=== PATIENT | female | born 1960 | race Caucasian/White ===

== ENCOUNTER 2017-06-13 10:47 | Emergency (ER) | payer MEDICARE ==
[2017-06-13 11:12] VITALS: BP 130/82
[2017-06-13] MEDS ORDERED: Ibuprofen TAB* 600 MG PO ONE (11:47)
[2017-06-13] MEDS ORDERED: Lidocaine/Epineph/Tetraca SOL* (LET solution) 4 ML BTL TOPICAL ONE (11:48)
[2017-06-13] MEDS ORDERED: Sulfamethox/Trimethoprim DS 800/160* TAB PO ONE (11:52)
--- NOTE | 2017-06-13 11:52 | UC ---
Skin Complaint HPI - HPI Summary HPI Summary: abscess on lower abdomen worsening over past 4-5 days - History of Current Complaint Chief Complaint: UCSkin Time Seen by Provider: 06/13/17 11:36 Stated Complaint: PERSONAL SKIN COMPLAINT Hx Obtained From: Patient Hx Last Menstrual Period: age 32 yrs ?: No Onset/Duration: Sudden Onset, Lasting Days, Worse Since - past 2 days Timing: Constant Onset Severity: Mild Current Severity: Moderate Pain Intensity: 6 Pain Scale Used: 0-10 Numeric Location: Discrete - lower abdomen, pubic mons Character: Swelling, Pain, Redness, Raised Aggravating: Nothing Alleviating: Heat, OTC Meds Associated Signs & Symptoms: Positive: Tenderness - Allergy/Home Medications Allergies/Adverse Reactions: Allergies Allergy/AdvReac Type Severity Reaction Status Date / Time Adhesive Tape Allergy Intermediate RASH AND Verified 06/13/17 11:13 BLISTERS Codeine Allergy Unknown Nausea And Verified 06/13/17 11:13 Vomiting Penicillins Allergy Unknown Hives Verified 06/13/17 11:13 Review of Systems Constitutional: Negative Skin: Negative - 15 x9 cm of erythema, Other Eyes: Negative ENT: Negative Respiratory: Negative Cardiovascular: Negative Gastrointestinal: Negative Genitourinary: Negative Motor: Negative Neurovascular: Negative Musculoskeletal: Negative Neurological: Negative Psychological: Negative Is Patient Immunocompromised?: Yes - diabetic--hx MRSA infections All Other Systems Reviewed And Are Negative: Yes PMH/Surg Hx/FS Hx/Imm Hx Previously Healthy: No - MRSA skin infections Endocrine History: Diabetes - Surgical History Surgical History: Yes Surgery Procedure, Year, and Place: Hysterectomy - 1997 [facility], [facility]. Oophorectomy - 1997 [facility], [facility]. Back Surgery 7 times, fusion/rodding. Section - 1979. Section - 1981. Tonsillectomy/Adenoidectomy - 1975. Carpal Tunnel Release - 2007 (Right); right knee 2012 - Family History Known Family History: Positive: None - Social History Occupation: Disabled Lives: With Family Alcohol Use: Occasionally Alcohol Amount: 1-2 DRINK/MONTH Substance Use Type: None Smoking Status (MU): Former Smoker Type: Cigarettes Amount Used/How Often: 1PPD 10 YRS Have You Smoked in the Last Year: No When Did the Patient Quit Smoking/Using Tobacco: 05/2011 Physical Exam Triage Information Reviewed: Yes Appearance: No Pain Distress, Ill-Appearing - chronic, Obese Vital Signs: Initial Vital Signs Temp 98.5 F 06/13/17 11:01 Pulse 90 06/13/17 11:01 Resp 20 06/13/17 11:01 BP 130/82 06/13/17 11:01 Vital Signs Reviewed: Yes Eye Exam: Normal Eyes: Positive: Conjunctiva Clear ENT Exam: Normal ENT: Positive: Normal ENT inspection, Hearing grossly normal. Negative: Nasal congestion, Nasal drainage, Trismus, Muffled/hoarse voice Dental Exam: Normal Neck exam: Normal Neck: Positive: Supple, Nontender, No Lymphadenopathy Respiratory Exam: Normal Respiratory: Positive: Chest non-tender, Normal breath sounds, No respiratory distress, No accessory muscle use Cardiovascular Exam: Normal Cardiovascular: Positive: RRR, Pulses Normal, Brisk Capillary Refill Musculoskeletal Exam: Normal Musculoskeletal: Positive: Strength Intact, ROM Intact, No Edema Neurological Exam: Normal Neurological: Positive: Alert Psychological Exam: Normal Skin Exam: Normal Skin: Positive: Other - 15x9 cm erythma on pubic mons 5 x5 cm induration, Course/Dx - Course Course Of Treatment: Hot packs every couple of hours, bactrim, pain med follow with PCP on Friday for re-check - Differential Diagnoses - Skin Complaint Differential Diagnoses: Abscess, Cellulitis, Contact Dermatitis, Diabetes - Diagnoses Provider Diagnoses: Abscess with cellulitis Mons Pubis, NIDDM Discharge - Discharge Plan Condition: Stable Disposition: HOME Prescriptions: Sulfamethox/Trimethoprim DS* [Bactrim DS 800/160 TAB*] 1 tab PO BID #19 tab traMADol TAB* [Ultram*] 50 mg PO Q6HR PRN #30 tab MDD 4 PRN Reason: Pain Patient Education Materials: Abscess (ED), Cellulitis (ED), Warm Compress or Soak (ED) Referrals: Aarti Almazan NP [Primary Care Provider] - 06/16/17
== END 2017-06-13 13:05 | disposition home or self-care (01) ==
LOC: UCCORT 10:47
DX: L02.215 Cutaneous abscess of perineum (principal); E11.9 Type 2 diabetes mellitus without complications; Z87.891 Personal history of nicotine dependence; Z88.5 Allergy status to narcotic agent; Z88.0 Allergy status to penicillin
CPT/HCPCS: 10060; 99213; A9270-GY; G0463

== ENCOUNTER 2018-09-17 06:02 | Inpatient (IN) | payer MEDICARE ==
[~2018-09-17 06:02] MED LIST: Buffered Lidocaine 0.9% SYRIN* 5 ML/SYR SYRINGE INTRADERM ONE; DiMENhydriNATE IV* 50 MG/ML VIAL IV PUSH PRN; Famotidine IV* 10 MG/ML 2 ML (20 mg) IV ONE; Lactated Ringers 1000 ML Bag* 1,000 ML IV SCH; Morphine VIAL* 4 MG/ML VIAL (1 ml vial) IV PRN; Naloxone* 0.4 MG/ML 1 ML VIAL IV PRN; Ondansetron TAB* 4 MG PO ONE; PROCHLORPERAZINE INJ 5 MG/ML 2 ML VIAL IV PRN; Scopolamine 1.5 mg* PATCH TRANSDERM ONE; fentaNYL* 50 MCG/ML 2 ML VIAL (100 MCG VIAL) IV PRN; oxyCODONE/Acetamin 5/325 MG* TAB PO PRN
[2018-09-17] MEDS ORDERED: Thrombin 5,000 UNITS(BOVINE)* for Ultrasound Guided Pseudoaneursym ONE (06:38)
[2018-09-17] MEDS ORDERED: Bacitracin IV* 50,000 UNITS INJ ONE (06:38)
[2018-09-17] MEDS ORDERED: Lidocain 1% EPI 1:100,000 * 30 ML MDV ONE (06:38)
[2018-09-17] MEDS ORDERED: Clindamycin 900 MG/D5W BAG(*) 900 MG/50 ML BAG IVPB ONE (06:50)
[2018-09-17] MEDS ORDERED: Famotidine IV* 10 MG/ML 2 ML (20 mg) ONE (06:51)
[2018-09-17] MEDS ORDERED: Ondansetron ODT TAB* 4 MG ONE (06:52)
[2018-09-17] MEDS ORDERED: Scopolamine 1.5 mg* PATCH ONE (06:52)
[2018-09-17] MEDS ORDERED: fentaNYL* 50 MCG/ML 5 ML VIAL (250 MCG VIAL) ONE (07:11)
[2018-09-17] MEDS ORDERED: Atracurium* 10 MG/ML 10 ML VIAL ONE (07:11)
[2018-09-17] MEDS ORDERED: Insulin REGULAR(*) 1 UNITS UNIT ONE ×3 (07:11→09:51)
[2018-09-17] MEDS ORDERED: Midazolam* 1 MG/ML 5 ML VIAL (5 MG) ONE (07:12)
[2018-09-17] MEDS ORDERED: KETAMINE HCL* 50 MG/ML 10 ML VIAL ONE (07:12)
[2018-09-17] MEDS ORDERED: Phenylephrine INJ* 10 MG/ML 1 ML VIAL (10 MG) ONE (08:17)
[2018-09-17] MEDS ORDERED: Propofol* 10 MG/ML 20 ML BTL ONE (08:17)
[2018-09-17] MEDS ORDERED: Ketorolac INJ* 30 MG/ML 1 ML VIAL ONE (08:17)
[2018-09-17] MEDS ORDERED: Glycopyrrolate IV* 0.2 MG/ML 1 ML VIAL ONE (08:17)
[2018-09-17] MEDS ORDERED: Neostigmine Methylsulfate* 1 MG/ML 10 ML VIAL (1 mg/ml) ONE (08:17)
[2018-09-17] MEDS ORDERED: Ondansetron INJ* 2 MG/ML VIAL IV PRN (09:23)
[2018-09-17] MEDS ORDERED: Zolpidem TAB* 10 MG PO PRN (09:23)
[2018-09-17] MEDS ORDERED: Magnesium Hydroxide LIQ* 30 ML UDC PO PRN (09:23)
[2018-09-17] MEDS ORDERED: oxyCODONE TAB* 5 MG TAB PO PRN (09:23)
[2018-09-17] MEDS ORDERED: Acetaminophen TAB* 325 MG PO PRN (09:23)
[2018-09-17] MEDS ORDERED: Cyclobenzaprine TAB* 10 MG PO PRN (09:27)
[2018-09-17] MEDS ORDERED: Ibuprofen TAB* 800 MG PO PRN (09:27)
[2018-09-17] MEDS ORDERED: traMADol TAB* 50 MG PO PRN (09:27)
[2018-09-17] MEDS ORDERED: Lactated Ringers 1000 ML Bag* 1,000 ML IV SCH (10:00)
[2018-09-17] MEDS ORDERED: hydrALAZINE IV* 20 MG/ML VIAL ONE (10:42)
[2018-09-17] MEDS ORDERED: Dextrose 50% Syringe 50 ML* 25 GM/50 ML SYRINGE IV PUSH PRN (13:29)
[2018-09-17] MEDS ORDERED: Polyethylene Glycol 3350* 17 GM PACKET PO PRN (13:56)
--- NOTE | 2018-09-17 15:43 | CONS ---
CC: Dr. Julianna Catalan [facility] MEDICINE CONSULTATION REPORT: DATE OF CONSULT: 09/17/18 PRIMARY CARE PHYSICIAN: Dr. Julianna Catalan. ATTENDING PHYSICIAN: Dr. Carmichael. CONSULTING PHYSICIAN: Dr. Elvis Reid (dictation provided by Prisca Rivero NP). REASON FOR CONSULT: Medical co-management in a patient admitted for a decompressive lumbar laminectomy to L2-L3. HISTORY OF PRESENT ILLNESS: Ms. Lynn is a 57-year-old female with uncontrolled type 2 diabetes, morbid obesity, and hypertension, who presents today to the hospital for a planned decompressive lumbar laminectomy with Dr. Neville Carmichael. Ms. Lynn has had ongoing pain to her lumbar spine. She was evaluated by Dr. Carmichael and plans were made for a decompressive lumbar laminectomy to L2-L3. Ms. Lynn states that she was feeling well prior to surgery other than her chronic back pain. She does have uncontrolled type 2 diabetes. She recently had a consultation with Dr. Hollis Kong from Endocrinology and he has adjusted her regimen to attempt to achieve better glucose control. She is currently on metformin and Jardiance. Here in the hospital, her blood glucose has been elevated to approximately 300. Her last hemoglobin A1c was approximately 9. She is also on multiple agents for blood pressure control. In the immediate postoperative period, her blood pressure has been running a little bit low 90 to 110. PAST MEDICAL HISTORY: 1. Type 2 diabetes, thus far not on insulin. 2. Hypertension. 3. Depression. 4. Morbid obesity. MEDICATIONS: 1. Tramadol 50 mg p.o. q.6 hours p.r.n. 2. Pravastatin 10 mg p.o. at bedtime. 3. Paroxetine 40 mg p.o. q.p.m. 4. Multivitamin with mineral 1 tablet p.o. q.a.m. 5. Metformin 1000 mg p.o. b.i.d. 6. Meloxicam 15 mg p.o. q.a.m. 7. Losartan/hydrochlorothiazide 100/25 one tab p.o. q.a.m. 8. Ibuprofen 800 mg p.o. t.i.d. p.r.n. 9. Jardiance 10 mg p.o. q.a.m. 10. Cyclobenzaprine 5 mg p.o. at bedtime p.r.n. 11. Cyanocobalamin 500 mcg p.o. q.a.m. 12. Cholecalciferol 1000 mg p.o. q.a.m. 13. Aspirin 81 mg p.o. daily. 14. Amlodipine 5 mg p.o. q.a.m. ALLERGIES: ADHESIVE TAPE, CODEINE, PENICILLIN, and ROSUVASTATIN. FAMILY HISTORY: Her dad at age 72. He had hypertension, diabetes, and Alzheimer's. Mother and she had history of ALS, breast cancer, hypertension, and diabetes. SOCIAL HISTORY: No report of alcohol, tobacco, or drug use. REVIEW OF SYSTEMS: A 14-point review of systems was completed with Ms. Lynn and all those not mentioned above were negative. PHYSICAL EXAM: Vitals: Temperature 97.7, pulse rate 91, respiratory rate 16, O2 saturation 98% on 2 L nasal cannula, blood pressure 115/77. General: Ms. Lynn is lying in bed. She is in no acute distress. Neuro: She is alert, she is oriented x3. She moves all extremities equally. There is no facial asymmetry or focal weakness. Extraocular movements are intact. Heart: S1, S2. No murmur, rub, or gallop, and regular. Lungs are clear to auscultation bilaterally with no accessory muscle use and good aeration. The abdomen is soft , nontender with bowel sounds positive x4. Extremities: No cyanosis or edema. Skin is intact. LABORATORY DATA: Preoperatively on 08/20/18, WBC 8.2, hemoglobin 14.6, hematocrit 43, platelet count 167. Sodium 133, potassium 3.9, chloride 95, serum bicarbonate 28, BUN 21, creatinine 0.84, glucose 410. Hemoglobin A1c last checked on 05/18/18 was 9.3. ASSESSMENT AND PLAN: Ms. Lynn is a 57-year-old female with a past medical history of morbid obesity, diabetes, and hypertension, who presents today to the hospital for an L2-L3 decompressive lumbar laminectomy with Dr. Carmichael. Our recommendations are as follows: 1. Postop day 0, status post decompressive lumbar laminectomy: Management per Dr. Carmichael's team. The patient is on pain medications p.r.n. under his direction. She will have a bowel regimen. 2. Type 2 diabetes. The patient's blood glucose is uncontrolled here in the hospital today, which is not surprising given that she has had difficulty with glucose control even at home. Plan to hold her oral medications and she will have Lantus at 15 units tonight with a lispro sliding scale for her meal coverage and we can adjust Lantus as needed going forward. 3. Hypertension. The patient's blood pressure has been running a little on the lower side at approximately 90 to 110 systolically. Plan to hold hydrochlorothiazide and losartan and this can be resumed when her blood pressure is more robust. We will continue amlodipine for now. 4. Depression. Continue Paxil. 5. Hyperlipidemia. Continue pravastatin. 6. Code status is full code. TIME SPENT: Approximately 60 minutes was spent on the consultation of this patient, more than half of the time was spent with the patient at the bedside reviewing the events leading up to this hospitalization, performing the physical examination, and reviewing my plan of care. PRISCA RIVERO NP [id number]/[facility] #: [id number] LUANA
[2018-09-17] MEDS: PARoxetine HCL TAB* 20 MG PO SCH (17:34)
[2018-09-17] MEDS: Insulin LISPRO* 1 UNITS UNIT SUBCUT SCH (17:34)
[2018-09-17] MEDS ORDERED: Insulin GLARGINE(*) 1 UNITS UNIT SUBCUT SCH (21:00)
[2018-09-17] MEDS: CMCS Pravastatin (NF) 20 MG TAB PO SCH (21:07)
[2018-09-17] MEDS: Senna TAB PO SCH (21:08)
[2018-09-18] MEDS ORDERED: Dextrose 50% Syringe 50 ML* 25 GM/50 ML SYRINGE IV PUSH PRN ×2 (07:13→12:48)
[2018-09-18] MEDS ORDERED: Losartan TAB* 25 MG PO SCH (09:00)
[2018-09-18] MEDS ORDERED: Hydrochlorothiazide TAB* 25 MG PO SCH (09:00)
[2018-09-18] MEDS ORDERED: EMPAGLIFLOZIN 10 MG PO SCH (09:00)
[2018-09-18] MEDS: Insulin LISPRO* 1 UNITS UNIT SUBCUT SCH ×6 (09:34→17:40)
[2018-09-18] MEDS: amLODIPine TAB* 5 MG PO SCH (09:34)
[2018-09-18] MEDS: Docusate CAP* 100 MG PO SCH (09:34)
[2018-09-18] MEDS: Meloxicam(NF) 15 MG TAB PO SCH (09:35)
--- NOTE | 2018-09-18 10:34 | PN ---
Progress Note - Progress Note Date of Service: 09/18/18 SOAP: Subjective: []POD # 1 C/o moderate incisional pain Pre op leg pain reduced BS are running high with hospitalist on board Objective: []Moderate drain output Blood sugars trending high Assessment: []Satis post op course Plan: []Convert to inpatient status Drain output requires further monitoring
[2018-09-18] MEDS ORDERED: Insulin LISPRO* 1 UNITS UNIT SUBCUT ONE (12:48)
--- NOTE | 2018-09-18 13:00 | PN ---
Subjective Date of Service: 09/18/18 Interval History: Patient has minimal pain at incision site. Patient denies any LE weakness, numbness, or tingling. Patient denies CP, SOB, N/V, abdominal pain, diarrhea, F/ C, dizziness, or other pain. Patient states that she sees Dr. Kong for her diabetes. Patient states that her Blood Glucose control has been much better at home. Family History: Unchanged from Admission Social History: Unchanged from Admission Past Medical History: Unchanged from Admission Objective Active Medications: Acetaminophen (Tylenol Tab*) 650 mg PO Q4H PRN PRN Reason: PAIN Amlodipine Besylate (Norvasc Tab*) 5 mg PO QAM [facility] Last Admin: 09/18/18 09:34 Dose: 5 mg Cyclobenzaprine HCl (Flexeril Tab*) 5 mg PO BEDTIME PRN PRN Reason: PAIN - BACK Dextrose (D50w Syringe 50 Ml*) 12.5 gm IV PUSH .FOR FS < 60 - SS PRN PRN Reason: FS < 60 Docusate Sodium (Colace Cap*) 100 mg PO DAILY [facility] Last Admin: 09/18/18 09:34 Dose: 100 mg Lactated Ringer's (Lactated Ringers 1000 Ml Bag*) 1,000 mls @ 75 mls/hr IV .per rate [facility] Last Admin: 09/17/18 11:10 Dose: 75 mls/hr Ibuprofen (Motrin Tab*) 800 mg PO TID PRN PRN Reason: PAIN Insulin Glargine (Lantus(*)) 20 units SUBCUT 2100 [facility] Insulin Human Lispro (Humalog*) 0 units SUBCUT AC [facility]; Protocol Last Admin: 09/18/18 12:37 Dose: 15 units Insulin Human Lispro (Humalog*) 5 units SUBCUT AC [facility] Last Admin: 09/18/18 12:37 Dose: 5 units Magnesium Hydroxide (Milk Of Magnesia Liq*) 30 ml PO DAILY PRN PRN Reason: CONSTIPATION Meloxicam (Mobic(Nf)) 15 mg PO QAM [facility] Last Admin: 09/18/18 09:35 Dose: Not Given Ondansetron HCl (Zofran Inj*) 4 mg IV Q6H PRN PRN Reason: NAUSEA/VOMITING Oxycodone HCl (Roxycodone Tab*) 10 mg PO Q4H PRN PRN Reason: marked pain Paroxetine HCl (Paxil Tab*) 40 mg PO QPM [facility] Last Admin: 09/17/18 17:34 Dose: 40 mg Pharmacy Profile Note (Scopolamine Patch Remove*) 1 note PATCH OFF ONCE ONE Stop: 09/20/18 06:01 Polyethylene Glycol/Electrolytes (Miralax*) 17 gm PO DAILY PRN PRN Reason: CONSTIPATION Pravastatin Sodium (Pravachol (Nf)) 10 mg PO BEDTIME [facility] Last Admin: 09/17/18 21:07 Dose: 10 mg Senna (Senokot Tab*) 1 tab PO BEDTIME [facility] Last Admin: 09/17/18 21:08 Dose: Not Given Tramadol HCl (Ultram*) 50 mg PO Q6HR PRN PRN Reason: Pain Zolpidem Tartrate (Ambien Tab*) 10 mg PO BEDTIME PRN PRN Reason: INSOMNIA Vital Signs - 8 hr 09/18/18 09/18/18 09/18/18 07:30 08:00 11:25 Temperature 98.8 F 99.0 F Pulse Rate 92 96 Respiratory 17 18 16 Rate Blood Pressure 123/82 126/80 (mmHg) O2 Sat by Pulse 92 97 Oximetry Oxygen Devices in Use Now: None Appearance: Patient is a 57yo female who appears stated age and is sitting in the bed in [facility]. Eyes: No Scleral Icterus, PERRLA Ears/Nose/Mouth/Throat: NL Teeth, Lips, Gums, Clear Oropharnyx, Mucous Membranes Moist Neck: NL Appearance and Movements; NL JVP, Trachea Midline Respiratory: Symmetrical Chest Expansion and Respiratory Effort, Clear to Auscultation Cardiovascular: NL Sounds; No Murmurs; No JVD, RRR, No Edema Abdominal: NL Sounds; No Tenderness; No Distention, No Hepatosplenomegaly Lymphatic: No Cervical Adenopathy Extremities: No Edema, No Clubbing, Cyanosis Skin: No Nodules or Sclerosis, - - Lumbar incision with drain. Neurological: Alert and Oriented x 3, NL Sensation, NL Muscle Strength and Tone , - - CN II-XII intact. Microbiology and Other Data: Microbiology 09/17/18 11:05 Nasal Screen MRSA (PCR) - Final Nasal Mrsa Not Detected Assess/Plan/Problems-Billing Assessment: Patient is a 57yo female with a PMH for obesity, DM II who is admitted for a scheduled lumber laminectomy and is dooing well postoperatively except for uncontrolled hyperglycemia. - Patient Problems (1) Post-operative state Current Visit: Yes Status: Acute Code(s): Z98.890 - OTHER SPECIFIED POSTPROCEDURAL STATES SNOMED Code(s): 35475846 Comment: - Management per Neurosurgery - IRENE drain in place. - No complications. (2) DMII (diabetes mellitus, type 2) Current Visit: Yes Status: Acute Comment: - Very poor control in the hospital - Increase glargine and scheduled mealtime insulin - Will resume oral medications at D/C - Will need F/U with endocrinology. (3) HTN (hypertension) Current Visit: Yes Status: Acute Code(s): I10 - ESSENTIAL (PRIMARY) HYPERTENSION SNOMED Code(s): 99625375 Comment: - Normotensive on only Amlodipine - Continue to hold HCTZ, Losartan - Resume when able. (4) Obesity Current Visit: Yes Status: Acute Code(s): E66.9 - OBESITY, UNSPECIFIED SNOMED Code(s): 975732847 Comment: - Avoid insulin therapy at discharge (5) Full code status Current Visit: Yes Status: Acute Code(s): Z78.9 - OTHER SPECIFIED HEALTH STATUS SNOMED Code(s): 413065441 Status and Disposition: Inpatient, disposition per Ortho.
[2018-09-18] MEDS: PARoxetine HCL TAB* 20 MG PO SCH (17:39)
[2018-09-18] MEDS: CMCS Pravastatin (NF) 20 MG TAB PO SCH (20:53)
[2018-09-18] MEDS: Senna TAB PO SCH (20:53)
[2018-09-18] MEDS ORDERED: Insulin GLARGINE(*) 1 UNITS UNIT SUBCUT SCH (21:00)
[2018-09-19 07:28] VITALS: BP 132/97
[2018-09-19] MEDS: Docusate CAP* 100 MG PO SCH (07:41)
[2018-09-19] MEDS: Meloxicam(NF) 15 MG TAB PO SCH (07:41)
[2018-09-19] MEDS: amLODIPine TAB* 5 MG PO SCH (07:41)
[2018-09-19] MEDS: Insulin LISPRO* 1 UNITS UNIT SUBCUT SCH ×2 (09:08)
[2018-09-20] MEDS ORDERED: Scopolamine PATCH Remove* 1 NOTE MISC PATCH OFF ONE (06:00)
--- NOTE | 2018-09-23 03:51 | OP ---
DATE OF OPERATION: 09/17/18 - ROOM #340 DATE OF : 60 PRIMARY SURGEON: Dr. Neville Carmichael. ANESTHESIA: General. PRE-OPERATIVE DIAGNOSIS: Lumbar spinal stenosis, L2-3. POST-OPERATIVE DIAGNOSIS: Lumbar spinal stenosis, L2-3. OPERATIVE PROCEDURE: Decompressive lumbar laminectomy at L2-3 with foraminotomy at L2-3 bilaterally. DESCRIPTION OF PROCEDURE: After satisfactory general anesthesia was obtained, the patient was placed on the operating table in the prone position with the chest supported on the Shravan frame and the back slightly flexed. The lumbar region was then clipped, prepped, and draped in a sterile manner for lumbar laminectomy and a skin incision outlined from L2 to L4. This patient had undergone multiple previous lumbar surgeries and was morbidly obese. The incision was infiltrated with 1% Xylocaine with epinephrine, after which it was turned down sharply to the level of the lumbar fascia. The fascia and scar tissue were dissected free from the posterior elements from L2 to L3 and the paraspinal musculature stripped away from these posterior elements using the periosteal elevator and monopolar cautery. On the left side, additional lateral exposure was obtained until the uppermost screw and a previous construct was identified. Preoperative radiographs had shown a unilateral construct with screws, the most superior of which was at L3 on the left. After identifying the L3 pedicle screw, the distorted anatomy made more sense and a decompression was then performed at the L2-3 level. The spinous process of L2 was removed and the remaining portion of the base of the spinous process of L2 and medial aspect of the facet complex was thinned out with the Midas Ronnell drill. A decompression was then carried out and carried superiorly until the attachment of the ligamentum flavum was taken down. Ligamentum flavum was removed with the Kerrison. The pathology was a combination of marked bony facet hypertrophy as well as ligamentous thickening. The dissection was carried inferiorly until generous foraminotomy had been carried out over both L3 nerve roots. At the conclusion of the decompression, the dural sac was noted to be pulsatile and no further compromise was noted. After assuring adequate hemostasis, wound was thoroughly irrigated, after which a piece of Gelfoam was placed over the laminectomy defect. The drain was placed in the epidural space and tunneled out toward the left side. The fascia was then reapproximated with 0 Vicryl suture. The subcutaneous tissue was closed with 3- 0 Vicryl suture and the skin closed with skin clips. The estimated blood loss was 100 cc and the final sponge, padding, and needle counts were correct. The patient was taken to the recovery room, extubated, and in stable condition. [id number]/[facility] #: [id number] MTDD
== END 2018-09-19 11:40 | disposition home or self-care (01) | DRG 940 ==
LOC: OR 06:02 → SSU 08:27 → OBSVTOIN 09-18 08:27
PROVIDERS: ADMIT Neurological Surgery; ATTEND Neurological Surgery
PROC: 01NB0ZZ Release Lumbar Nerve, Open Approach (ICD-10-PCS; principal; 2018-09-17 07:30)
DX: G89.18 Other acute postprocedural pain (principal); Z68.43 Body mass index [BMI] 50.0-59.9, adult; M48.062 Spinal stenosis, lumbar region with neurogenic claudication; E11.65 Type 2 diabetes mellitus with hyperglycemia; E66.01 Morbid (severe) obesity due to excess calories; I10 Essential (primary) hypertension; F32.9 Major depressive disorder, single episode, unspecified; E78.5 Hyperlipidemia, unspecified; Z79.84 Long term (current) use of oral hypoglycemic drugs; Z79.1 Long term (current) use of non-steroidal anti-inflammatories (NSAID); Z79.82 Long term (current) use of aspirin; Z79.899 Other long term (current) drug therapy; Z88.5 Allergy status to narcotic agent; Z88.0 Allergy status to penicillin; Z88.8 Allergy status to other drugs, medicaments and biological substances; Z91.048 Other nonmedicinal substance allergy status; Z82.49 Family history of ischemic heart disease and other diseases of the circulatory system; Z83.3 Family history of diabetes mellitus; Z80.3 Family history of malignant neoplasm of breast; Z80.7 Family history of other malignant neoplasms of lymphoid, hematopoietic and related tissues; Z87.891 Personal history of nicotine dependence
CPT/HCPCS: 87641; 90686; A9270-GY; G0378; J0360; J1885; J2250; J2704; J2710; J3010

== ENCOUNTER 2018-10-04 18:25 | Inpatient (IN) | payer MEDICARE ==
--- OUTSIDE RECORDS SUMMARY | 2018-10-04 18:40 | XMS REPORT | Continuity of Care Document ---
:1960 External Reference #:[id number] Author Name Tyjimmy Fidelia Care Team Providers Name Role Phone Julianna Catalan MD Primary Care Physician Unavailable Payers Type Date Identification Numbers Payment Provider Subscriber Policy Number: [id number] Medicare Ayana Lynn PayID: [id number] [address] [place] [address] Effective: 2011 Policy Number: [id number] Medicare Ayana Lynn Expires: 2018 PayID: [id number] [address] [place] [address] Effective: 2008 Policy Number: [id number] [facility] Ppo Julian Lynn Expires: 2011 Group Number: [id number] [address] [address] PayID: [id number] SAM Haskins [id number] Expires: 2016 PayID: [id number] Medicare D - Drug Plan Ayana Lynn Effective: 2015 Policy Number: 70% [facility] Ayana Lynn Expires: 2017 PayID: [id number] [address] Advance Directives Type Date Description Status Comment Other Directive 01/02/2016 Health Care Proxy Current and Verified Problems Date Description Provider Status Onset: 08/22/2010 Morbid obesity Lauryn Khalil M.D., FACP Active Onset: 10/20/2011 Type II diabetes mellitus Julianna Catalan M.D. Active uncontrolled Onset: 08/22/2010 Benign essential hypertension Lauryn Khalil M.D., FACRuben Active Onset: 08/22/2010 Depressive disorder Lauryn Khalil M.D., [facility] Active Family History Date Family Member(s) Problem(s) Comments Father due to at age 72, HTN, DM, () Alzheimers Mother due to ALS, Breast Cancer(50's) HTN, () Diabetes Siblings 3 Siblings 2 Brothers and 1 Sister 1 Brother with DM Social History Type Date Description Comments Sex Unknown Marital Status Lives With Spouse Occupation Disabled Tobacco Use Start: Unknown End: Former Cigarette Smoker Smoked for 10 Unknown years, quit 2000 ETOH Use Occasionally consumes alcohol Tobacco Use Start: Unknown End: Patient is a former Quit 10 years ago Unknown smoker Recreational Drug Use Denies Drug Use Smoking Status Reviewed: 09/28/18 Patient is a former Quit 10 years ago smoker Exercise Type/Frequency Exercises regularly Walking 2 - 3 days weekly Allergies, Adverse Reactions, Alerts Date Description Reaction Status Severity Comments 05/08/2010 Penicillin hives Active Severe 05/08/2010 Codeine Nausea and Vomiting Active Moderate 04/23/2016 Crestor Active muscle aches Medications Medication Date Status Form Strength Qnty SIG Indications Ordering Provider Jardiance 07/31 Active Tablets 10mg 30tab 10mg by E11.65 Shafer s mouth MD Dilan daily Pravastatin 07/30 Active Tablets 10mg 30tab take 10mg E78.5 Shafer Sodium s once daily MD Dilan at bedtime Precision Xtra 07/30 Active Kit w/Device 1unit use 4 E11.65 Shafer /2018 s times MD Dilan daily and as needed Precision Xtra 07/30 Active Strips 100un use 4 E11.65 Shafer Blood Glucose its times MD Dilan Test Strips daily and as needed for glucose testing Cyclobenzaprine 07/15 Active Tablets 5mg 30tab 1 by mouth M54.5 Aarti HCL s at bedtime Varn, N.P. as needed for back pain Ibuprofen 07/15 Active Tablets 800mg 60tab by mouth M54.5 Aarti 2018 s three Varn, N.P. times a day as needed mdd 3 BD Pen 05/02 Active Misc 31G X 8 120un use with Aarti Needle/Short/Ult mm its insulin Varn, N.P. rafine/31G X daily 02/04" Losartan 08/28 Active Tablets 100-25mg 90tab take 1 Potassium/Hydroc s tablet by Varn, N.P. hlorothiazide mouth once daily Freestyle Lite 08/05 Active Strips 200un test twice Test its daily or Varn, N.P. as needed Freestyle 08/05 Active Misc 180un twice Aarti Lancets its daily or Varn, N.P. as needed Ketoconazole 04/23 Active Cream 2% 60gm apply once R21 daily to Varn, N.P. affected area Meloxicam 04/23 Active Tablets 15mg 30tab 1 by mouth M25.50 s every day Varn, N.P. Freestyle 08/22 Active Kit W/Device 1unit To test E11.65 Aarti [place] s fasting q Varn, N.P. am and 2 hours after dinner Amlodipine 01/19 Active Tablets 5mg 90tab take 1 I10 Aarti Besylate s tablet by Varn, N.P. mouth daily Triamcinolone 12/31 Active Cream 0.1% 30uni apply Aarti Acetonide ts twice a Varn, N.P. day until clear Tramadol HCL 06/15 Active Tablets 50mg 120ta take 2 M15.0 bs tablets 3 Varn, N.P. to 4 times a day as needed. Paroxetine HCL 06/15 Active Tablets 40mg 90tab take 1 F32.9 s tablet Varn, N.P. daily Freestyle Lite 06/14 Active 1unit as Lauryn Glucometer s Directed Adeline Khalil, FACP Asprin Active 81mg 1 tablet Lauryn daily Adeline Khalil, FACP Vitamin B-12 Active Tablets 500mcg 90tab qd Unknown Natural s Multi For Her Active Capsules 1 po qd Unknown Vitamin D Active Capsules 1000Unit 1 by mouth Unknown (Cholecalciferol every day ) Metformin HCL ER Active Tablets ER 500mg 360ta take 2 Aarti /0000 24HR bs tablets by Varn, N.P. mouth with dinner and 2 tablets with breakfast Steglatro 07/30 Hx Tablets 15mg 30tab take 12 E11. s tablet MD Dilan - once daily 07/31 in the morning Medrol 07/28 Hx TBPK 4mg 21uni 6 by mouth M54.17 ts day 1, 5 Varn, N.P. - by mouth 08/03 day 2, by mouth day 3, 3 by mouth day 4, 2 by mouth day 5, 1 by mouth day 6 Vitamin D3 Ultra 05/18 Hx Tablets 83414Hlvj 8tabs one by Aarti mouth once Varn, N.P. - weekly 07/28 Prandin 12/25 Hx Tablets 2mg 540ta take 2 bs tablets by Varn, N.P. - mouth 07/29 meals Prandin 08/25 Hx Tablets 2mg 540ta take 2 . bs tablets by Varn, N.P. - mouth 12/25 meals Sulfamethoxazole 06/20 Hx Tablets 800-160mg 14tab one by L08.9 Aarti /Trimethoprim s mouth Varn, N.P. - twice a 06/27 day for days Lantus Solostar 06/20 Hx Solution 100Unit/M 60ml inject 10 Pen-Inject L units Varn, N.P. - subcutaneo 08/25 usly evening and increase by 5 units every 3 days until your fasting levels are 120 Lantus Solostar 05/02 Hx Solution 100Unit/M 60ml inject 10 Pen-Inject L units Varn, N.P. - subcutaneo 05/02 usly evening Trulicity 04/28 Hx Solution 0.75mg/0. 6ml 1 E11 Pen-Inject 5ML injection Varn, N.P. - once 05/02 Doxycycline 03/19 Hx Tablets 20mg 20tab 1 by mouth Aarti s twice a Varn, N.P. - day for Januvia 02/28 Hx Tablets 100mg 30tab 1 by mouth E11.65 s every day Varn, N.P. - 08/25 Glipizide XL 10/03 Hx Tablets ER 10mg 60tab 2 by mouth 24HR s every day Varn, N.P. - 07/30 Glipizide XL 09/10 Hx Tablets ER 10mg 90tab 1 by mouth 24HR s every day Varn, N.P. - 10/03 Bactrim DS 07/16 Hx Tablets 800-160mg 20tab one by L03.116 s mouth Varn, N.P. - twice a 07/26 day for days Farxiga 04/23 Hx Tablets 10mg 30tab one by E11.65 s mouth Varn, N.P. - every in 04/26 morning Bactrim DS 03/28 Hx Tablets 800-160mg 20tab one by L08.9 s mouth Varn, N.P. - twice a 04/07 day for days Mupirocin 03/28 Hx Ointment 2% 44gm apply once L08.9 daily to Varn, N.P. - rash 04/11 Repaglinide 08/22 Hx Tablets 2mg 90tab take 1 E11.65 s tablets Varn, N.P. - before 07/16 each Proctofoam HC 08/22 Hx Foam 1-1% 1unit apply bid E11.65 s for 10 Varn, N.P. - days 10/03 Crestor 08/22 Hx Tablets 5mg 30tab 1 by mouth E78.2 s every day Varn, N.P. - 04/23 Atorvastatin 06/19 Hx Tablets 10mg 30tab 1 by mouth E78.2 s every day Varn, N.P. - 08/22 Bactrim DS 06/19 Hx Tablets 800-160mg 14tab one by L08.9 s mouth Varn, N.P. - twice a 06/26 day for days Januvia 06/05 Hx Tablets 100mg 90tab 1 by mouth 250.02 s every day Varn, N.P. - 06/19 Klor-Con M15 06/05 Hx Tablets ER 15Meq 90tab 1 by mouth 327.52 s every day Varn, N.P. - 06/28 Ciprofloxacin 05/10 Hx Tablets 500mg 20tab take one 599.0 Hubert HCL s tablet Farhan, [employer] - twice a 05/20 day for days Bactrim DS 01/19 Hx Tablets 800-160mg 20tab one by 686.9 s mouth Varn, N.P. - twice a 01/29 day for days Neomycin/Polymyx 07/11 Hx Suspension 3.5-30193 10ml 4 drops 380.22 Hubert in/Dexamethasone -0.1 each ear Farhan, [employer]LE[employer] PRES[employer] - four times 10/17 a day 7 days Promethazine-DM 07/11 Hx Syrup 6.25-15mg 473ml take 5ml 461.8 Hubert /2014 /5ML every 4-6 Farhan, [employer]LE[employer] PRESIDENT - hours as 10/17 needed cough. Levofloxacin 07/11 Hx Tablets 500mg 10tab one by 461.8 Hubert s mouth Farhan, [employer]LE[employer] PRESIDENT - daily for 10/17 Valacyclovir HCL 06/24 Hx Tablets 1gm 20tab One po bid 054.79 s for 10 Varn, N.P. - days 10/17 Fluconazole 02/23 Hx Tablets 150mg 4tabs one by mouth once Varn, N.P. - weekly for 06/24 6 Lotrisone 02/03 Hx Cream 1-0.05% 45gm apply to affected Varn, N.P. - areas bid 02/23 Doxycycline 02/02 Hx Capsules 100mg 20cap 1 by mouth Aarti Hyclate s twice a Varn, N.P. - day 02/12 Bupropion HCL ER 12/31 Hx Tablets ER 150mg 30tab 1 by mouth 311 Aarti (XL) 24HR s every day Varn, N.P. - 06/24 Clotrimazole/Bet 12/31 Hx Cream 1-0.05% 15gm apply 2 - 110.2 amethasone 3 times Varn, N.P. Dipropionate - daily as 06/24 needed Nystatin 12/31 Hx Powder 1unit apply 696.8 s twice a Varn, N.P. - day until 06/24 clears Ondansetron HCL 04/19 Hx Tablets 4mg 30tab one by 787.02 s mouth Varn, N.P. - every 8 08/12 hours needed for nausea Doxycycline 04/15 Hx Capsules 100mg 28cap bid po Lauryn Hyclate s Beatriz Khalil M.D., FACP 12/31 Cephalexin 04/12 Hx Tablets 500mg 30tab one three 682.3 s times Varn, N.P. - daily for 12/31 Paroxetine HCL 06/15 Hx Tablets 20mg 1 po qd 311 Varn, N.P. - 06/15 Ultram 03/04 Hx Tablets 50mg 40tab sig 1 po 717.3 Lion s q8h Beatriz Gustafson.Soha 06/24 Atorvastatin 02/26 Hx Tablets 20mg 30tab take 1 272.4 Julianna Calcium s tablet at Hossein, - bedtime M.D. 06/15 Losartan 02/26 Hx Tablets 100-25mg 30tab take 1 I10 Aarti Potassium/Hydroc s tablet by Varn, N.P. hlorothiazide - mouth once 07/16 Paroxetine HCL 01/07 Hx Tablets 10mg 90tab 1 po qd 311 Julianna /2012 s Beatriz Catalan.Soha 06/15 Freestyle Lite 06/14 Hx 100un two times Lauryn Lanc its daily or Simran - as needed Adeline, FACP 08/05 Freestyle Lite 06/14 Hx 100un use as Julianna Test Strip its directed Cotton, - two times M.D. 08/05 daily or as needed dx:pcos/ig t Doxycycline 06/[address] 100mg 10cap one by 250.02 Lauryn Hyclate Part s mouth Simran, - twice M.D., FACP 01/07 daily for 5 days Metformin HCL ER 06/10 Hx Tablets ER 500mg 180ta 2 po with 250.02 24HR bs dinner Simran, - M.D., FACP 06/15 Proctofoam HC 05/21 Hx Foam 1-1% 1unit apply bid s for 10 Simran, - days [facility]., [facility] 06/24 Anamantle HC 10/30 Hx Kit 3-1% 1kit 1 Julianna applicator Cotton, - per rectum M.D. 05/21 daily for 10 days Metoprolol 10/24 Hx Tablets ER 50mg 30tab take 1 Lauryn Succinate ER 24HR s tablet by Simran, - mouth once M.D., FACP 06/15 Metoprolol 10/24 Hx Tablets ER 50mg 90tab take 1 Lauryn Succinate ER 24HR s tablet by Simran, - mouth once [facility].D., [facility] 12/31 Anamantle HC 09/19 Hx Kit 3-0.5% 20uni apply Julianna ts twice Cotton, - daily for M.D. 09/29 Ketoconazole 08/09 Hx Cream 2% 60gm apply once daily to Varn, N.P. - affected 12/31 Keflex 07/24 Hx Capsules 500mg 21cap one by Lauryn s mouth 3 Simran, - times M.D., [facility] 07/31 daily for 7 days Diovan HCT 07/17 Hx Tablets 320-25mg 90tab 1 tablet s once daily Simran, - M.D., [facility] 02/26 Fiorinal 05/23 Hx Capsules 50-325-40 30cap one to two Julianna mg s po every 4 Cotton, - to 6 hours M.D. 12/31 prn /2013 headache Bactroban 05/09 Hx Cream 2% 30gm apply bid fr 7 days Beatriz Khalil MHenrietta, FACP 07/02 Cardizem [place] Hx Tablets ER 300mg 1 tablet Lauryn /0000 24HR daily Simran, - M.D., FACP 07/17 Toprol XL Hx Tablets ER 50mg 30tab 1 tablet Lauryn /0000 24HR s daily SimranBeatriz omer MRegisDRegsi, FACP 10/24 Detrol LA Hx Caps ER 4mg 90cap 1 capsule Lauryn / 24HR s daily Simran, - M.DRegis, FACP 12/31 Naprosyn Hx Tablets 500mg 28tab one twice Lauryn /0000 s a day with Simran - food M.DRegis, FACP 06/15 Paroxetine HCL Hx Tablets 40mg 90tab take 1 Lauryn /0000 s tablet Simran, - daily M.D., FACP 06/24 Vitamin E 00 Hx Capsules 400Unit 1 by mouth Unknown Complex /0000 once daily - 02/26 Flaxseed Oil 0000 Hx Capsules 1000mg 1 po qd Unknown /0000 - 06/19 Glucosamine 0000 Hx Capsules 1500Com 1 po qd Unknown Chondroitin 1500 /0000 Complex - 12/31 Clindamycin HCL 0000 Hx Capsules 300mg Take one Unknown /0000 by mouth - four times 01/19 a /2014 Immunizations CPT Code Status Date Vaccine Lot # [id number] Given 07/16/2016 Influenza Virus Vaccine, Quadrivalent, Split [id number] Virus, [place] [address] Given 04/23/2016 Tetanus And Diptheria (Td) For Adult Use [id number] Preservative Free 26052 Given 06/19/2015 Influenza Virus Vaccine, Quadrivalent, Split, [id number] Preservative Free 15855 Given 03/17/2013 Zoster (Zostavax) [id number] Q2038 Given 06/15/2012 Fluzone Vaccine [id number] 47691 Given 06/15/2012 Pneumonia Vaccine [id number] 07761 Given 07/06/2007 Tdap - Tetanus/Diptheria/Acellular Pertussis 93955 Given 07/06/2007 Tdap - Tetanus/Diptheria/Acellular Pertussis 90580 Given 07/06/2007 Influenza Virus 3Yrs & Over Vital Signs Date Vital Result Comment 09/28/2018 9:48am Height 65 inches 5'5" Weight 321.00 lb BP Systolic Sitting 128 mmHg lg BP Diastolic Sitting 88 mmHg lg Body Temperature 99.0 F BMI (Body Mass Index) 53.4 kg/m2 09/11/2018 10:02am Height 65 inches 5'5" Weight 321.00 lb BP Systolic Sitting 132 mmHg BP Diastolic Sitting 88 mmHg Pain Level 4 BMI (Body Mass Index) 53.4 kg/m2 08/17/2018 11:38am Height 65 inches 5'5" Weight 321.00 lb Heart Rate 94 /min BP Systolic 126 mmHg BP Diastolic 85 mmHg Body Temperature 97.1 F O2 % BldC Oximetry 95 % BMI (Body Mass Index) 53.4 kg/m2 08/17/2018 8:59am Height 65 inches 5'5" BP Systolic Sitting 124 mmHg lg cuff BP Diastolic Sitting 86 mmHg lg cuff Pain Level 10 07/30/2018 7:37am Height 65 inches 5'5" Weight 324.00 lb w/ shoes Heart Rate 92 /min BP Systolic Sitting 126 mmHg BP Diastolic Sitting 80 mmHg BMI (Body Mass Index) 53.9 kg/m2 07/28/2018 1:53pm Height 65 inches 5'5" Weight 324.00 lb Heart Rate 89 /min BP Systolic 134 mmHg BP Diastolic 80 mmHg Body Temperature 97.2 F O2 % BldC Oximetry 97 % BMI (Body Mass Index) 53.9 kg/m2 07/15/2018 11:45am Height 65 inches 5'5" Weight 322.00 lb Heart Rate 87 /min BP Systolic 119 mmHg BP Diastolic 83 mmHg O2 % BldC Oximetry 97 % BMI (Body Mass Index) 53.6 kg/m2 06/02/2018 10:04am Height 65 inches 5'5" Weight 320.00 lb Heart Rate 123 /min BP Systolic Sitting 132 mmHg BP Diastolic Sitting 80 mmHg Body Temperature 98.3 F O2 % BldC Oximetry 95 % BMI (Body Mass Index) 53.2 kg/m2 12/25/2017 8:38am Weight 325.00 lb Heart Rate 89 /min BP Systolic 138 mmHg BP Diastolic 90 mmHg Body Temperature 98.1 F O2 % BldC Oximetry 97 % 08/25/2017 10:46am Weight 317.25 lb Heart Rate 104 /min BP Systolic 120 mmHg BP Diastolic 80 mmHg Body Temperature 97.3 F O2 % BldC Oximetry 97 % 06/20/2017 12:25pm Weight 313.75 lb Heart Rate 97 /min BP Systolic 130 mmHg BP Diastolic 88 mmHg Body Temperature 97.8 F O2 % BldC Oximetry 97 % 04/28/2017 10:24am Height 66.5 inches 5'6.50" Weight 313.75 lb Heart Rate 104 /min BP Systolic 130 mmHg BP Diastolic 84 mmHg Body Temperature 97.9 F O2 % BldC Oximetry 97 % BMI (Body Mass Index) 49.9 kg/m2 02/28/2017 9:20am Weight 323.00 lb Heart Rate 102 /min BP Systolic 120 mmHg BP Diastolic 80 mmHg Body Temperature 99.4 F O2 % BldC Oximetry 98 % 10/03/2016 10:35am Height 65.25 inches 5'5.25" Weight 332.00 lb Heart Rate 87 /min BP Systolic 120 mmHg BP Diastolic 72 mmHg Body Temperature 98.0 F O2 % BldC Oximetry 98 % BMI (Body Mass Index) 54.8 kg/m2 09/10/2016 11:12am Weight 331.00 lb with shoes Heart Rate 108 /min BP Systolic Sitting 116 mmHg BP Diastolic Sitting 78 mmHg O2 % BldC Oximetry 97 % 07/16/2016 11:43am Weight 331.00 lb Heart Rate 90 /min BP Systolic Sitting 130 mmHg BP Diastolic Sitting 82 mmHg Respiratory Rate 15 /min Body Temperature 98.3 F O2 % BldC Oximetry 98 % 04/23/2016 10:28am Height 65.25 inches 5'5.25" Weight 323.00 lb Heart Rate 91 /min BP Systolic Sitting 120 mmHg BP Diastolic Sitting 78 mmHg Body Temperature 98.1 F O2 % BldC Oximetry 98 % BMI (Body Mass Index) 53.3 kg/m2 03/28/2016 9:31am Weight 329.00 lb Heart Rate 77 /min BP Systolic Sitting 142 mmHg BP Diastolic Sitting 87 mmHg Body Temperature 98.5 F O2 % BldC Oximetry 98 % 08/22/2015 10:03am Height 66 inches 5'6" Weight 322.75 lb Heart Rate 98 /min BP Systolic Sitting 118 mmHg BP Diastolic Sitting 68 mmHg Body Temperature 97.5 F O2 % BldC Oximetry 95 % BMI (Body Mass Index) 52.1 kg/m2 06/19/2015 9:00am Height 66 inches 5'6" Weight 327.00 lb Heart Rate 92 /min BP Systolic 109 mmHg BP Diastolic 68 mmHg Body Temperature 98.0 F BMI (Body Mass Index) 52.8 kg/m2 06/05/2015 8:55am Weight 328.00 lb Heart Rate 94 /min BP Systolic Sitting 117 mmHg BP Diastolic Sitting 79 mmHg Body Temperature 98.1 F 05/10/2015 9:40am Height 66 inches 5'6" Weight 328.00 lb Heart Rate 100 /min BP Systolic 150 mmHg BP Diastolic 92 mmHg Body Temperature 99.0 F BMI (Body Mass Index) 52.9 kg/m2 01/19/2015 11:22am Height 66 inches 5'6" Weight 339.00 lb Heart Rate 84 /min BP Systolic 160 mmHg BP Diastolic 90 mmHg Body Temperature 98.2 F BMI (Body Mass Index) 54.7 kg/m2 10/17/2014 10:38am Height 66 inches 5'6" Weight 352.00 lb Heart Rate 81 /min BP Systolic 164 mmHg BP Diastolic 94 mmHg Body Temperature 98.5 F BMI (Body Mass Index) 56.8 kg/m2 07/11/2014 9:39am Weight 348.00 lb Heart Rate 94 /min BP Systolic Sitting 156 mmHg no am bp meds BP Diastolic Sitting 94 mmHg no am bp meds Body Temperature 97.1 F 06/24/2014 9:46am Height 66.25 inches 5'6.25" Weight 348.00 lb Heart Rate 82 /min BP Systolic Sitting 130 mmHg BP Diastolic Sitting 80 mmHg Body Temperature 98.4 F BMI (Body Mass Index) 55.7 kg/m2 12/31/2013 1:41pm Height 66.25 inches 5'6.25" Weight 353.50 lb Heart Rate 96 /min BP Systolic 146 mmHg hasnt taken her meds BP Diastolic 96 mmHg hasnt taken her meds Respiratory Rate 18 /min Body Temperature 98.5 F BMI (Body Mass Index) 56.6 kg/m2 04/19/2013 8:47am Weight 353.00 lb Heart Rate 78 /min irregular BP Systolic Sitting 110 mmHg lg BP Diastolic Sitting 80 mmHg lg Body Temperature 2.0 F 04/12/2013 4:02pm Weight 356.00 lb Heart Rate 104 /min BP Systolic Sitting 122 mmHg lg BP Diastolic Sitting 98 mmHg lg Body Temperature 98.0 F 03/17/2013 10:48am Weight 352.00 lb Heart Rate 78 /min BP Systolic Sitting 128 mmHg BP Diastolic Sitting 86 mmHg 06/15/2012 2:48pm Height 66 inches 5'6" Weight 360.50 lb Heart Rate 80 /min BP Systolic Sitting 122 mmHg BP Diastolic Sitting 84 mmHg BMI (Body Mass Index) 58.2 kg/m2 02/27/2012 9:55am Height 66 inches 5'6" Weight 356.00 lb Heart Rate 80 /min BP Systolic Sitting 112 mmHg BP Diastolic Sitting 64 mmHg BMI (Body Mass Index) 57.5 kg/m2 02/26/2012 1:08pm Height 66 inches 5'6" Weight 340.00 lb BMI (Body Mass Index) 54.9 kg/m2 01/08/2012 9:43am Height 66.5 inches 5'6.50" Weight 351.75 lb Heart Rate 72 /min BP Systolic Sitting 114 mmHg BP Diastolic Sitting 80 mmHg BMI (Body Mass Index) 55.9 kg/m2 06/10/2011 10:18am Height 66.5 inches 5'6.50" Weight 346.00 lb Heart Rate 82 /min BP Systolic Sitting 120 mmHg BP Diastolic Sitting 84 mmHg BMI (Body Mass Index) 55.0 kg/m2 05/22/2011 10:18am Height 66.5 inches 5'6.50" Weight 357.00 lb Heart Rate 84 /min BP Systolic 142 mmHg BP Diastolic 90 mmHg BMI (Body Mass Index) 56.8 kg/m2 08/09/2010 10:02am Weight 352.75 lb Heart Rate 78 /min BP Systolic 122 mmHg lg cuff BP Diastolic 80 mmHg lg cuff 07/24/2010 11:09am Weight 348.00 lb Heart Rate 80 /min BP Systolic 104 mmHg large cuff BP Diastolic 70 mmHg large cuff Results Test Date Facility Test Result H/L Range Note Laboratory test 09/17/2018 [facility] Point of Care 317 mg/dL High 70-100 [address] [place] [address] [phone] Laboratory test 09/17/2018 [facility] Point of Care 385 mg/dL High 70-100 [address] [place] [address] [phone] CBC No Diff 08/20/2018 [facility] White Blood 8.2 10^3/uL N 3.5-10.[address] [place] [address] [phone] Red Blood Count 4.68 10^6/uL N 4.00-5.40 Hemoglobin 14.6 g/dL N 12.0-16.0 Hematocrit 43 % N 35-47 Mean Corpuscular Volume 92 fL N 80-97 Mean Corpuscular Hemoglobin 31 pg N 27-31 Mean Corpuscular HGB Conc 34 g/dL N 31-36 Red Cell Distribution Width 13 % N 10.5-15 Platelet Count 167 10^3/uL N 150-450 Mean Platelet Volume 9.7 fL N 7.4-10.4 Basic Metabolic 08/20/2018 [facility] Sodium 133 mmol/L Low 135-[address] [place] [address] [phone] Potassium 3.9 mmol/L N 3.5-5.0 Chloride 95 mmol/L Low 101-111 Co2 Carbon Dioxide 28 mmol/L N 22-32 Anion Gap 10 mmol/L N 2-11 Glucose 410 mg/dL High 70-100 Blood Urea Nitrogen 21 mg/dL N 6-24 Creatinine 0.84 mg/dL N 0.51-0.95 BUN/Creatinine Ratio 25.0 High 8-20 Calcium 9.3 mg/dL N 8.6-10.3 Egfr Non- 69.9 >60 Egfr 84.6 >60 3 CBC Auto Diff 08/18/2018 [facility] White Blood 6.4 10^3/uL N 3.5-10.[address] [place] [address] [phone] Red Blood Count 4.56 10^6/uL N 4.00-5.40 Hemoglobin 14.2 g/dL N 12.0-16.0 Hematocrit 41 % N 35-47 Mean Corpuscular Volume 91 fL N 80-97 Mean Corpuscular Hemoglobin 31 pg N 27-31 Mean Corpuscular HGB Conc 35 g/dL N 31-36 Red Cell Distribution Width 13 % N 10.5-15 Platelet Count 163 10^3/uL N 150-450 Mean Platelet Volume 9.9 fL N 7.4-10.4 Abs Neutrophils 3.6 10^3/uL N 1.5-7.7 Abs Lymphocytes 2.3 10^3/uL N 1.0-4.8 Abs Monocytes 0.3 10^3/uL N 0-0.8 Abs Eosinophils 0.1 10^3/uL N 0-0.6 Abs Basophils 0.1 10^3/uL N 0-0.2 Abs Nucleated RBC 0 10^3/uL Granulocyte % 56.8 % Lymphocyte % 35.8 % Monocyte % 4.8 % Eosinophil % 1.8 % Basophil % 0.8 % Nucleated Red Blood Cells % 0.1 Urinalysis Profile 08/18/2018 [facility] Urine Color Yellow [address] [place] [address] [phone] Urine Appearance Cloudy Urine Specific [place] 1.036 High 1.010-1.030 Urine pH 5.0 N 5-9 Urine Urobilinogen Negative Negative Urine Ketones Trace Abnormal Negative Urine Protein 2+(100 mg/dL) Abnormal Negative Urine Leukocytes Negative Negative Urine Blood Negative Negative Urine Nitrite Negative Negative Urine Bilirubin Negative Negative Urine Glucose 3+(>=500 mg/dL) Abnormal Negative Urine White Blood Cell Trace(0-5/hpf) Absent Urine Red Blood Cell Trace(0-2/hpf) Absent Urine Bacteria Absent Absent Urine Squamous Epithelial Cell Present Abnormal Absent Urine Culture And 08/18/2018 [facility] Urine Culture SEE RESULT [address] [place] [address] [phone] Comp Metabolic 07/30/2018 [facility] Sodium 141 mmol/L N 135- [address] [place] [address] [phone] Potassium 4.0 mmol/L N 3.5-5.0 Chloride 100 mmol/L Low 101-111 Co2 Carbon Dioxide 30 mmol/L N 22-32 Anion Gap 11 mmol/L N 2-11 Glucose 215 mg/dL High 70-100 Blood Urea Nitrogen 21 mg/dL N 6-24 Creatinine 0.80 mg/dL N 0.51-0.95 BUN/Creatinine Ratio 26.3 High 8-20 Calcium 9.6 mg/dL N 8.6-10.3 Total Protein 7.1 g/dL N 6.4-8.9 Albumin 4.2 g/dL N 3.2-5.2 Globulin 2.9 g/dL N 2-4 Albumin/Globulin Ratio 1.4 N 1-3 Total Bilirubin 0.50 mg/dL N 0.2-1.0 Alkaline Phosphatase 56 U/L N 34-104 Alt 21 U/L N 7-52 Ast 20 U/L N 13-39 Egfr Non- 73.9 >60 Egfr 89.5 >60 5 Laboratory test 07/30/2018 [facility] Cortisol 7.53 g/dL [address] [place] [address] [phone] Insulin-Like 07/30/2018 [facility] Insulin like 58 ng/mL 37- 208 Growth Factor [address] [place] [address] I [phone] Igf1 Z-score -1.28 SD 7 Laboratory test 07/30/2018 [facility] Vitamin D 23.7 ng/mL N 20-[address] Total 25(Oh) [place] [address] [phone] TSH (Thyroid Stim Horm) 2.68 mcIU/mL N 0.34-5.60 Fructosamine 289 mcmol/L Abnormal 200 - 285 8 Laboratory test finding 07/30/2018 [facility] Hemoglobin A1c 7.4 High 5 -7 Glucose Random 246 Laboratory test 05/18/2018 [facility] Hemoglobin A1c 9.3 % High 4.0-5.6 [address] (Glyco HGB) [place] [address] [phone] Comp Metabolic 05/18/2018 [facility] Sodium 137 N 135-[address] mmol/[place] [address] [phone] Potassium 4.1 mmol/L N 3.5-5.0 Chloride 100 mmol/L Low 101-111 Co2 Carbon Dioxide 29 mmol/L N 22-32 Anion Gap 8 mmol/L N 2-11 Glucose 228 mg/dL High 70-100 Blood Urea Nitrogen 18 mg/dL N 6-24 Creatinine 0.74 mg/dL N 0.51-0.95 BUN/Creatinine Ratio 24.3 High 8-20 Calcium 8.9 mg/dL N 8.6-10.3 Total Protein 6.6 g/dL N 6.4-8.9 Albumin 3.9 g/dL N 3.2-5.2 Globulin 2.7 g/dL N 2-4 Albumin/Globulin Ratio 1.4 N 1-3 Total Bilirubin 0.70 mg/dL N 0.2-1.0 Alkaline Phosphatase 57 U/L N 34-104 Alt 24 U/L N 7-52 Ast 23 U/L N 13-39 Egfr Non- 80.9 >60 Egfr 97.9 >60 10 Lipid Profile 05/18/2018 [facility] Triglycerides 144 mg/dL 11 (Trig/Chol/HDL) [address] [place] [address] [phone] Cholesterol 229 mg/dL 12 HDL Cholesterol 50.9 mg/dL 13 LDL Cholesterol 149 mg/dL 14 Laboratory test 05/18/2018 [facility] Vitamin D Total 16.0 Low 20-50 [address] 25(Oh) ng/[place] [address] [phone] Laboratory test 12/25/2017 [facility] Hemoglobin A1c 9.8 High 5-7 finding Laboratory test 08/25/2017 [facility] In House Hemoglobin A1c 8.8 High 5-7 finding Urine 08/25/2017 [facility] Ur Microalbumin 369.[address] (mg/L) mg/[place] [address] [phone] Urine Creatinine 125.20 mg/dL Urine Microalbumin/Creatinine 295.0 ug/mg High <31 Laboratory test 04/28/2017 [facility] Hemoglobin A1c 13.8 High 5-7 finding Laboratory test 02/28/2017 [facility] In House Hemoglobin A1c 12.4 High 5-7 finding Laboratory test 02/18/2017 [facility] TSH (Thyroid Stim 2.24 N 0.34-5.[address] Horm) mcIU/mL 0 [place] [address] [phone] Laboratory test 09/10/2016 [facility] Hemoglobin A1c 12.3 High 5-7 finding Urine Microalbumin 09/10/2016 [facility] Ur Microalbumin 57.9 mg /L N Random [address] (mg/L) [place] [address] [phone] Urine Creatinine 63.49 mg/dL N Urine Microalbumin/Creatinine 91.1 ug/mg High <31 Laboratory test 04/23/2016 [facility] Hemoglobin A1c 7.3 High 5-7 finding Laboratory test 04/11/2016 [facility] Hemoglobin A1c 7.4 % High Less than 16 finding 101 (Glyco HGB) 6.0 [place] [address] [phone] Comp Metabolic 04/11/2016 [facility] Sodium 135 N 133-[address] mmol/[place] [address] [phone] Potassium 4.0 mmol/L N 3.5-5.0 Chloride 100 mmol/L Low 101-111 Co2 Carbon Dioxide 27 mmol/L N 22-32 Anion Gap 8 mmol/L N 2-11 Glucose 140 mg/dL High 70-100 Blood Urea Nitrogen 17 mg/dL N 6-24 Creatinine 0.83 mg/dL N 0.51-0.95 BUN/Creatinine Ratio 20.5 High 8-20 Calcium 8.9 mg/dL N 8.6-10.3 Total Protein 6.7 g/dL N 6.4-8.9 Albumin 3.8 g/dL N 3.2-5.2 Globulin 2.9 g/dL N 2-4 Albumin/Globulin Ratio 1.3 N 1-3 Total Bilirubin 0.60 mg/dL N 0.2-1.0 Alkaline Phosphatase 52 U/L N 34-104 Alt 23 U/L N 7-52 Ast 24 U/L N 13-39 Egfr Non- 71.4 N >60 Egfr 91.8 N >60 17 Lipid Profile 04/11/2016 [facility] Triglycerides 162 mg/dL N 18 (Trig/Chol/HDL) [address] [place] [address] [phone] Cholesterol 209 mg/dL N 19 HDL Cholesterol 46.8 mg/dL N 20 LDL Cholesterol 130 mg/dL N 21 Laboratory test 04/11/2016 [facility] Anti Nuclear 0.2 U N 22 finding [address] [place] [address] [phone] C Reactive Protein 5.49 mg/L High < 5.00 23 Cyclic Citrullinated Pep Igg <15.6 U N 24 Erythrocyte Sed Rate 29 mm/Hr N 0-30 Lyme Disease Serology Negative N Negative 25 Rheumatoid Factor <15 IU/mL N <15 26 Laboratory test 06/19/2015 [facility] Hemoglobin A1c 10.0 High 5-7 finding Lipid Profile 05/26/2015 [facility] Triglycerides 151 mg/dL N 27 (Trig/Chol/HDL) [address] [place] [address] [phone] Cholesterol 208 mg/dL N 28 HDL Cholesterol 43.1 mg/dL N 29 LDL Cholesterol 135 mg/dL N 30 Comp Metabolic Panel 05/26/2015 [facility] Sodium 136 mmol/L N 133-[address] [place] [address] [phone] Potassium 3.4 mmol/L Low 3.5-5.0 Chloride 98 mmol/L Low 101-111 Co2 Carbon Dioxide 29 mmol/L N 22-32 Anion Gap 9 mmol/L N 2-11 Glucose 219 mg/dL High 70-100 Blood Urea Nitrogen 17 mg/dL N 6-24 Creatinine 0.76 mg/dL N 0.51-0.95 BUN/Creatinine Ratio 22.4 High 8-20 Calcium 9.0 mg/dL N 8.6-10.3 Total Protein 6.7 g/dL N 6.4-8.9 Albumin 3.7 g/dL N 3.2-5.2 Globulin 3.0 g/dL N 2-4 Albumin/Globulin Ratio 1.2 N 1-3 Total Bilirubin 0.80 mg/dL N 0.2-1.0 Alkaline Phosphatase 60 U/L N 34-104 Alt 23 U/L N 7-52 Ast 25 U/L N 13-39 Egfr Non- 79.3 N >60 Egfr 102.0 N >60 31 Urine Microalbumin 05/10/2015 [facility] Urine Creatinine 63.89 mg/dL N Random [address] [place] [address] [phone] Ur Microalbumin (mg/L) 2004.9 mg/L N Urine Microalbumin/Creatinine 3138.0 ug/mg High <31 Laboratory test 05/10/2015 [facility] Urine Culture And SEE RESULT [address] [place] [address] [phone] Cytology Non-Visor Installer SEE RESULT BELOW 33 Ua Routine 05/10/2015 [facility] Ua Specific [place] 1.005 Ua PH 8 Ua Color reddish tinge Ua Appera cloudy Ua WBC trace Ua Protein 2000+++ Ua Glucose 2000+++ Ua Ketones trace Ua Bilirubin trace Ua Urobilinogen normal Ua Nitrite negative Ua Occult Blood large++++ Cytology Non-Visor Installer 01/23/2015 [facility] Sandrine RUN DATE: [address] <[place] [address] NOTE> [phone] Laboratory test 01/19/2015 [facility] Hemoglobin A1c 9.6 High 5-7 finding Laboratory test 10/17/2014 [facility] Hemoglobin A1c 8.0 High 5-7 finding Laboratory test 03/17/2013 [facility] Hemoglobin A1c 5.9 5-7 finding Lipid Profile 03/10/2013 [facility] Triglycerides 154 mg/dL 40-20 (Trig/Chol/HDL) [address] [place] [address] [phone] Cholesterol 199 mg/dL Less than 200 HDL Cholesterol 44 mg/dL 40-60 35 Cholesterol/HDL Ratio 4.5 Average High 1-4.44 LDL Cholesterol 124.2 High Less Than 100 36 Liver Function 03/10/2013 [facility] Total Protein 6.5 g/dL 6.2-8.[address] [place] [address] [phone] Albumin 3.6 g/dL 3.6-5.4 Globulin 2.9 g/dL 2-4 Albumin/Globulin Ratio 1.2 1-3 Total Bilirubin 0.8 mg/dL 0.4-1.5 Direct Bilirubin 0.1 mg/dL 0.1-0.5 Indirect Bilirubin 0.7 mg/dL 0.3-1.0 Alkaline Phosphatase 63 U/L 30-110 Alt 25 U/L 14-54 Ast 28 U/L 12-42 Laboratory test 01/10/2012 [facility] TSH 2.26 MIU/ML 0.34- 5.[address] [place] [address] [phone] Comp Metabolic 01/10/2012 [facility] Sodium 138 mmol/L 135- [address] [place] [address] [phone] Potassium 4.4 mmol/L 3.5-5.0 Chloride 102 mmol/L 101-111 Co2 (Carbon Dioxide) 31.0 mmol/L 22-32 Anion Gap 5.0 mmol/L 2-11 37 Glucose 97 mg/dL 70-100 BUN 19 mg/dL 6-24 Creatinine 0.8 mg/dL 0.50-1.40 One Over Creatinine 1.25 BUN/Creatinine Ratio 23.8 High 8-20 Calcium 8.8 mg/dL 8.1-9.9 Total Protein 6.7 GM/DL 6.2-8.1 Albumin 3.6 GM/DL 3.6-5.4 Globulin 3.1 GM/DL 2-4 Albumin/Globulin Ratio 1.2 1-3 Bilirubin Total 0.8 mg/dL 0.4-1.5 38 Alkaline Phosphatase 60 U/L 30-110 Alt (SGPT) 32 U/L 14-54 Ast (Sgot) 33 U/L 12-42 eGFR Non- 75.6 > 60 eGFR 97.3 > 60 39 Lipid Profile 01/10/2012 [facility] Triglyceride 136 mg/dL 40 -200 (Trig/Chol/HDL) [address] [place] [address] [phone] Cholesterol 257 mg/dL High Less Than 200 40 High Density Lipoprotein 50 mg/dL 40-60 41 Cholesterol/HDL Ratio 5.14 AVERAGE High 1-4.44 Low Density Lipoprotein 180 mg/dL High Less Than 100 42 Laboratory test 01/10/2012 [facility] Hemoglobin A1c 6.5 % High Less Than [address] 6.0 [place] [address] [phone] 1 Lei Maker: [id number] 2 Lei Maker: [id number] 3 Because ethnic data is not always readily available, this report includes an eGFR for both -Americans and non- Americans. The National Kidney Disease Education Program (NKDEP) does not endorse the use of the MDRD equation for patients that are not between the ages of 18 and 70, are , have extremes of body size, muscle mass, or nutritional status, or are non- or non-. According to the National Kidney Foundation, irrespective of diagnosis, the stage of the disease is based on the level of kidney function: Stage Description GFR(mL/min/1.73 m(2)) 1 Kidney damage with normal or decreased GFR 90 2 Kidney damage with mild decrease in GFR 60-89 3 Moderate decrease in GFR 30-59 4 Severe decrease in GFR 15-29 5 Kidney failure <15 (or dialysis) 4 SEE RESULT BELOW Name: VANESSA LYNNTROY Canseco : [address]: Aarti Almazan NP Acct: [id number] Unit: [id number] AGE: 57 Location: [facility] Re08/18/18 SEX: F Status: REG REF SPEC: [id number] BRAN: 08/18/[address]: Aarti Almazan NP REQ: [id number] RECD: 08/18/18 STATUS: COMP _ SOURCE: URINE SPDESC: ORDERED: Urine Culture Procedure Result Reported Site Urine Culture Final 08/19/18- 1433 ML No Growth (<1,000 CFU/mL) * ML - Main Lab . END OF REPORT DEPARTMENT OF PATHOLOGY, [address] [place] [address] Kan Martinez M.D. Director [facility] # [id number] 5 Because ethnic data is not always readily available, this report includes an eGFR for both -Americans and non- Americans. The National Kidney Disease Education Program (NKDEP) does not endorse the use of the MDRD equation for patients that are not between the ages of 18 and 70, are , have extremes of body size, muscle mass, or nutritional status, or are non- or non-. According to the National Kidney Foundation, irrespective of diagnosis, the stage of the disease is based on the level of kidney function: Stage Description GFR(mL/min/1.73 m(2)) 1 Kidney damage with normal or decreased GFR 90 2 Kidney damage with mild decrease in GFR 60-89 3 Moderate decrease in GFR 30-59 4 Severe decrease in GFR 15-29 5 Kidney failure <15 (or dialysis) 6 AM 8.7-22.4 PM <10 7 REFERENCE VALUE -2.0 - +2.0 ADDITIONAL INFORMATION This test was developed and its performance characteristics determined by [facility] in a manner consistent with CLIA requirements. This test has not been cleared or approved by the U.S. Food and Drug Administration. Test Performed by: [facility] [address] [place] [address] 8 Test Performed by: [facility] [address] [place] [address] 9 Therapeutic target for the treatment of diabetes mellitus patients is <7% HBA1C, and in selective patients <6.0%. Please refer to [place] [employer] Association diabetic care guidelines for further information. 10 Because ethnic data is not always readily available, this report includes an eGFR for both -Americans and non- Americans. The National Kidney Disease Education Program (NKDEP) does not endorse the use of the MDRD equation for patients that are not between the ages of 18 and 70, are , have extremes of body size, muscle mass, or nutritional status, or are non- or non-. According to the National Kidney Foundation, irrespective of diagnosis, the stage of the disease is based on the level of kidney function: Stage Description GFR(mL/min/1.73 m(2)) 1 Kidney damage with normal or decreased GFR 90 2 Kidney damage with mild decrease in GFR 60-89 3 Moderate decrease in GFR 30-59 4 Severe decrease in GFR 15-29 5 Kidney failure <15 (or dialysis) 11 Desirable: <150 Borderline High: 150-199 High: 200-499 Very High: >500 12 Desirable: <200 Borderline High: 200-239 High: >239 13 Low: <40 Desirable: 40-60 High: >60 14 Desirable: <100 Near Optimal: 100-129 Borderline High: 130-159 High: 160-189 Very High: >189 15 FASTING 10 HOUR 16 Therapeutic target for the treatment of diabetes Mellitus patients is <7% HBA1C, and in selective patients <6.0%.Please refer to [place] [employer] Diabetic care guidelines for further information. 17 Because ethnic data is not always readily available, this report includes an eGFR for both -Americans and non- Americans. The National Kidney Disease Education Program (NKDEP) does not endorse the use of the MDRD equation for patients that are not between the ages of 18 and 70, are , have extremes of body size, muscle mass, or nutritional status, or are non- or non-. According to the National Kidney Foundation, irrespective of diagnosis, the stage of the disease is based on the level of kidney function: Stage Description GFR(mL/min/1.73 m(2)) 1 Kidney damage with normal or decreased GFR 90 2 Kidney damage with mild decrease in GFR 60-89 3 Moderate decrease in GFR 30-59 4 Severe decrease in GFR 15-29 5 Kidney failure <15 (or dialysis) 18 Desirable <150 Borderline high 150-199 High 200-499 Very High >500 19 Desirable <200 Borderline high 200-239 High >239 20 Low <40 Desirable: 40-60 High: >60 21 Desirable: <100 mg/dL Near Optimal: 100-129 mg/dL Borderline High: 130-159 mg/dL High: 160-189 mg/dL Very High: >189 mg/dL 22 REFERENCE VALUE <=1.0 (Negative) Test Performed by: [place] [address] Speech Language Specialist: Ben Harman II, M.D., Ph.D. 23 Acute inflammation: >10.00 24 REFERENCE VALUE <20.0 (Negative) Test Performed by: [place] [address] Speech Language Specialist: Ben Harman II, M.D., Ph.D. 25 Serologic response to B. burgdorferi infection is not detected, but cannot rule out early infection during which low or undetectable antibody levels to B. burgdorferi may be present. If clinically indicated, a new serum specimen should be submitted in 7-14 days. Test Performed by: [place] [address] Speech Language Specialist: Ben Harman II, M.D., Ph.D. 26 Test Performed by: [address] [place] [address] Speech Language Specialist: Ben Harman II, M.D., Ph.D. 27 Desirable <150 Borderline high 150-199 High 200-499 Very High >500 28 Desirable <200 Borderline high 200-239 High >239 29 Low <40 Desirable: 40-60 High: >60 30 Desirable: <100 mg/dL Near Optimal: 100-129 mg/dL Borderline High: 130-159 mg/dL High: 160-189 mg/dL Very High: >189 mg/dL 31 Because ethnic data is not always readily available, this report includes an eGFR for both -Americans and non- Americans. The National Kidney Disease Education Program (NKDEP) does not endorse the use of the MDRD equation for patients that are not between the ages of 18 and 70, are , have extremes of body size, muscle mass, or nutritional status, or are non- or non-. According to the National Kidney Foundation, irrespective of diagnosis, the stage of the disease is based on the level of kidney function: Stage Description GFR(mL/min/1.73 m(2)) 1 Kidney damage with normal or decreased GFR 90 2 Kidney damage with mild decrease in GFR 60-89 3 Moderate decrease in GFR 30-59 4 Severe decrease in GFR 15-29 5 Kidney failure <15 (or dialysis) 32 SEE RESULT BELOW Name: AYANA LYNN : [address]: Hubert Real COLLEGE PRESIDENT Acct: [id number] Unit: [id number] AGE: 54 Location: [facility] Re05/10/15 SEX: F Status: REG REF SPEC: [id number] BRAN: 05/10/15-1009 [facility] DR: Hubert Real NP REQ: [id number] RECD: 05/10/15 STATUS: COMP _ SOURCE: URINE SPDESC: ORDERED: Urine Culture Procedure Result Verified Site Urine Culture Final 05/12/15- 928 ML Organism 1 ESCHERICHIA COLI [place] Count >100,000 (Many) CFU/ML 1. ESCHERICHIA COLI M.I.C. RX --------- ------ Ampicillin <=2 S Cefazolin <=4 S Cefepime <=1 S Ceftriaxone <=1 S Ciprofloxacin <=0.25 S Gentamicin <=1 S Levofloxacin <=0.12 S Meropenem <=0.25 S Nitrofurantoin <=16 S Tetracycline <=1 S Pipercillin/Tazobactam <=4 S Trimethoprim/Sulfamethoxazole <=20 S Amoxicillin/Clavulanic Acid <=2 S Aztreonam <=1 S Contact the Microbiology Department for any additional antibiotic reporting. * ML - MAIN LAB ([facility]) . END OF REPORT * ML=Testing performed at Main Lab DEPARTMENT OF PATHOLOGY, [address] [place] [address] Kan Martinez M.D. Director [facility] # [id number] 33 SEE RESULT BELOW Name: AYANA LYNN : [address]: Hubert Real NP Acct: [id number] Unit: [id number] AGE: 54 Location: [facility] Re05/10/15 SEX: F Status: REG REF SPEC: [id number] BRAN: 05/10/15-[address]: Hubert Real COLLEGE PRESIDENT REQ: [id number] RECD: 05/10/15 STATUS: SOUT _ ORDERED: THIN PREP NON G FINAL DIAGNOSIS Urine: Inflammatory cells. Negative for malignant cells. URINE CLINICAL HISTORY hematuria GROSS DESCRIPTION 6 ml clear light pink fluid. Signed (signature on file) Nilam Keith MD 1506 END OF REPORT * ML=Testing performed at Main Lab DEPARTMENT OF PATHOLOGY, [facility] [address] [employer] [place], [place] [address] Kan Martinez M.D. Director [facility] # [id number] 34 RUN DATE: 01/24/15 [facility] LAB LIVE PAGE 1 RUN TIME: 1504 [facility] [address] [employer] [place], [place] [address] Specimen Inquiry Name: AYANA LYNN : [address]: Mei Bashir MD Acct: [id number] Unit: [id number] AGE: 54 Location: [facility] Re01/23/15 SEX: F Status: REG REF SPEC: [id number] BRAN: 01/23/15-1100 [facility] DR: Mei Bashir MD REQ: [id number] RECD: 01/23/15-9756 STATUS: JENNIE WASHINGTON DR: Aarti Almazan COLLEGE PRESIDENT _ ORDERED: FN ASP SUPERFIC FINAL DIAGNOSIS Breast, left, fine needle aspiration: -- Abscess. COMMENT: Clinical and radiologic correlation are recommended with repeat sampling if the lesion does not resolve with appropriate therapy. BREAST LEFT - LEFT BREAST FINE NEEDLE ASPIRATION CLINICAL HISTORY Left breast abnormal lump GROSS DESCRIPTION 2 Alcohol fixed slide(s) received from clinician and Needle rinse in CytoLyt solution for thin layer non-perforator loader test.(pink) Signed (signature on file) Nilam Keith MD 02/03 1504 END OF REPORT * ML=Testing performed at Main Lab DEPARTMENT OF PATHOLOGY, [address] [place] [address] Kan Martinez M.D. Director [facility] # [id number] 35 HDL Interpretation: Undesirable: High Risk: Less than 40 mg/dL Desirable: Low Risk: Greater than 60 mg/dL 36 LDL Interpretation: Low Risk Optimal Level: LDL Less than 100 mg/dL Near or Above Optimal: LDL 100-129 mg/dL Borderline High Risk: LDL 130-159 mg/dL High Risk: LDL 160-189 mg/dL Very High Risk: LDL Greater than 189 mg/dL 37 Anion gap measurement may be of limited value in the presence of any alkalosis, especially in a combined acid base disorder. . 38 A metabolite of Naproxen, O-desmethylnaproxen, has been shown to interfere with the Jendrassik-Robert method for measuring total bilirubin. Samples from patients who have taken Naproxen have shown spurious elevation in total bilirubin levels. 39 Because ethnic data is not always readily available, this report includes an eGFR for both -Americans and non- Americans. The National Kidney Disease Education Program (NKDEP) does not endorse the use of the MDRD equation for patients that are not between the ages of 18 and 70, are , have extremes of body size, muscle mass, or nutritional status, or are non- or non-. According to the National Kidney Foundation, irrespective of diagnosis, the stage of the disease is based on the level of kidney function: Stage Description GFR(mL/min/1.73 m(2)) 1 Kidney damage with normal or decreased GFR 90 2 Kidney damage with mild decrease in GFR 60-89 3 Moderate decrease in GFR 30-59 4 Severe decrease in GFR 15-29 5 Kidney failure <15 (or dialysis) 40 CHOLESTEROL INTERPRETATION: Desirable: Less than 200 MG/DL Borderline-High Risk: 200-239 MG/DL High-Risk: 240 MG/DL and over 41 HDL INTERPRETATION: Undesirable: High Risk: Less than 40 MG/DL Desirable: Low Risk: Greater than 60 MG/DL 42 LDL INTERPRETATION: Low Risk Optimal Level: LDL Less than 100 MG/DL Near or Above Optimal: LDL 100-129 MG/DL Borderline High Risk: LDL 130-159 MG/DL High Risk: LDL 160-189 MG/DL Very High Risk: LDL Greater than 189 MG/DL 43 THERAPEUTIC TARGET FOR THE TREATMENT OF DIABETES MELLITUS PATIENTS IS <7% HBA1C, AND IN SELECTIVE PATIENTS <6.0%. PLEASE REFER TO [place] [employer] DIABETIC CARE GUIDELINES FOR FURTHER INFORMATION. Procedures Date Code Description Status 09/17/2018 06548 [place]/Facet/Foraminotomy;Vertebral Segment; Lumbar Completed 08/20/2018 47247 Treadmill Interp/Report Only Completed 08/20/2018 49048 Stress Test Supervsn W/Out I/R Completed 08/17/2018 80306 EKG Tracing & Interpretation Completed 01/20/2018 [id number] Diabetic Retinal Eye Exam Completed 01/16/2018 [id number] Mammogram Completed 09/05/2014 [id number] Mammogram Completed 04/01/2014 [id number] Diabetic Retinal Eye Exam Completed 09/08/2013 [id number] Mammogram Completed 03/06/2012 [id number] Diabetic Retinal Eye Exam Completed 02/26/2012 30298 Rad Exam; Knee Comp Completed 02/26/2012 65063 Rad Exam; Knee Comp Completed 02/26/2012 22891 Rad Exam; Knee Comp Completed 08/28/2011 [id number] Colonoscopy Completed 07/31/2011 [id number] Mammogram Completed 07/18/2010 67196 Holter Monitor Review (24 hr)dr pedro & kobe only Completed 04/14/2009 [id number] Mammogram Completed 01/18/2008 15961 EKG Tracing & Interpretation Completed 07/14/2007 [id number] Bone Mineral Density Test Completed 07/06/2007 61117 EKG Tracing & Interpretation Completed Encounters Type Date Location Provider Dx Diagnosis Office Visit 09/11/2018 Neurosurgery Zenia Nunes, M48.062 Spinal stenosis, 10:15a [facility] CL lumbar region with neurogenic claudication Office Visit 08/17/2018 [facility] Nallely Almazan, Z01.818 Encounter for other 11:20a Medicine - N.P. preprocedural [place] examination E11.65 Type 2 diabetes mellitus with hyperglycemia Z79.84 alf (current) use of oral hypoglycemic drugs Z87.891 Personal history of nicotine dependence I10 Essential (primary) hypertension M48.062 Spinal stenosis, lumbar region with neurogenic claudication R94.31 Abnormal electrocardiogram [ECG] [EKG] Office Visit 08/17/2018 Neurosurgery Neville Carmichael, M48.062 Spinal stenosis, 9:20a [facility] lumbar region with neurogenic claudication M54.5 Low back pain Office Visit 07/30/2018 [facility] Shafer Coch, Z79.84 alf 8:00a Endocrinology of (current) use of [facility] oral hypoglycemic drugs E11.65 Type 2 diabetes mellitus with hyperglycemia F34.9 Persistent mood [affective] disorder, unspecified E78.5 Hyperlipidemia, unspecified E55.9 Vitamin D deficiency, unspecified 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 lumbosacral region [place] Office Visit 07/15/2018 [facility] Almazan M54.5 Low back pain 11:40a Medicine - N.P. [place] Office Visit 06/02/2018 [facility] Internal Aarti Almazan, E11.65 Type 2 diabetes 10:20a Medicine - N.P. mellitus with [place] hyperglycemia I10 Essential (primary) hypertension E55.9 Vitamin D deficiency, unspecified B35.3 Tinea pedis Office Visit 12/25/2017 8:40a [facility] Internal Aarti Almazan, R53.83 Other fatigue Medicine - N.P. [place] E11.65 Type 2 diabetes mellitus with hyperglycemia Office Visit 08/25/2017 10:20a [facility] Internal Aarti Almazan, E11.65 Type 2 diabetes Medicine - N.P. mellitus with [place] hyperglycemia I10 Essential (primary) hypertension Office Visit 06/20/2017 11:40a [facility] Internal Aarti Almazan, L08.9 Local infection of Medicine - N.P. the skin and [place] subcutaneous tissue, unsp E11.65 Type 2 diabetes mellitus with hyperglycemia Office Visit 04/28/2017 10:40a [facility] Internal Aarti Almazan, Z00.00 Encntr for Medicine - N.P. general adult [place] medical exam w/o abnormal findings Z12.31 Encntr screen mammogram for malignant neoplasm of breast E11.65 Type 2 diabetes mellitus with hyperglycemia I10 Essential (primary) hypertension F32.9 Major depressive disorder, single episode, unspecified M54.5 Low back pain Z00.01 Encounter for general adult medical exam w abnormal findings Office Visit 02/28/2017 9:40a [facility] Internal Aarti Almazan, E11.65 Type 2 diabetes Medicine - N.P. mellitus with [place] hyperglycemia I10 Essential (primary) hypertension Office Visit 10/03/2016 10:40a [facility] Internal Aarti Almazan, E11.65 Type 2 diabetes Medicine - N.P. mellitus with [place] hyperglycemia N95.1 Menopausal and female climacteric states Office Visit 09/10/2016 [facility] Internal Aarti Almazan E11.65 Type 2 diabetes 11:40a Medicine - N.P. mellitus with [place] hyperglycemia Office Visit 07/16/2016 [facility] Internal Aarti Almazan, L03.116 Cellulitis of left 11:40a Medicine - N.P. lower limb [place] Z23 Encounter for immunization Z79.84 alf (current) use of oral hypoglycemic drugs E11.65 Type 2 diabetes mellitus with hyperglycemia Office Visit 04/23/2016 10:40a [facility] Internal Aarti Almazan, Z00.01 Encounter for Medicine - N.P. general adult [place] medical exam w abnormal findings E11.65 Type 2 diabetes mellitus with hyperglycemia I10 Essential (primary) hypertension L30.4 Erythema intertrigo G89.4 Chronic pain syndrome Z23 Encounter for immunization Office Visit 03/28/2016 9:20a [facility] Internal Aarti Almazan, L08.9 Local infection of Medicine - N.P. the skin and [place] subcutaneous tissue, unsp M25.50 Pain in unspecified joint L03.111 Cellulitis of right axilla Office Visit 08/22/2015 10:00a [facility] Internal Aarti Almazan, E11.65 Type 2 diabetes Medicine - N.P. mellitus with [place] hyperglycemia E78.2 Mixed hyperlipidemia Office Visit 06/19/2015 9:00a [facility] Internal Aarti Almazan, E11.65 Type 2 diabetes Medicine - N.P. mellitus with [place] hyperglycemia E78.2 Mixed hyperlipidemia L08.9 Local infection of the skin and subcutaneous tissue, unsp V04.81 Need For Prophylactic Vaccination & Inoculation/Influenza Z23 Encounter for immunization N61 Inflammatory disorders of breast Office Visit 06/05/2015 9:00a [facility] Internal Aarti Almazan, 401.1 Hypertension Medicine - N.P. Benign [place] 250.02 Diabetes Mellitus W/O Compl Type II Or Unspec Type Uncontrol 327.52 Sleep Related Leg Cramps Office Visit 05/10/2015 9:40a [facility] Internal Hubert Real, 599.70 Hematuria, Medicine - COLLEGE PRESIDENT Unspecified [place] V77.91 Screening For Lipoid Disorders 599.0 UTI Urinary Tract Infection Site Not Spec 465.9 URI Upper Respiratory Infections Acute Unspec Sites 791.0 Proteinuria Office Visit 01/19/2015 11:20a [facility] Internal Aarti Almazan, 250.00 Diabetes Mellitus Medicine - N.P. W/O Compl Type II [place] Or Unspec Controlled 686.9 Local Infection Of Skin And Subcutaneous Tissue Unspec 401.1 Hypertension Benign 611.0 Inflammatory Disease Breast Office Visit 10/17/2014 10:20a [facility] Internal Aarti Almazan, 401.1 Hypertension Medicine - N.P. 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 Other [place] Office Visit 12/31/2013 1:40p [facility] Internal Aarti Almazan, V70.0 Examination Medicine - N.P. [facility] Routine AT Health Care Facility V76.10 Screening For Malignant Neoplasm Breast 401.1 Hypertension Benign 250.00 Diabetes Mellitus W/O Compl Type II Or Unspec Controlled 311 Depressive Disorder Not Elsewhere Spec 278.01 Obesity Morbid 272.4 Hyperlipidemia Other Unspec 268.9 Vitamin D Deficiency Unspec 110.2 Dermatophytosis Hand 696.8 Psoriasis Other 389.9 Hearing Loss Unspec Office Visit 04/19/2013 8:40a [facility] Internal Aarti Almazan, 682.3 Cellulitis & Medicine - N.P. Abscess Upper Arm [place] & Forearm 787.02 Nausea Alone Office Visit 04/12/2013 4:00p [facility] Internal Aarti Almazan, 682.3 Cellulitis & Medicine - N.P. Abscess Upper Arm [place] & Forearm Office Visit 03/17/2013 10:40a [facility] Internal Aarti Almazan, 250.02 Diabetes Mellitus Medicine - N.P. W/O Compl Type II [place] Or Unspec Type Uncontrol 401.1 Hypertension Benign 112.3 Candidiasis Skin & Nails V04.89 Need For Prophylactic Vaccination & Inoculation Other Virus Office Visit 06/15/2012 3:00p [facility] Internal Aarti Almazan, V70.0 Examination Medicine - N.P. [facility] Routine AT Health Care Facility V72.31 Routine Visor Installer Examination V76.10 Screening For Malignant Neoplasm Breast 250.02 Diabetes Mellitus W/O Compl Type II Or Unspec Type Uncontrol 401.1 Hypertension Benign 278.01 Obesity Morbid V04.81 Need For Prophylactic Vaccination & Inoculation/Influenza 715.00 Osteoarthrosis Generalized Site Unspec V03.82 Streptococcus Pneumoniae Vaccination Spec Other Office Visit 03/04/2012 11:15a [employer] Lion Scruggs, 717.3 Derangement Medial of Yong Lr Meniscus Other & Unspec Office Visit 02/27/2012 9:40a [facility] Internal Aarti Varn, 401.1 Hypertension Medicine - N.P. 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 Benign [place] 250.02 Diabetes Mellitus W/O Compl Type II Or Unspec Type Uncontrol 311 Depressive Disorder Not Elsewhere Spec 844.9 Sprains & Strains Knee & Leg Unspec Office Visit 06/10/2011 DO Not Use Aarti Varn, 250.02 Diabetes Mellitus 10:00a [employer] N.P. W/O Compl Type II Or Unspec Type Uncontrol Office Visit 05/22/2011 DO Not Use Aarti Varn, V70.0 Examination 10:00a [employer] N.P. General Medical Routine AT Health Care Facility 401.1 Hypertension Benign 272.4 Hyperlipidemia Other Unspec 327.52 Sleep Related Leg Cramps Office Visit 08/09/2010 DO Not Use Aarti 110.3 Dermatophytosis 10:00a [employer] Varn, N.P. Groin & Perianal Area Office Visit 07/24/2010 DO Not Use Aarti 680.6 Carbuncle & Furuncle 11:00a [employer] Varn, N.P. Leg Except Foot 782.3 Edema Office Visit 05/23/2010 DO Not Use Aarti Varn, 346.90 Migraine Unspec 2:30p [employer] N.P. W/O Intractable W/O Status Migrainosus Office Visit 05/09/2010 DO Not Use Aarti Varn, 780.2 Syncope & 11:30a [employer] N.P. Collapse Office Visit 04/25/2010 DO Not Use Aarti Varn, 791.7 Cells & Casts In 11:15a [employer] N.P. Urine Other 682.3 Cellulitis & Abscess Upper Arm & Forearm Office Visit 03/21/2010 DO Not Use Aarti Varn, 401.1 Hypertension 1:30p [employer] N.P. Benign Office Visit 01/31/2010 DO Not Use Aarti Varn, 354.0 Carpal Tunnel 3:15p [employer] N.P. Syndrome 401.1 Hypertension Benign 278.01 Obesity Morbid Office Visit 12/13/2009 10:00a DO Not Use Aarti Varn, 354.0 Carpal Tunnel [employer] N.P. Syndrome Office Visit 07/21/2009 11:00a DO Not Use Aarti Varn, 268.9 Vitamin D [employer] N.P. Deficiency Unspec 466.0 Bronchitis Acute 519.11 Acute Bronchospasm Office Visit 07/06/2009 9:30a DO Not Use Aarti Varn, 719.40 Pain Joint [employer] N.P. Site Unspec 780.79 Malaise And Fatigue Other Office Visit 02/22/2009 DO Not Use Aarti Varn, 455.3 Hemorrhoids 10:00a [employer] N.P. External W/O Complication Office Visit 01/03/2009 DO Not Use Aarti Varn, V70.0 Examination 1:45p [employer] N.P. General Medical Routine AT Health Care Facility 401.1 Hypertension Benign Office Visit 06/09/2008 DO Not Use Aarti Varn, 455.3 Hemorrhoids 10:30a [employer] N.P. External W/O Complication Office Visit 02/16/2008 DO Not Use Aarti Varn, 354.0 Carpal Tunnel 8:45a [employer] N.P. Syndrome Office Visit 02/03/2008 DO Not Use Aarti Varn, 786.50 Pain Chest Unspec 9:45a [employer] N.P. 401.1 Hypertension Benign Office Visit 01/18/2008 10:15a DO Not Use Aarti Varn, 786.50 Pain Chest [employer] N.P. Unspec 401.1 Hypertension Benign Office Visit 12/21/2007 DO Not Use Aarti Varn, 401.1 Hypertension 10:15a [employer] N.P. Benign Office Visit 11/30/2007 DO Not Use Aarti Varn, 401.1 Hypertension 10:15a [employer] N.P. Benign 311 Depressive Disorder Not Elsewhere Spec Office Visit 11/13/2007 10:00a DO Not Use Aarti Varn, 682.6 Cellulitis & [facility]-[place] N.P. Abscess Leg Except Foot 401.1 Hypertension Benign 311 Depressive Disorder Not Elsewhere Spec Office Visit 10/12/2007 DO Not Use Aarti Varn, 311 Depressive 9:30a [facility]-[place] N.P. Disorder Not Elsewhere Spec Office Visit 07/06/2007 DO Not Use Aarti Varn, V72.31 Routine Visor Installer 9:30a [facility]-[place] N.P. Examination 401.1 Hypertension Benign 596.51 Hypertonicity Bladder V04.81 Need For Prophylactic Vaccination & Inoculation/Influenza V06.1 Dbhxpucxai-Aexgemj-Unvnpinp Combined (DTaP) Plan of Treatment Future Appointment(s):10/19/2018 1:00 pm - Zenia Nunes PA-C at [facility]11/03/2018 8:00 am - Hollis Kong MD at [facility]12/02/2018 9:20 am - Aarti Almazan, N.P. at [facility] Internal Medicine - Gppuykzxv36/26/2018 - Aarti Almazan, N.P.Z01.818 Encounter for other preprocedural examinationComments:I am ordering some routine preoperative lab work. The office will contact you with your results.You may take all of your usual medications the morning of your surgery, unless your surgeon tells you otherwise. Please stop taking Aspirin, or Aspirin like products for 1 week prior to your surgery.E11.65 Type 2 diabetes mellitus with cmhnwznzlohpwP23.84 alf (current) use of oral hypoglycemic cvfufL11.891 Personal history of nicotine xboadrypzjN55 Essential (primary) barykrqvgukoQ48.062 Spinal stenosis, lumbar region with neurogenic rwryfpwxqwfrQ15.31 Abnormal electrocardiogram [ECG ] [EKG]Comments:To further evaluate your EKG I have ordered a nuclear stress test.
--- OUTSIDE RECORDS SUMMARY | 2018-10-04 18:41 | XMS REPORT | Continuity of Care Document ---
:1960 External Reference #:[id number] Author Name Tyjimmy Fidelia Care Team Providers Name Role Phone Julianna Catalan MD Primary Care Physician Unavailable Payers Type Date Identification Numbers Payment Provider Subscriber Policy Number: [id number] Medicare Ayana Canseco Shane PayID: [id number] [address] [place] [address] Effective: 2011 Policy Number: [id number] Medicare Ayana Lynn Expires: 2018 PayID: [id number] [address] [place] [address] Effective: 2008 Policy Number: [id number] [facility] Ppo Julian Lynn Expires: 2011 Group Number: [id number] [address] [address] PayID: [id number] SAM Haskins [id number] Expires: 2016 PayID: [id number] Medicare D - Drug Plan Ayana Lynn Effective: 2015 Policy Number: 70% [facility] Ayana Lynn Expires: 2017 PayID: [id number] [address] Advance Directives Type Date Description Status Comment Other Directive 01/02/2016 Health Care Proxy Current and Verified Problems Date Description Provider Status Onset: 08/22/2010 Morbid obesity Lauryn Khalil M.D., FACP Active Onset: 10/20/2011 Type II diabetes mellitus Julianna Catalan M.D. Active uncontrolled Onset: 08/22/2010 Benign essential hypertension Lauryn Khalil M.D., FACRuben Active Onset: 08/22/2010 Depressive disorder Lauryn Khalil M.D., [facility] Active Family History Date Family Member(s) Problem(s) [...] Use Denies Drug Use Smoking Status Reviewed: 09/11/18 Patient is a former Quit 10 years [...] Kit W/Device 1unit To test E11.65 Aarti Leonidas s fasting q Varn, N.P. am and [...] 6 Vitamin D3 Ultra 05/18 Hx Tablets [id number] 8tabs one by Aarti mouth once Varn, [...] one 599.0 Hubert HCL s tablet Farhan, CLINICAL PARTNER - twice a 05/20 day for days Bactrim DS 01/19 Hx Tablets 800-160mg 20tab one by 686.9 s mouth Varn, N.P. - twice a 01/29 day for days Neomycin/Polymyx 07/11 Hx Suspension 3.5-28214 10ml 4 drops 380.22 Hubert in/Dexamethasone -0.1 each ear Farhan, CLINICAL PARTNER - four times 10/17 a day 7 days Promethazine-DM 07/11 Hx Syrup 6.25-15mg 473ml take 5ml 461.8 Hubert /2014 /5ML every 4-6 Farhan, CLINICAL PARTNER - hours as 10/17 needed cough. Levofloxacin 07/11 Hx Tablets 500mg 10tab one by 461.8 Hubert s mouth Farhan, CLINICAL PARTNER - daily for 10/17 Valacyclovir HCL 06/24 [...] s for 10 Simran, - days [facility] 06/24 [facility] 10/30 Hx Kit 3-1% [...] tablet by Simran, - mouth once M.D., [facility] 12/31 [facility] 09/19 Hx Kit 3-0.5% 20uni apply Julianna ts twice Cotton, - daily for M.D. 09/29 Ketoconazole 08/09 Hx Cream 2% 60gm apply once daily to Varn, N.P. - affected 12/31 Keflex 07/24 Hx Capsules 500mg 21cap one by Lauryn s mouth 3 Simran, - times M.D., [facility] 07/31 daily for 7 days Diovan HCT 07/17 Hx Tablets 320-25mg 90tab 1 tablet s once daily Simran, - M.D., [facility] 02/26 Fiorinal 05/23 Hx Capsules 50-325-40 30cap [...] Lauryn /0000 24HR s daily SimranBeatriz omer MRegisDRegis, FACP 10/24 Detrol [place] Hx Caps ER [...] CPT Code Status Date Vaccine Lot # [id number] Given 07/16/2016 Influenza Virus Vaccine, Quadrivalent, Split [id number] Virus, [place] Use [address] Given 04/23/2016 Tetanus And Diptheria (Td) For Adult Use [id number] Preservative Free 62952 Given 06/19/2015 Influenza Virus Vaccine, Quadrivalent, Split, [id number] Preservative Free 45245 Given 03/17/2013 Zoster (Zostavax) [id number] Given 06/15/2012 Fluzone Vaccine [id number] 68041 Given 06/15/2012 Pneumonia Vaccine [id number] 34172 Given 07/06/2007 Tdap - Tetanus/Diptheria/Acellular Pertussis 51581 Given 07/06/2007 Tdap - Tetanus/Diptheria/Acellular Pertussis 05951 Given 07/06/2007 Influenza Virus 3Yrs & Over Vital Signs Date Vital Result Comment 09/11/2018 10:02am Height 65 inches 5'5" Weight [...] Date Facility Test Result H/L Range Note CBC No Diff 08/20/2018 [facility] White Blood 8.2 10^3/uL N 3.5-10.[address] [place] [address] [phone] Red Blood Count 4.68 10^6/uL N 4.00-5.40 Hemoglobin 14.6 g/dL N 12.0-16.0 Hematocrit 43 % N 35-47 Mean Corpuscular Volume 92 fL N 80-97 Mean Corpuscular Hemoglobin 31 pg N 27-31 Mean Corpuscular HGB Conc 34 g/dL N 31-36 Red Cell Distribution Width 13 % N 10.5-15 Platelet Count 167 10^3/uL N 150-450 Mean Platelet Volume 9.7 fL N 7.4-10.4 Basic Metabolic 08/20/2018 [facility] Sodium 133 mmol/L Low 135-[address] [place] [address] [phone] Potassium 3.9 mmol/L N 3.5-5.0 Chloride 95 mmol/L Low 101-111 Co2 Carbon Dioxide 28 mmol/L N 22-32 Anion Gap 10 mmol/L N 2-11 Glucose 410 mg/dL High 70-100 Blood Urea Nitrogen 21 mg/dL N 6-24 Creatinine 0.84 mg/dL N 0.51-0.95 BUN/Creatinine Ratio 25.0 High 8-20 Calcium 9.3 mg/dL N 8.6-10.3 Egfr Non- 69.9 >60 Egfr 84.6 >60 1 CBC Auto Diff 08/18/2018 [facility] White Blood 6.4 10^3/uL N 3.5-10.[address] [place] [address] [phone] Red Blood Count 4.56 10^6/uL N 4.00-5.40 [...] Blood Cells % 0.1 Urinalysis Profile 08/18/2018 [facility] Urine Color Yellow [address] [place] [address] [phone] Urine Appearance Cloudy Urine Specific Miller 1.036 High 1.010-1.030 Urine pH 5.0 N [...] Present Abnormal Absent Urine Culture And 08/18/2018 [facility] Urine Culture SEE RESULT [address] [place] [address] [phone] Laboratory test 07/30/2018 [facility] Vitamin D 23.7 ng/mL N 20-50 finding 101 Total 25(Oh) [place] [address] [phone] TSH (Thyroid Stim Horm) 2.68 mcIU/mL N 0.34-5.60 Fructosamine 289 mcmol/L Abnormal 200 - 285 3 Laboratory test finding 07/30/2018 [facility] Hemoglobin A1c 7.4 High 5 -7 Glucose Random 246 Insulin-Like Growth 07/30/2018 [facility] Insulin like 58 ng/mL 37-208 Factor 1 [address] [facility] [place] [address] I [phone] Igf1 Z-score -1.28 SD 4 Laboratory test 07/30/2018 [facility] Cortisol 7.53 g/dL 5 finding 101 [place] [address] [phone] Comp Metabolic 07/30/2018 [facility] Sodium 141 mmol/L N 135- 145 Panel 101 [place] [address] [phone] Potassium 4.0 mmol/L N 3.5-5.0 Chloride 100 [...] Egfr Non- 73.9 >60 Egfr 89.5 >60 6 Laboratory test 05/18/2018 [facility] Hemoglobin A1c 9.3 % High 4.0-5.6 [address] (Glyco HGB) [place] [address] [phone] Comp Metabolic 05/18/2018 [facility] Sodium 137 N 135-[address] mmol/[place] [address] [phone] Potassium 4.1 mmol/L N 3.5-5.0 Chloride 100 [...] Egfr Non- 80.9 >60 Egfr 97.9 >60 8 Lipid Profile 05/18/2018 [facility] Triglycerides 144 mg/dL 9 (Trig/Chol/HDL) [address] [place] [address] [phone] Cholesterol 229 mg/dL 10 HDL Cholesterol 50.9 mg/dL 11 LDL Cholesterol 149 mg/dL 12 Laboratory test 05/18/2018 [facility] Vitamin D Total 16.0 Low 20-50 [address] 25(Oh) ng/mL [place], [place] [id number] [phone] Laboratory test 12/25/2017 [facility] Hemoglobin A1c 9.8 High 5-7 finding Urine 08/25/2017 [facility] Ur Microalbumin 369.[address] (mg/L) mg/[place] [address] [phone] Urine Creatinine 125.20 mg/dL Urine Microalbumin/Creatinine 295.0 ug/mg High <31 Laboratory test 08/25/2017 [facility] Hemoglobin A1c 8.8 High 5-7 finding Laboratory test 04/28/2017 [facility] Hemoglobin A1c 13.8 High 5-7 finding Laboratory test 02/28/2017 [facility] Hemoglobin A1c 12.4 High 5-7 finding Laboratory test 02/18/2017 [facility] TSH (Thyroid Stim 2.24 N 0.34-5.[address] Horm) mcIU/[place] [address] [phone] Urine Microalbumin 09/10/2016 [facility] Ur Microalbumin 57.9 mg /L N Random [address] (mg/L) [place] [address] [phone] Urine Creatinine 63.49 mg/dL N Urine Microalbumin/Creatinine 91.1 ug/mg High <31 Laboratory test 09/10/2016 [facility] Hemoglobin A1c 12.3 High 5-7 finding Laboratory test 04/23/2016 [facility] Hemoglobin A1c 7.3 High 5-7 finding Laboratory test 04/11/2016 [facility] Anti Nuclear 0.2 U N [address] [place] [address] [phone] C Reactive Protein 5.49 mg/L High < 5.00 15 Cyclic Citrullinated Pep Igg <15.6 U N 16 Erythrocyte Sed Rate 29 mm/Hr N 0-30 Lyme Disease Serology Negative N Negative 17 Rheumatoid Factor <15 IU/mL N <15 18 Lipid Profile 04/11/2016 [facility] Triglycerides 162 mg/dL N 19 (Trig/Chol/HDL) [address] [place] [address] [phone] Cholesterol 209 mg/dL N 20 HDL Cholesterol 46.8 mg/dL N 21 LDL Cholesterol 130 mg/dL N 22 Laboratory test 04/11/2016 [facility] Hemoglobin A1c 7.4 % High Less than [address] (Glyco HGB) 6.0 [place] [address] [phone] Comp Metabolic 04/11/2016 [facility] Sodium 135 N 133-[address] mmol/[place] [address] [phone] Potassium 4.0 mmol/L N 3.5-5.0 Chloride 100 [...] 71.4 N >60 Egfr 91.8 N >60 24 Laboratory test 06/19/2015 [facility] In House Hemoglobin A1c 10.0 High 5-7 finding Lipid Profile 05/26/2015 [facility] Triglycerides 151 mg/dL N 25 (Trig/Chol/HDL) [address] [place] [address] [phone] Cholesterol 208 mg/dL N 26 HDL Cholesterol 43.1 mg/dL N 27 LDL Cholesterol 135 mg/dL N 28 Comp Metabolic Panel 05/26/2015 [facility] Sodium 136 mmol/L N 133-[address] [place] [address] [phone] Potassium 3.4 mmol/L Low 3.5-5.0 Chloride 98 [...] 79.3 N >60 Egfr 102.0 N >60 29 Ua Routine 05/10/2015 [facility] Ua Specific Miller 1.005 Ua PH 8 Ua Color reddish tinge Ua Appera cloudy Ua WBC trace Ua Protein 2000+++ Ua Glucose 2000+++ Ua Ketones trace Ua Bilirubin trace Ua Urobilinogen normal Ua Nitrite negative Ua Occult Blood large++++ Laboratory test 05/10/2015 [facility] Urine Culture And SEE RESULT [address] [place] [address] [phone] Cytology [employer] SEE RESULT BELOW 31 Urine Microalbumin 05/10/2015 [facility] Urine Creatinine 63.89 mg/dL N Random [address] [place] [address] [phone] Ur Microalbumin (mg/L) 2004.9 mg/L N Urine Microalbumin/Creatinine 3138.0 ug/mg High <31 Cytology [employer] 01/23/2015 [facility] Sandrine RUN DATE: [address] <[place] [address] NOTE> [phone] Laboratory test 01/19/2015 [facility] Hemoglobin A1c 9.6 High 5-7 finding Laboratory test 10/17/2014 [facility] Hemoglobin A1c 8.0 High 5-7 finding Laboratory test 03/17/2013 [facility] Hemoglobin A1c 5.9 5-7 finding Lipid Profile 03/10/2013 [facility] Triglycerides 154 mg/dL 40-20 (Trig/Chol/HDL) [address] 0 [place] [address] [phone] Cholesterol 199 mg/dL Less than 200 HDL Cholesterol 44 mg/dL 40-60 33 Cholesterol/HDL Ratio 4.5 Average High 1-4.44 LDL Cholesterol 124.2 High Less Than 100 34 Liver Function 03/10/2013 [facility] Total Protein 6.5 g/dL 6.2-8.1 Panel [address] [place] [address] [phone] Albumin 3.6 g/dL 3.6-5.4 Globulin 2.9 g/dL 2-4 Albumin/Globulin Ratio 1.2 1-3 Total Bilirubin 0.8 mg/dL 0.4-1.5 Direct Bilirubin 0.1 mg/dL 0.1-0.5 Indirect Bilirubin 0.7 mg/dL 0.3-1.0 Alkaline Phosphatase 63 U/L 30-110 Alt 25 U/L 14-54 Ast 28 U/L 12-42 Laboratory test 01/10/2012 [facility] TSH 2.26 MIU/ML 0.34- 5.60 finding [address] [place] [address] [phone] Comp Metabolic 01/10/2012 [facility] Sodium 138 mmol/L 135- 145 Panel [address] [place] [address] [phone] Potassium 4.4 mmol/L 3.5-5.0 Chloride 102 mmol/L 101-111 Co2 (Carbon Dioxide) 31.0 mmol/L 22-32 Anion Gap 5.0 mmol/L 2-11 35 Glucose 97 mg/dL 70-100 BUN 19 mg/dL 6-24 Creatinine 0.8 mg/dL 0.50-1.40 One Over Creatinine 1.25 BUN/Creatinine Ratio 23.8 High 8-20 Calcium 8.8 mg/dL 8.1-9.9 Total Protein 6.7 GM/DL 6.2-8.1 Albumin 3.6 GM/DL 3.6-5.4 Globulin 3.1 GM/DL 2-4 Albumin/Globulin Ratio 1.2 1-3 Bilirubin Total 0.8 mg/dL 0.4-1.5 36 Alkaline Phosphatase 60 U/L 30-110 Alt (SGPT) 32 U/L 14-54 Ast (Sgot) 33 U/L 12-42 eGFR Non- 75.6 > 60 eGFR 97.3 > 60 37 Lipid Profile 01/10/2012 [facility] Triglyceride 136 mg/dL 40 -200 (Trig/Chol/HDL) [address] [place] [address] [phone] Cholesterol 257 mg/dL High Less Than 200 38 High Density Lipoprotein 50 mg/dL 40-60 39 Cholesterol/HDL Ratio 5.14 AVERAGE High 1-4.44 Low Density Lipoprotein 180 mg/dL High Less Than 100 40 Laboratory test 01/10/2012 [facility] Hemoglobin A1c 6.5 % High Less Than [address] 6.0 [place] [address] [phone] 1 Because ethnic data is not always readily [...] 15-29 5 Kidney failure <15 (or dialysis) 2 SEE RESULT BELOW Name: AYANA LYNN : [address]: Aarti Almazan NP Acct: [id number] Unit: [id number] AGE: 57 Location: [facility]DR Re08/18/18 SEX: F Status: REG REF SPEC: [id number] BRAN: 08/18/[address]: Aarti Almazan NP REQ: [id number] RECD: 08/18/18 STATUS: COMP _ SOURCE: URINE SPDESC: ORDERED: Urine Culture Procedure Result Reported Site Urine Culture Final 08/19/18- 1433 ML No Growth (<1,000 CFU/mL) * ML - Main Lab . END OF REPORT DEPARTMENT OF PATHOLOGY, [address] [place] [address] Kan Martinez M.D. Director [facility] # [id number] 3 Test Performed by: [facility] [address] [place] [address] 4 REFERENCE VALUE -2.0 - +2.0 ADDITIONAL INFORMATION This test was developed and its performance characteristics determined by [facility] [place] in a manner consistent with CLIA requirements. This test has not been cleared or approved by the U.S. Food and Drug Administration. Test Performed by: [facility] [address] [place] [address] 5 AM 8.7-22.4 PM <10 6 Because ethnic data is not always readily [...] 15-29 5 Kidney failure <15 (or dialysis) 7 Therapeutic target for the treatment of diabetes mellitus patients is <7% HBA1C, and in selective patients <6.0%. Please refer to [employer] diabetic care guidelines for further information. 8 Because ethnic data is not always readily [...] 15-29 5 Kidney failure <15 (or dialysis) 9 Desirable: <150 Borderline High: 150-199 High: 200-499 Very High: >500 10 Desirable: <200 Borderline High: 200-239 High: >239 11 Low: <40 Desirable: 40-60 High: >60 12 Desirable: <100 Near Optimal: 100-129 Borderline High: 130-159 High: 160-189 Very High: >189 13 FASTING 10 HOUR 14 REFERENCE VALUE <=1.0 (Negative) Test Performed by: [place] [address] Needle Molder: Ben Harman II, M.D., Ph.D. 15 Acute inflammation: >10.00 16 REFERENCE VALUE <20.0 (Negative) Test Performed by: [place] [address] Needle Molder: Ben Harman II, M.D., Ph.D. 17 Serologic response to B. burgdorferi infection is not detected, but cannot rule out early infection during which low or undetectable antibody levels to B. burgdorferi may be present. If clinically indicated, a new serum specimen should be submitted in 7-14 days. Test Performed by: [place] [id number] Needle Molder: eBn Harman II, M.D., Ph.D. 18 Test Performed by: [facility] [address] [place] [address] Needle Molder: Ben Harman II, M.D., Ph.D. 19 Desirable <150 Borderline high 150-199 High 200-499 Very High >500 20 Desirable <200 Borderline high 200-239 High >239 21 Low <40 Desirable: 40-60 High: >60 22 Desirable: <100 mg/dL Near Optimal: 100-129 mg/dL Borderline High: 130-159 mg/dL High: 160-189 mg/dL Very High: >189 mg/dL 23 Therapeutic target for the treatment of diabetes Mellitus patients is <7% HBA1C, and in selective patients <6.0%.Please refer to [employer] Diabetic care guidelines for further information. 24 Because ethnic data is not always readily [...] 15-29 5 Kidney failure <15 (or dialysis) 25 Desirable <150 Borderline high 150-199 High 200-499 Very High >500 26 Desirable <200 Borderline high 200-239 High >239 27 Low <40 Desirable: 40-60 High: >60 28 Desirable: <100 mg/dL Near Optimal: 100-129 mg/dL Borderline High: 130-159 mg/dL High: 160-189 mg/dL Very High: >189 mg/dL 29 Because ethnic data is not always readily [...] 15-29 5 Kidney failure <15 (or dialysis) 30 SEE RESULT BELOW Name: AYANA LYNN : [address]: Hubert Real NP Acct: [id number] Unit: [id number] AGE: 54 Location: [facility] Re05/10/15 SEX: F Status: REG REF SPEC: [id number] BRAN: 05/10/15-[address]: Hubert Real NP REQ: [id number] RECD: 05/10/15 STATUS: COMP _ SOURCE: URINE SPDESC: ORDERED: Urine Culture Procedure Result Verified Site Urine Culture Final 05/12/15- 928 ML Organism 1 ESCHERICHIA COLI Pegram Count >100,000 (Many) CFU/ML 1. ESCHERICHIA COLI [...] antibiotic reporting. * ML - MAIN LAB ([facility]) . END OF REPORT * ML=Testing performed at Main Lab DEPARTMENT OF PATHOLOGY, [address] [place] [address] Kan Martinez M.D. Director [facility] # [id number] 31 SEE RESULT BELOW Name: AYANA LYNN : [address]: Hubert Real CLINICAL PARTNER Acct: [id number] Unit: [id number] AGE: 54 Location: [facility] Re05/10/15 SEX: F Status: REG REF SPEC: [id number] BRAN: 05/10/15-[address]: Hubert Real CLINICAL PARTNER REQ: [id number] RECD: 05/10/15 STATUS: SOUT _ ORDERED: THIN PREP NON G FINAL DIAGNOSIS Urine: Inflammatory cells. Negative for malignant cells. URINE CLINICAL HISTORY hematuria GROSS DESCRIPTION 6 ml clear light pink fluid. Signed (signature on file) Nilam Keith MD 1506 END OF REPORT * ML=Testing performed at Main Lab DEPARTMENT OF PATHOLOGY, [address] [place] [address] Kan Martinez M.D. Director [facility] # [id number] 32 RUN DATE: 01/24/15 [facility] LAB LIVE PAGE 1 RUN TIME: [address] [place] [address] Specimen Inquiry Name: AYANA LYNN : [address]: Mei Bashir MD Acct: [id number] Unit: [id number] AGE: 54 Location: [facility] Re01/23/15 SEX: F Status: REG REF SPEC: [id number] BRAN: 01/23/15-[address]: Mei Bashir MD REQ: [id number] RECD: 01/23/154036 STATUS: JENNIE W[place] DR: Aarti Almazan CLINICAL PARTNER _ ORDERED: FN ASP SUPERFIC FINAL DIAGNOSIS [...] rinse in CytoLyt solution for thin layer non-injection operator test.(pink) Signed (signature on file) Nilam Keith MD 02/03 1504 END OF REPORT * ML=Testing performed at Main Lab DEPARTMENT OF PATHOLOGY, [address] [place] [address] Kan Martinez M.D. Director [facility] # [id number] 33 HDL Interpretation: Undesirable: High Risk: Less than 40 mg/dL Desirable: Low Risk: Greater than 60 mg/dL 34 LDL Interpretation: Low Risk Optimal Level: LDL Less than 100 mg/dL Near or Above Optimal: LDL 100-129 mg/dL Borderline High Risk: LDL 130-159 mg/dL High Risk: LDL 160-189 mg/dL Very High Risk: LDL Greater than 189 mg/dL 35 Anion gap measurement may be of limited value in the presence of any alkalosis, especially in a combined acid base disorder. . 36 A metabolite of Naproxen, O-desmethylnaproxen, has been shown to interfere with the Jendrassik-Java method for measuring total bilirubin. Samples from patients who have taken Naproxen have shown spurious elevation in total bilirubin levels. 37 Because ethnic data is not always readily [...] 15-29 5 Kidney failure <15 (or dialysis) 38 CHOLESTEROL INTERPRETATION: Desirable: Less than 200 MG/DL Borderline-High Risk: 200-239 MG/DL High-Risk: 240 MG/DL and over 39 HDL INTERPRETATION: Undesirable: High Risk: Less than 40 MG/DL Desirable: Low Risk: Greater than 60 MG/DL 40 LDL INTERPRETATION: Low Risk Optimal Level: LDL Less than 100 MG/DL Near or Above Optimal: LDL 100-129 MG/DL Borderline High Risk: LDL 130-159 MG/DL High Risk: LDL 160-189 MG/DL Very High Risk: LDL Greater than 189 MG/DL 41 THERAPEUTIC TARGET FOR THE TREATMENT OF DIABETES MELLITUS PATIENTS IS <7% HBA1C, AND IN SELECTIVE PATIENTS <6.0%. PLEASE REFER TO [employer] [employer] DIABETIC CARE GUIDELINES FOR FURTHER INFORMATION. Procedures Date Code Description Status 08/20/2018 19176 Treadmill Interp/Report Only Completed 08/20/2018 01194 Stress Test Supervsn W/Out I/R Completed 08/17/2018 56043 EKG Tracing & Interpretation Completed 01/20/2018 [id number] Diabetic Retinal Eye Exam Completed 01/16/2018 [id number] Mammogram Completed 09/05/2014 [id number] Mammogram Completed 04/01/2014 [id number] Diabetic Retinal Eye Exam Completed 09/08/2013 [id number] Mammogram Completed 03/06/2012 [id number] Diabetic Retinal Eye Exam Completed 02/26/2012 83020 Rad Exam; Knee Comp Completed 02/26/2012 56765 Rad Exam; Knee Comp Completed 02/26/2012 36158 Rad Exam; Knee Comp Completed 08/28/2011 25191402 Colonoscopy Completed 07/31/2011 [id number] Mammogram Completed 07/18/2010 92400 Holter Monitor Review (24 hr)dr review & interp only Completed 04/14/2009 [id number] Mammogram Completed 01/18/2008 00327 EKG Tracing & Interpretation Completed 07/14/2007 [id number] Bone Mineral Density Test Completed 07/06/2007 43443 EKG Tracing & Interpretation Completed Encounters Type Date Location Provider Dx Diagnosis Office Visit 08/17/2018 [facility] Internal Aarti Almazan, Z01.818 Encounter for other 11:20a Medicine - N.P. 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 Z87.891 Personal history of nicotine dependence I10 Essential (primary) hypertension M48.062 Spinal stenosis, lumbar region with neurogenic claudication R94.31 Abnormal electrocardiogram [ECG] [EKG] Office Visit 08/17/2018 Neurosurgery Neville Carmichael, M48.062 Spinal stenosis, 9:20a [facility] Adeline lumbar region with neurogenic claudication M54.5 Low back pain Office Visit 07/30/2018 [facility], Z79.84 nursing home 8:00a Endocrinology of (current) use of [facility] oral hypoglycemic drugs E11.65 Type 2 diabetes mellitus with hyperglycemia F34.9 Persistent mood [affective] disorder, unspecified E78.5 Hyperlipidemia, unspecified E55.9 Vitamin D deficiency, unspecified 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 lumbosacral region [place] Office Visit 07/15/2018 [facility] Internal Aarti Almazan, M54.5 Low back pain 11:40a Medicine - N.P. [place] Office Visit 06/02/2018 [facility] Internal Aarti Almazan, E11.65 Type 2 diabetes 10:20a Medicine - N.P. mellitus with [place] hyperglycemia I10 Essential (primary) hypertension E55.9 Vitamin D deficiency, unspecified B35.3 Tinea pedis Office Visit 12/25/2017 8:40a [facility] Internal Aarti Almazan, R53.83 Other fatigue Medicine - N.P. [place] E11.65 Type 2 diabetes mellitus with hyperglycemia Office Visit 08/25/2017 10:20a [facility] Internal Aarti Almazan, E11.65 Type 2 diabetes Medicine - N.P. mellitus with [place] hyperglycemia I10 Essential (primary) hypertension Office Visit 06/20/2017 11:40a [facility] Internal Aarti Almazan, L08.9 Local infection of Medicine - N.P. the skin and [place] subcutaneous tissue, unsp E11.65 Type 2 diabetes mellitus with hyperglycemia Office Visit 04/28/2017 10:40a [facility] Internal Aarti Almazan, Z00.00 Encntr for Medicine - N.P. general adult [place] medical exam w/o abnormal findings Z12.31 Encntr screen mammogram for malignant neoplasm of breast E11.65 Type 2 diabetes mellitus with hyperglycemia I10 Essential (primary) hypertension F32.9 Major depressive disorder, single episode, unspecified M54.5 Low back pain Z00.01 Encounter for general adult medical exam w abnormal findings Office Visit 02/28/2017 9:40a [facility] Internal Aarti Almazan, E11.65 Type 2 diabetes Medicine - N.P. mellitus with [place] hyperglycemia I10 Essential (primary) hypertension Office Visit 10/03/2016 10:40a [facility] Internal Aarti Almazan E11.65 Type 2 diabetes Medicine - N.P. mellitus with [place] hyperglycemia N95.1 Menopausal and female climacteric states Office Visit 09/10/2016 [facility] Almazan, E11.65 Type 2 diabetes 11:40a Medicine - N.P. mellitus with [place] hyperglycemia Office Visit 07/16/2016 [facility] Internal Aarti Almazan, L03.116 Cellulitis of left 11:40a Medicine - N.P. lower limb [place] Z23 Encounter for immunization Z79.84 nursing home (current) use of oral hypoglycemic drugs E11.65 Type 2 diabetes mellitus with hyperglycemia Office Visit 04/23/2016 10:40a [facility] Internal Aarti Almazan, Z00.01 Encounter for Medicine - N.P. general adult [place] medical exam w abnormal findings E11.65 Type 2 diabetes mellitus with hyperglycemia I10 Essential (primary) hypertension L30.4 Erythema intertrigo G89.4 Chronic pain syndrome Z23 Encounter for immunization Office Visit 03/28/2016 9:20a [facility] Internal Aarti Almazan, L08.9 Local infection of Medicine - N.P. the skin and [place] subcutaneous tissue, unsp M25.50 Pain in unspecified joint L03.111 Cellulitis of right axilla Office Visit 08/22/2015 10:00a Yong Almazan, E11.65 Type 2 diabetes Medicine - N.P. mellitus with [place] hyperglycemia E78.2 Mixed hyperlipidemia Office Visit 06/19/2015 9:00a [facility] Internal Aarti Almazan, E11.65 Type 2 diabetes Medicine - N.P. mellitus with [place] hyperglycemia E78.2 Mixed hyperlipidemia L08.9 Local infection of the skin and subcutaneous tissue, unsp V04.81 Need For Prophylactic Vaccination & Inoculation/Influenza Z23 Encounter for immunization N61 Inflammatory disorders of breast Office Visit 06/05/2015 9:00a [facility] Internal Aarti Almazan, 401.1 Hypertension Medicine - N.P. Benign [place] 250.02 Diabetes Mellitus W/O Compl Type II Or Unspec Type Uncontrol 327.52 Sleep Related Leg Cramps Office Visit 05/10/2015 9:40a [facility] Internal Hubert Real, 599.70 Hematuria, Medicine - CLINICAL PARTNER Unspecified [place] V77.91 Screening For Lipoid Disorders 599.0 UTI Urinary Tract Infection Site Not Spec 465.9 URI Upper Respiratory Infections Acute Unspec Sites 791.0 Proteinuria Office Visit 01/19/2015 11:20a [facility] Internal Aarti Almazan, 250.00 Diabetes Mellitus Medicine - N.P. W/O Compl Type II [place] Or Unspec Controlled 686.9 Local Infection Of Skin And Subcutaneous Tissue Unspec 401.1 Hypertension Benign 611.0 Inflammatory Disease Breast Office Visit 10/17/2014 10:20a [facility] Internal Aarti Almazan, 401.1 Hypertension Medicine - N.P. Benign [place] 250.00 Diabetes Mellitus W/O Compl Type II Or Unspec Controlled Office Visit 07/11/2014 9:30a [facility] Internal Hubert Real, 461.8 Sinusitis Acute Medicine - CLINICAL PARTNER Other [place] 380.22 Otitis Externa Other Acute Office Visit 06/24/2014 9:40a [facility] Internal Aarti Almazan, 054.79 Herpes Simplex Medicine - N.P. Other [place] Office Visit 12/31/2013 1:40p [facility] Internal Aarti Almazan, V70.0 Examination Medicine - N.P. General Medical [place] Routine AT Health Care Facility V76.10 Screening For Malignant Neoplasm Breast 401.1 Hypertension Benign 250.00 Diabetes Mellitus W/O Compl Type II Or Unspec Controlled 311 Depressive Disorder Not Elsewhere Spec 278.01 Obesity Morbid 272.4 Hyperlipidemia Other Unspec 268.9 Vitamin D Deficiency Unspec 110.2 Dermatophytosis Hand 696.8 Psoriasis Other 389.9 Hearing Loss Unspec Office Visit 04/19/2013 8:40a [facility] Internal Aarti Almazan, 682.3 Cellulitis & Medicine - N.P. Abscess Upper Arm [place] & Forearm 787.02 Nausea Alone Office Visit 04/12/2013 4:00p [facility] Internal Aarti Almazan, 682.3 Cellulitis & Medicine - N.P. Abscess Upper Arm [place] & Forearm Office Visit 03/17/2013 10:40a [facility] Internal Aarti Almazan, 250.02 Diabetes Mellitus Medicine - N.P. W/O Compl Type II [place] Or Unspec Type Uncontrol 401.1 Hypertension Benign 112.3 Candidiasis Skin & Nails V04.89 Need For Prophylactic Vaccination & Inoculation Other Virus Office Visit 06/15/2012 3:00p [facility] Internal Aarti Almazan, V70.0 Examination Medicine - N.P. [facility] Routine AT Health Care Facility V72.31 Routine [employer] Examination V76.10 Screening For Malignant Neoplasm Breast 250.02 Diabetes Mellitus W/O Compl Type II Or Unspec Type Uncontrol 401.1 Hypertension Benign 278.01 Obesity Morbid V04.81 Need For Prophylactic Vaccination & Inoculation/Influenza 715.00 Osteoarthrosis Generalized Site Unspec V03.82 Streptococcus Pneumoniae Vaccination Spec Other Office Visit 03/04/2012 11:15a [facility], 717.3 Derangement Medial of Yong Lr Meniscus Other & Unspec Office Visit 02/27/2012 9:40a [facility] Internal Aarti Almazan, 401.1 Hypertension Medicine - N.P. Benign [place] 250.02 Diabetes Mellitus W/O Compl Type II Or Unspec Type Uncontrol 272.4 Hyperlipidemia Other Unspec Office Visit 02/26/2012 [facility], 719.46 Pain Joint Lower 1:00p of Yong Lr Leg Office Visit 01/08/2012 [facility] Internal Aarti Almazan, 401.1 Hypertension 9:40a Medicine - N.P. Benign [place] 250.02 Diabetes Mellitus W/O Compl Type II Or Unspec Type Uncontrol 311 Depressive Disorder Not Elsewhere Spec 844.9 Sprains & Strains Knee & Leg Unspec Office Visit 06/10/2011 DO Not Use Aarti Almazan, 250.02 Diabetes Mellitus 10:00a [employer] N.P. W/O Compl Type II Or Unspec Type Uncontrol Office Visit 05/22/2011 DO Not Use Aarti Almazan, V70.0 Examination 10:00a [employer] N.P. General Medical Routine AT Health Care Facility 401.1 Hypertension Benign 272.4 Hyperlipidemia Other Unspec 327.52 Sleep Related Leg Cramps Office Visit 08/09/2010 DO Not Use Aarti 110.3 Dermatophytosis 10:00a [employer] Varn, N.P. Groin & Perianal Area Office Visit 07/24/2010 DO Not Use Aarti 680.6 Carbuncle & Furuncle 11:00a [employer] Varn, N.P. Leg Except Foot 782.3 Edema Office Visit 05/23/2010 DO Not Use Aarti Varn, 346.90 Migraine Unspec 2:30p [employer] N.P. W/O Intractable W/O Status Migrainosus Office Visit 05/09/2010 DO Not Use Aarti Varn, 780.2 Syncope & 11:30a [employer] N.P. Collapse Office Visit 04/25/2010 DO Not Use Aarti Varn, 791.7 Cells & Casts In 11:15a [employer] N.P. Urine Other 682.3 Cellulitis & Abscess Upper Arm & Forearm Office Visit 03/21/2010 DO Not Use Aarti Varn, 401.1 Hypertension 1:30p [employer] N.P. Benign Office Visit 01/31/2010 DO Not Use Aarti Varn, 354.0 Carpal Tunnel 3:15p [employer] N.P. Syndrome 401.1 Hypertension Benign 278.01 Obesity Morbid Office Visit 12/13/2009 10:00a DO Not Use Aarti Varn, 354.0 Carpal Tunnel [employer] N.P. Syndrome Office Visit 07/21/2009 11:00a DO Not Use Aarti Varn, 268.9 Vitamin D [employer] N.P. Deficiency Unspec 466.0 Bronchitis Acute 519.11 Acute Bronchospasm Office Visit 07/06/2009 9:30a DO Not Use Aarti Varn, 719.40 Pain Joint [employer] N.P. Site Unspec 780.79 Malaise And Fatigue Other Office Visit 02/22/2009 DO Not Use Aarti Varn, 455.3 Hemorrhoids 10:00a [employer] N.P. External W/O Complication Office Visit 01/03/2009 DO Not Use Aarti Varn, V70.0 Examination 1:45p [employer] N.P. General Medical Routine AT Health Care Facility 401.1 Hypertension Benign Office Visit 06/09/2008 DO Not Use Aarti Varn, 455.3 Hemorrhoids 10:30a [employer] N.P. External W/O Complication Office Visit 02/16/2008 DO Not Use Aarti Varn, 354.0 Carpal Tunnel 8:45a [employer] N.P. Syndrome Office Visit 02/03/2008 DO Not Use Aarti Varn, 786.50 Pain Chest Unspec 9:45a [employer] N.P. 401.1 Hypertension Benign Office Visit 01/18/2008 10:15a DO Not Use Aarti Varn, 786.50 Pain Chest [employer] N.P. Unspec 401.1 Hypertension Benign Office Visit 12/21/2007 DO Not Use Aarti Varn, 401.1 Hypertension 10:15a [employer] N.P. Benign Office Visit 11/30/2007 DO Not Use Aarti Varn, 401.1 Hypertension 10:15a [employer] N.P. Benign 311 Depressive Disorder Not Elsewhere Spec Office Visit 11/13/2007 10:00a DO Not Use Aarti Varn, 682.6 Cellulitis & [employer] N.P. Abscess Leg Except Foot 401.1 Hypertension Benign 311 Depressive Disorder Not Elsewhere Spec Office Visit 10/12/2007 DO Not Use Aarti Varn, 311 Depressive 9:30a [employer] N.P. Disorder Not Elsewhere Spec Office Visit 07/06/2007 DO Not Use Aarti Varn, V72.31 Routine [employer] 9:30a [employer] N.P. Examination 401.1 Hypertension Benign 596.51 Hypertonicity Bladder V04.81 Need For Prophylactic Vaccination & Inoculation/Influenza V06.1 Nfqrucvjqs-Zcrmjjh-Mfmtiqzg Combined (DTaP) Plan of Treatment Future Appointment(s):09/17/2018 7:30 am - Zenia Nunes PA-C at [facility]09/17/2018 7:30 am - Neville Carmichael M.D. at [facility]11/03/2018 8:00 am - Hollis Kong MD at [facility]12/02/2018 9:20 am - Aarti Almazan N.P. at [facility] Internal Medicine [facility]09/11/2018 - BROCK Spencer-[id number] Spinal stenosis, lumbar region with neurogenic claudicationFollow up:Surgery scheduled for 09/17
[2018-10-04] MEDS ORDERED: oxyCODONE TAB* 5 MG TAB PO ONE (19:45)
[2018-10-04] MEDS ORDERED: NS 0.9% 1000 ML* 1,000 ML IV ONE (19:49)
[2018-10-04 19:57] LABS: ABS Basophils 0.1 10^3/ul (0-0.2); ABS Eosinophils 0.1 10^3/ul (0-0.6); ABS Lymphocytes 1.4 10^3/ul (1.0-4.8); ABS Monocytes 0.6 10^3/ul (0-0.8); ABS Neutrophils 8.2 10^3/ul (1.5-7.7); ABS Nucleated RBC 0 10^3/ul; Eosinophil % 0.5 %; Hematocrit 44 % (35-47); Hemoglobin 15.2 g/dl (12.0-16.0); Lymphocyte % 13.3 %; Mean Corpuscular HGB Conc 35 g/dl (31-36); Mean Corpuscular Hemoglobin 31 pg (27-31); Mean Corpuscular Volume 90 fL (80-97); Mean Platelet Volume 9.5 fL (7.4-10.4); Nucleated Red Blood Cells % 0; Platelet Count 179 10^3/ul (150-450); Red Blood Count 4.92 10^6/ul (4.00-5.40); Red Cell Distribution Width 13 % (10.5-15); White Blood Count 10.3 10^3/ul (3.5-10.8)
--- NOTE | 2018-10-04 20:17 | HP ---
H&P (Free Text) History and Physical: History and Physical Date of Admission: 10/04/18 Admitting Provider: BROCK Spencer Attending: Dr. Carmichael HPI: This is a 57 year old female with past medical history significant for diabetes and recent lumbar decompression L2-[address] Carmichael on . She has a history of previous L3-S1 fusion after which recovery was complicated with infection requiring additional surgery. She was recovering slowly post-operatively although feeling well in the last week. She only required ibuprofen post-operatively for pain management. She was last seen in office for follow up on and at that visit the surgical albertina were removed from incision. Wound was mildly irritated but healing well, nontender, nonerythematous and without drainage. This morning she noticed that the wound was draining when fluid ran down her back. She applied a dressing and states that the wound would only drain when she stood up or moved around. At that time , she denies low back pain, numbness, tingling and pain in lower extremities, fever, chills, headache, nausea and vomiting. She states that she was resting and sleeping most of the day because she was tired out from the previous 2 days when she when grocery shopping. Around 5pm today she developed severe low back pain described as spasms and sharp pain. She needed to take Tramadol for the pain with minimal improvement. She also developed nausea, vomiting and chills. She was concerned with the new symptoms along with the wound drainage and therefore called the neurosurgery print production manager and was advised to present to [facility] for evaluation. She currently complains of severe back pain and pain with tingling in the bilateral lower extremities, right worse than left, when she stands and walks. Past Medical History: 1. Lumbar stenosis 2. Diabetes 3. Depression 4. Hyperlipidemia Past Surgical History: 1. Decompressive lumbar laminectomy L2-3 on 09/17/18 Dr. Carmichael 2. Lumbar fusion L3-S1 Home Medications: Allergies: 1. Adhesive tape 2. Codeine 3. Penicillins 4. Rosuvastatin ROS: Full ROS completed. Pertinent findings stated in HPI and all others negative. Physical Exam: Vital Signs: Temp Pulse Resp BP Pulse Ox 99.3 F 117 20 110/83 97 10/04/18 18:29 10/04/18 19:38 10/04/18 18:29 10/04/18 20:09 10/04/18 19:38 General: Alert and sitting in wheelchair, NAD. HEENT: Head is normocephalic and atraumatic. PERRL, EOMI. Moist mucus membranes. Gross hearing intact. Neck: Supple and symmetric. CV: Radial and pedal pulses 2+ and equal Lungs: Breathing is nonlabored and lungs are clear Abdomen: The abdomen is obese, nontender. Neuro: Speech is clear, answers questions appropriately. Strength 5/5 bilateral lower extremities. Sensation diminished RLE at baseline. Lumbar wound: Wound is mildly erythematous, moderately tender to light palpation , scabbed with less than 1 cm open area near center of wound draining small amount of serosanguineous fluid. Assessment: This is a 57 year old female with past medical history of diabetes and recent lumbar spine surgery who presents with complaint of open, draining lumbar wound, recent onset severe back pain, chills, nausea and vomiting. Plan: 1. Admit to short stay for observation 2. CBC, CMP, lumbar wound culture 3. Vancomycin IV 4. Pain management with oxycodone, cyclobenzaprine 5. IV fluids 6. Hospitalist consult for medical comanagement
[2018-10-04 20:21] LABS: Albumin 4.1 g/dL (3.2-5.2); Calcium 9.5 mg/dL (8.6-10.3); Potassium 3.6 mmol/L (3.5-5.0); Total Bilirubin 0.7 mg/dL (0.2-1.0)
[2018-10-04 20:26] LABS: Albumin/Globulin Ratio 1.4 (1-3); BUN/Creatinine Ratio 14.7 (8-20); C Reactive Protein 11.7 mg/L (<8.01); EGFR Non-African American 60.6 (>60); Globulin 2.9 g/dL (2-4)
[2018-10-04] MEDS ORDERED: Dextrose 50% Syringe 50 ML* 25 GM/50 ML SYRINGE IV PUSH PRN (20:41)
[2018-10-04] MEDS ORDERED: Vancomycin(*) 2,000 MG in NS 0.9% 500 ML* 500 ML IVPB ONE (20:42)
[2018-10-04] MEDS ORDERED: Insulin GLARGINE(*) 1 UNITS UNIT SUBCUT SCH (21:00)
--- NOTE | 2018-10-04 21:01 | PN ---
Progress Note - Progress Note Date of Service: 10/04/18 Note: Patient presented for back pain status post back surgery 3 weeks ago. Patient was seen by surgical PA prior to my evaluation however I was unaware of this. I assessed patient and put in some orders. Then discussed patient with surgical PA Zenia Nunes who was already admitting patient to [facility]. Patient admitted in stable condition for postsurgical back pain.
[2018-10-04] MEDS: Lactated Ringers 1000 ML Bag* 1,000 ML IV SCH ×2 (21:11→21:40)
[2018-10-04] MEDS ORDERED: Vancomycin per Pharmacy* NOTE FOLLOW UP PRN (21:15)
[2018-10-04] MEDS: NS 0.9% 1000 ML* 2,000 ML IV ONE ×2 (21:18→22:28)
[2018-10-04] MEDS: Cyclobenzaprine TAB* 10 MG PO PRN (21:51)
[2018-10-04] MEDS: Insulin LISPRO* 1 UNITS UNIT SUBCUT SCH (21:53)
[2018-10-04] MEDS: Ibuprofen TAB* 800 MG PO PRN (22:33)
--- NOTE | 2018-10-04 23:04 | CONS ---
CC: Dr. Carmichael; Dr. Catalan * CONSULTATION REPORT: DATE OF CONSULT: 10/04/18 CHIEF COMPLAINT: Back pain. HISTORY OF PRESENT ILLNESS: This is a 57-year-old female with history of a recent lumbar decompressive laminectomy on 09/17/18. She reports she had been doing well postoperatively at home, had been walking around. Her albertina were removed last week in the neurosurgery office. She was not requiring any pain medication, but today she developed severe onset of back pain. She localizes the back pain to deep to the incision and not in the skin. It is constant, but worse with movement. Otherwise, she has no complaints. We are asked to see her for diabetes management. Regarding her diabetes, she is currently following with Dr. Kong and she takes metformin and Januvia. Her last A1c was 9.3 in April. She checks her blood sugar at home and this morning it was 285. She says it is normally higher than that in the morning. PAST MEDICAL HISTORY: Obesity, hyponatremia, type 2 diabetes, and hypertension. SOCIAL HISTORY: She quit smoking in 2000. She drinks an occasional glass of wine and no other illicit drugs. Her emergency contact is her , Julian Lynn. REVIEW OF SYSTEMS: She denies chest pain, shortness of breath, headache, lightheadedness, dizziness. She does note some nausea, but no vomiting, no constipation, diarrhea, or urinary or bowel incontinence. No lower extremity weakness or numbness and no fevers. PHYSICAL EXAM: Heart rate 117, respiratory rate 20, pulse ox 97% on room air, blood pressure 130/96, temperature 99.3. General: Alert, obese female, who is uncomfortable, but in no distress. HEENT: Pupils 4 mm bilaterally and reactive to light. Oral mucosa is very dry. Neck: No JVP. No adenopathy. Chest: She is tachycardic with no murmurs. Her lungs are clear bilaterally. Her abdomen is obese, soft, nontender. Her extremities, no edema, rashes, or ulcers. Neurologic: Her lumbar incision is erythematous with minimal drainage. The incision has approximately half a centimeter at the inferior portion. There is no associated odor. Her strength is 5/5 in all extremities and her sensation is grossly intact. She is oriented x3. DIAGNOSTIC STUDIES/LAB DATA: Labs: Sodium 130, potassium 3.6, chloride 91, bicarb 27, creatinine 0.95, glucose 457, lactic acid 3.8, CRP 11.7. White blood cell 10.3, hemoglobin 15.2, platelets 179. Imaging: None. ASSESSMENT AND PLAN: This is a 57-year-old female with poorly controlled diabetes, who is admitted to neurosurgery service 2 weeks after a decompressive lumbar laminectomy. Medicine is consulted for diabetes management. 1. Intractable back pain. This began this morning and it is being worked up by Neurosurgery. Given her poorly controlled diabetes and her systemic inflammatory response syndrome criteria, I am most suspicious for a deep abscess or a wound. I will defer imaging to Neurosurgery if they feel this was a concern. 2. Systemic inflammatory response syndrome given her suspected source of the incision wound or a deeper infection. I agree with Neurosurgery's decision to start vancomycin. Blood cultures have been ordered by the emergency department physician. A urinalysis and wound culture are also pending. I see no other localizing source of infection, so I agree with gram-positive coverage for a likely soft tissue infection. She also needs volume resuscitation for sepsis and I am ordering normal saline 30 cc/kg. 3. Poorly controlled diabetes. She only takes oral medications at home, but I think it is reasonable to start Lantus here given our concern for a wound infection and the need for better glycemic control in the setting of wound healing. On her last admission, she was on Lantus 20 units nightly and had reasonable control from starting this. It should be noted that her weight- based dose for insulin would be 58 units daily, so we have plenty of room to increase this Lantus dose along with mealtime insulin should we need to. I am not starting mealtime insulin because she said she does not have an appetite and has not been eating, but we can add this if she begins to eat. 4. Elevated lactate. This may also be a reflection of sepsis and I am ordering volume resuscitation as above. 5. Hypertension. I agree with holding her antihypertensive given her sepsis. 6. Hyponatremia. This is chronic for her and she was recently started on salt tabs at home, but was unable to tolerate them. Her sodium is a little below baseline and I suspect she is quite dry and this will improve with volume resuscitation. [id number]/[facility] #: [id number] [facility]
[2018-10-04] MEDS: oxyCODONE TAB* 5 MG TAB PO PRN (23:48)
[2018-10-05] MEDS: Morphine VIAL* 4 MG/ML VIAL (1 ml vial) IV PRN ×2 (00:41→11:11)
[2018-10-05] MEDS: oxyCODONE TAB* 5 MG TAB PO PRN ×4 (05:30→22:24)
[2018-10-05] MEDS ORDERED: Vancomycin(*) 1,500 MG in NS 0.9% 250 ML* 250 ML IVPB SCH (09:00)
[2018-10-05] MEDS: Insulin LISPRO* 1 UNITS UNIT SUBCUT SCH ×5 (09:50→22:09)
[2018-10-05] MEDS: Lactated Ringers 1000 ML Bag* 1,000 ML IV SCH (10:00)
[2018-10-05] MEDS ORDERED: Gadoteridol* (CONTRAST) 279.3 MG/ML 10 ML IV ONE (10:32)
[2018-10-05] MEDS ORDERED: ceFAZolin 1 GM VIAL(*) 2 GM in NS 0.9% 100 ML* 100 ML IVPB SCH (14:00)
--- NOTE | 2018-10-05 14:07 | CONSULT ---
Subjective Date of Service: 10/05/18 Interval History: HD #1 57 yo F with PMH NIDDM also s/p back surgery 3 weeks ago who is consulted to medicine for hyperglycemia VSS overnight and no acute events. Pt reports feeling well without complaints, POC Glu reviewed > 300 for breakfast 4Am and after lunch today 385, 12 U of Lispro given after breakast. 20U of Lantus ordered to start tonight. Review of Systems - Measurements Intake and Output: Intake and Output Last 24 Hours 10/03/18 10/04/18 10/05/18 10/06/18 06:59 06:59 06:59 06:59 Intake Total 2920 1788 Output Total 250 Balance 2670 1788 Weight 320 lb 320 lb Intake: IV Fluids 2180 864 LR 864 NS (0.9%) 1980 IVPB 564 ABX - VANCOMYCIN 564 Oral 740 360 Output: Urine 250 Other: Estimated Void Large Large - Review of Systems HEENT: Positive: Normal Eyes: Positive: Normal Pulmonary: Positive: Normal Cardiology: Positive: Normal Gastroenterology: Positive: Normal Endocrinology: Positive: Normal Neurology: Positive: Normal Objective Active Medications: Cyclobenzaprine HCl (Flexeril Tab*) 10 mg PO TID PRN PRN Reason: muscle spasms Last Admin: 10/04/18 21:51 Dose: 10 mg Dextrose (D50w Syringe 50 Ml*) 12.5 gm IV PUSH .FOR FS < 60 - SS PRN PRN Reason: FS < 60 Lactated Ringer's (Lactated Ringers 1000 Ml Bag*) 1,000 mls @ 75 mls/hr IV .per rate JULI Last Admin: 10/05/18 10:00 Dose: 75 mls/hr Cefazolin Sodium 2 gm/ Sodium (Chloride) 100 mls @ 200 mls/hr IVPB Q8H JULI Ibuprofen (Motrin Tab*) 800 mg PO Q8H PRN PRN Reason: PAIN Last Admin: 10/04/18 22:33 Dose: 800 mg Insulin Glargine (Lantus(*)) 25 units SUBCUT Q24H JULI Insulin Human Lispro (Humalog*) 0 units SUBCUT ACHS JULI; Protocol Last Admin: 10/05/18 09:50 Dose: 12 units Insulin Human Lispro (Humalog*) 6 units SUBCUT AC JULI Morphine Sulfate (Morphine Vial*) 2 mg IV Q4H PRN PRN Reason: PAIN Last Admin: 10/05/18 11:11 Dose: 2 mg Oxycodone HCl (Roxycodone Tab*) 10 mg PO Q4H PRN PRN Reason: PAIN Last Admin: 10/05/18 09:49 Dose: 10 mg Vital Signs - 8 hr 10/05/18 10/05/18 10/05/18 07:31 08:00 09:49 Temperature 97.4 F Pulse Rate 108 Respiratory 16 16 18 Rate Blood Pressure 111/62 (mmHg) O2 Sat by Pulse 93 Oximetry 10/05/18 10/05/18 10/05/18 11:11 11:27 13:01 Temperature 98.6 F Pulse Rate 115 Respiratory 18 16 18 Rate Blood Pressure 129/72 (mmHg) O2 Sat by Pulse 92 Oximetry Oxygen Devices in Use Now: None Eyes: No Scleral Icterus Ears/Nose/Mouth/Throat: NL Teeth, Lips, Gums Neck: NL Appearance and Movements; NL JVP Respiratory: Symmetrical Chest Expansion and Respiratory Effort Cardiovascular: NL Sounds; No Murmurs; No JVD Abdominal: NL Sounds; No Tenderness; No Distention Lymphatic: No Cervical Adenopathy Neurological: Alert and Oriented x 3 Result Diagrams: 10/04/18 19:50 10/04/18 19:50 Microbiology and Other Data: Microbiology 10/04/18 19:49 Aerobic Blood Culture - Preliminary Blood Venous Anaerobic Blood Culture - Preliminary 10/04/18 19:50 Aerobic Blood Culture - Preliminary Blood Venous Anaerobic Blood Culture - Preliminary Blood MRSA/MSSA (PCR) - Final Mrsa Negative S.aureus Positive 10/04/18 23:55 Skin and Soft Tissue MRSA/MSSA (PCR - Final Back Mrsa Negative S.aureus Positive Gram Stain - Final 10/04/18 22:25 Nasal Screen MRSA (PCR) - Final Nasal Mrsa Not Detected Assessment/Plan - Billing Plan By Medical Problem: 57 yo F with PMH NIDDM and s/p back surgery 3 weeks ago, also with chronic hypoNA came in for acute onset pain currently on neurosurgical service, hospital stay c/b hyperglycemia and elevated lactate. 1) NIDDM at home and hyperglycemia in hospital: Managed by Metformin and Sitagliptin at home, will add on A1C for idea of home control. Last seen 9.3 in April of 2018 -Start Lantus 20U initially, though given degree of hyperglycemia, increase to 25U for tonight -Sliding scale lispro coverage weight based with meals as protocol, start 6U AC standing for bolus coverage 2) Elevated Lactate: Continue volume resuscitation 3) Back pain: Plan per surgical team, she reports some improvement today, remains on abx for coverage in event of infection which may be driving hyperglycemic events. DVT PPX: As per surgery Diet: Consistent carb
[2018-10-05] MEDS ORDERED: ceFAZolin 2 GM PREMIX in ORs 2 GM/50 ML BAG IVPB SCH (14:09)
[2018-10-05] MEDS: Insulin GLARGINE(*) 1 UNITS UNIT SUBCUT SCH (14:39)
[2018-10-05] MEDS ORDERED: Lactated Ringers 1000 ML Bag* 1,000 ML IV SCH (17:00)
[2018-10-05] MEDS ORDERED: Piperacillin/Tazobac ADVAN(*) 3.375 GM in NS 0.9% 100 ML* 100 ML IVPB SCH (17:00)
[2018-10-05] MEDS ORDERED: Vancomycin per Pharmacy* NOTE FOLLOW UP SCH (17:00)
--- NOTE | 2018-10-05 17:11 | PN ---
Subjective Date of Service: 10/05/18 Interval History: HD #1 Pt seen in the morning for consult service and then called to bedside at 4:30PM , acute decompensation with spiking fever of 103, tach to sinus 120's, and slightly altered, BP 130/80, satting well on RA. Last dose of Oxycodone 3PM, last dose Vanco 9 AM, micro returns MSSA bactermia. Vanco was cancelled and Cefazolin ordered but not given yet. No tylenol on board. Pt says she is feeling sleepy but otherwise no complaints, she is oriented to herself, place, month and year but not specific date. She does have a momentary pause before answering. She follows all commands, she has no isolated new pain aside from her back. Objective Active Medications: Acetaminophen (Tylenol Tab*) 650 mg PO Q4H PRN PRN Reason: FEVER/PAIN Cyclobenzaprine HCl (Flexeril Tab*) 10 mg PO TID PRN PRN Reason: muscle spasms Last Admin: 10/04/18 21:51 Dose: 10 mg Dextrose (D50w Syringe 50 Ml*) 12.5 gm IV PUSH .FOR FS < 60 - SS PRN PRN Reason: FS < 60 Enoxaparin Sodium (Lovenox(*)) 40 mg SUBCUT Q24H [facility] Lactated Ringer's (Lactated Ringers 1000 Ml Bag*) 1,000 mls @ 75 mls/hr IV .per rate [facility] Last Admin: 10/05/18 10:00 Dose: 75 mls/hr Lactated Ringer's (Lactated Ringers 1000 Ml Bag*) 1,000 mls @ 0 mls/hr IV WIDE OPEN [facility] Stop: 10/05/18 23:59 Piperacillin Sod/Tazobactam (Sod 3.375 gm/ Sodium Chloride) 100 mls @ 25 mls/ hr IVPB Q12H [facility] Ibuprofen (Motrin Tab*) 800 mg PO Q8H PRN PRN Reason: PAIN Last Admin: 10/04/18 22:33 Dose: 800 mg Insulin Glargine (Lantus(*)) 25 units SUBCUT Q24H [facility] Last Admin: 10/05/18 14:39 Dose: 25 units Insulin Human Lispro (Humalog*) 0 units SUBCUT ACHS [facility]; Protocol Last Admin: 10/05/18 14:38 Dose: 15 units Insulin Human Lispro (Humalog*) 6 units SUBCUT AC [facility] Oxycodone HCl (Roxycodone Tab*) 10 mg PO Q4H PRN PRN Reason: PAIN Last Admin: 10/05/18 15:18 Dose: 10 mg Pharmacy Consult (Vancomycin Per Pharmacy*) 1 note FOLLOW UP .VANC PER PHARMACY [facility] Vital Signs - 8 hr 10/05/18 10/05/18 10/05/18 09:49 11:11 11:27 Temperature 98.6 F Pulse Rate 115 Respiratory 18 18 16 Rate Blood Pressure 129/72 (mmHg) O2 Sat by Pulse 92 Oximetry 10/05/18 10/05/18 10/05/18 13:01 15:18 15:46 Temperature 102.9 F Pulse Rate 128 Respiratory 18 18 22 Rate Blood Pressure 142/85 (mmHg) O2 Sat by Pulse 95 Oximetry Oxygen Devices in Use Now: None Appearance: Sleepy appearing obese woman in NAD Eyes: No Scleral Icterus, PERRLA Ears/Nose/Mouth/Throat: NL Teeth, Lips, Gums Neck: NL Appearance and Movements; NL JVP Respiratory: Symmetrical Chest Expansion and Respiratory Effort, Clear to Auscultation Cardiovascular: NL Sounds; No Murmurs; No JVD, RRR Abdominal: NL Sounds; No Tenderness; No Distention Lymphatic: No Cervical Adenopathy Extremities: No Edema Skin: No Rash or Ulcers - wound on lumbar spine covered w/ dressing, TTP around paraspinal Neurological: Alert and Oriented x 3 Result Diagrams: 10/04/18 19:50 10/04/18 19:50 Microbiology and Other Data: Microbiology 10/04/18 19:49 Aerobic Blood Culture - Preliminary Blood Venous Anaerobic Blood Culture - Preliminary 10/04/18 19:50 Aerobic Blood Culture - Preliminary Blood Venous Anaerobic Blood Culture - Preliminary Blood MRSA/MSSA (PCR) - Final Mrsa Negative S.aureus Positive 10/04/18 23:55 Skin and Soft Tissue MRSA/MSSA (PCR - Final Back Mrsa Negative S.aureus Positive Gram Stain - Final 10/04/18 22:25 Nasal Screen MRSA (PCR) - Final Nasal Mrsa Not Detected Assess/Plan/Problems-Billing Plan By Medical Problem: 57 yo F with PMH NIDDM and s/p back surgery 3 weeks ago, also with chronic hypoNA came in for acute onset pain currently on neurosurgical service, found to have epidural enhancement concerning for wound infection c/b staph bacteremia , tachycardia and fever c/w sepsis with elevated lactate. At this juncture we will transfer to medicine to watch for acute decompensation and initiate sepsis protocol. - Patient Problems (1) Back pain Current Visit: Yes Status: Acute Code(s): M54.9 - DORSALGIA, UNSPECIFIED SNOMED Code(s): 198831022 Comment: Most c/w surgical site infection with e/o epidural enhancement without jeanie collection at this point -Neurosurgery consult to follow to determine if return to OR is pending -Tylenol ATC, Oxy 10 PRN -Ibuprofen PRN (2) Sepsis Current Visit: Yes Status: Acute Comment: 10/24 to staph infection, staph bacteremia from surgical site infection -Vanc and Zosyn to remain on 10/05 overnight given continuing to spike fevers -UA yet to be collected, CXR pending -Trend lactate -IVF with LR bolus 1L wide open from 4:30PM-5:30 PM, resume NS at 100cc/hr (3) Staphylococcus aureus bacteremia Current Visit: Yes Status: Acute Code(s): R78.81 - BACTEREMIA SNOMED Code( s): 681903865 Comment: Continue broad spectrum for 10/05/18 PM, though yuliya may be able to narrow for MSSA in 10/06/2018 if remains afebrile and remainder of sepsis w/u neg. -ID consult 10/06 -Routine blood cultures daily until neg -FRANCISCO J per ID recs (4) Hyponatremia Current Visit: Yes Status: Acute Code(s): E87.1 - HYPO-OSMOLALITY AND HYPONATREMIA SNOMED Code(s): 64974369 Comment: Appears chronic, mild at 130 on admission -Trend and evaluate urine as necessary (5) Altered mental state Current Visit: Yes Status: Acute Code(s): R41.82 - ALTERED MENTAL STATUS, UNSPECIFIED SNOMED Code(s): 909342154 Comment: During setting of fever, tachycardia, most likely from infection, neurological exam is intact -r/o hypercarbia with ABG -Stat labs and ammonia -Broad spectrum abx at this time (6) DMII (diabetes mellitus, type 2) Current Visit: No Status: Acute Comment: - Very poor control in the hospital like / to infection - Increase glargine 25U QHS, Lispro 6 U AC and SSI for post meal coverage - Will resume oral medications at D/C - A1C 10.3 reflecting likely need for home on Lantus (7) Obesity Current Visit: No Status: Acute Code(s): E66.9 - OBESITY, UNSPECIFIED SNOMED Code(s): 531016546 Comment: Concern for OHS/MILAN -ABG now given AMS (8) DVT prophylaxis Current Visit: Yes Status: Acute Code(s): [id number] - SNOMED Code(s): 214968644 Comment: Lovenox q 24 hrs
[2018-10-05] MEDS ORDERED: Acetaminophen TAB* 325 MG ONE (17:25)
[2018-10-05] MEDS: Acetaminophen TAB* 325 MG PO PRN ×2 (17:27→22:23)
[2018-10-05] MEDS ORDERED: NS 0.9% 1000 ML* 1,000 ML IV SCH (17:30)
[2018-10-05 17:54] LABS: ABS Basophils 0 10^3/ul (0-0.2); ABS Eosinophils 0.1 10^3/ul (0-0.6); ABS Lymphocytes 1.5 10^3/ul (1.0-4.8); ABS Monocytes 0.5 10^3/ul (0-0.8); ABS Neutrophils 8.9 10^3/ul (1.5-7.7); ABS Nucleated RBC 0 10^3/ul; Eosinophil % 0.7 %; Hematocrit 42 % (35-47); Hemoglobin 14.4 g/dl (12.0-16.0); Lymphocyte % 13.5 %; Mean Corpuscular HGB Conc 34 g/dl (31-36); Mean Corpuscular Hemoglobin 31 pg (27-31); Mean Corpuscular Volume 91 fL (80-97); Nucleated Red Blood Cells % 0.1; Red Blood Count 4.65 10^6/ul (4.00-5.40); Red Cell Distribution Width 13 % (10.5-15)
[2018-10-05 17:59] LABS: Albumin 3.8 g/dL (3.2-5.2); Albumin/Globulin Ratio 1.4 (1-3); BUN/Creatinine Ratio 9.5 (8-20); Calcium 8.8 mg/dL (8.6-10.3); EGFR Non-African American 60.6 (>60); Globulin 2.7 g/dL (2-4); Total Protein 6.5 g/dL (6.4-8.9)
[2018-10-05] MEDS ORDERED: NS 0.9% 500 ML* 500 ML IV ONE (18:31)
[2018-10-05] MEDS: Enoxaparin(*) 40 MG/0.4 ML SYR SUBCUT SCH (18:46)
[2018-10-05] MEDS: NS 0.9% 1000 ML* 1,000 ML IV SCH (18:48)
[2018-10-05] MEDS: Cefepime 2 GM in Dextrose(*) 2 GM/50 ML BAG IV SCH (19:30)
[2018-10-05 19:51] LABS: Urine Appearance Cloudy; Urine Bacteria 1+ (Absent); Urine Bilirubin Negative (Negative); Urine Blood 2+ (Negative); Urine Color Yellow; Urine Glucose 3+(>=500 mg/dL) (Negative); Urine Ketones Trace (Negative); Urine Nitrite Negative (Negative); Urine Protein 2+(100 mg/dL) (Negative); Urine Red Blood Cell Absent (Absent); Urine Specific Gravity 1.037 (1.010-1.030); Urine Urobilinogen Negative (Negative); Urine White Blood Cell Trace(0-5/hpf) (Absent)
[2018-10-05] MEDS: Ibuprofen TAB* 800 MG PO PRN (20:16)
[2018-10-05] MEDS: Potassium Chlor TAB* 20 MEQ TAB.ER PO SCH (20:16)
--- NOTE | 2018-10-05 21:29 | PN ---
Sepsis Event Evaluation Date of Evaluation: 10/05/18 Time of Evaluation: 09:20 Current Stage of Sepsis: Sepsis Vital Signs - Last 12 Hours: Vital Signs - 12 hr Temp Pulse Resp BP Pulse Ox 10/05/18 19:24 98.1 F 129 18 142/86 91 10/05/18 17:49 102 F 142 22 142/70 92 10/05/18 16:32 130 24 134/76 100 10/05/18 16:22 102.4 F 129 91 10/05/18 15:46 102.9 F 128 22 142/85 95 10/05/18 15:18 18 10/05/18 13:01 18 10/05/18 11:27 98.6 F 115 16 129/72 92 10/05/18 11:11 18 10/05/18 09:49 18 Lactic Acid: 10/04/18 10/04/18 10/05/18 19:50 23:52 17:33 Lactic Acid 3.8 H* 3.4 H* 3.2 H* Exceptions to Standard of Care: Repeat lactic acid pending at this time - Cardiopulmonary Exam Capillary Refill: Immediate Respiratory: Clear to Auscultation Cardiovascular: RRR - , tachycardic - Peripheral Pulse Exam Radial Pulses: Bilateral Normal Pedal Pulses: Bilateral Normal - Skin Exam Skin Exam: Normal Turgor - Orion Coma Scale Best Eye Response: 4 - Spontaneous Best Motor Response: 6 - Obeys Commands Best Verbal Response: 5 - Oriented Coma Scale Total: 15 Assess/Plan/Problems-Billing Plan By Medical Problem: 57 yo F with PMH NIDDM and s/p back surgery 3 weeks ago, also with chronic hypoNA came in for acute onset pain currently on neurosurgical service, found to have epidural enhancement concerning for wound infection c/b staph bacteremia , tachycardia and fever c/w sepsis with elevated lactate. At this juncture we will transfer to medicine to watch for acute decompensation and initiate sepsis protocol.
[2018-10-05] MEDS: Vancomycin(*) 1,500 MG in NS 0.9% 250 ML* 250 ML IVPB SCH (22:10)
[2018-10-05] MEDS: Ondansetron INJ* 2 MG/ML VIAL IV PRN (22:23)
[2018-10-06] MEDS: Acetaminophen TAB* 325 MG PO PRN (03:45)
[2018-10-06] MEDS: NS 0.9% 1000 ML* 1,000 ML IV SCH (03:47)
[2018-10-06] MEDS: Ondansetron INJ* 2 MG/ML VIAL IV PRN ×2 (05:09→11:36)
[2018-10-06] MEDS: Cefepime 2 GM in Dextrose(*) 2 GM/50 ML BAG IV SCH (06:43)
[2018-10-06 06:45] LABS: Hematocrit 36 % (35-47); Hemoglobin 12.2 g/dl (12.0-16.0); Mean Corpuscular HGB Conc 35 g/dl (31-36); Mean Corpuscular Hemoglobin 31 pg (27-31); Mean Corpuscular Volume 90 fL (80-97); Red Blood Count 3.93 10^6/ul (4.00-5.40); Red Cell Distribution Width 12 % (10.5-15); White Blood Count 3.6 10^3/ul (3.5-10.8)
[2018-10-06 06:55] LABS: Albumin 2.7 g/dL (3.2-5.2); Calcium 8.1 mg/dL (8.6-10.3); EGFR Non-African American 79.6 (>60); Globulin 2.8 g/dL (2-4); Potassium 3.1 mmol/L (3.5-5.0); Total Bilirubin 0.9 mg/dL (0.2-1.0); Total Protein 5.5 g/dL (6.4-8.9)
--- NOTE | 2018-10-06 07:35 | PN ---
Subjective Date of Service: 10/06/18 Interval History: HD #2 10/06/18 57 yo F with PMH recent multilevel laminectomy, NIDDM poor control who presented for back pain, found to have wound infection and bacteremia. Overnight, no acute events. VS: T max 102 at 5PM 10/05, afebrile since then, tylenol x2, HR 140-99 sinus (this AM sinus 100) BP 116-142/64-80, satting well on RA. Sepsis protocol initiated last night, bolus of LR 1L and NS 500cc given, mae culture, moved to tele, lactate trended down from 3.2 to < 1. Remains on IVF this morning. UOP adequate, no BM today. This morning she is clear liquid and plan for NPO for wash out today by NS team. She reports feeling much improved, less confused, no fever, nausea improved. Does still have c/o aching back pain. Answered all questions of her and . Objective Active Medications: Acetaminophen (Tylenol Tab*) 650 mg PO Q4H PRN PRN Reason: FEVER/PAIN Last Admin: 10/06/18 03:45 Dose: 650 mg Cyclobenzaprine HCl (Flexeril Tab*) 10 mg PO TID PRN PRN Reason: muscle spasms Last Admin: 10/04/18 21:51 Dose: 10 mg Dextrose (D50w Syringe 50 Ml*) 12.5 gm IV PUSH .FOR FS < 60 - SS PRN PRN Reason: FS < 60 Enoxaparin Sodium (Lovenox(*)) 40 mg SUBCUT Q24H [facility] Last Admin: 10/05/18 18:46 Dose: 40 mg Vancomycin HCl 1,500 mg/ (Sodium Chloride) 250 mls @ 166.667 mls/hr IVPB Q12H [facility] Last Admin: 10/05/18 22:10 Dose: 166.667 mls/hr Cefepime HCl (Maxipime 2 Gm In Dextrose Duplex (*)) 2 gm in 50 mls @ 100 mls/ hr IV Q12H [facility] Last Admin: 10/06/18 06:43 Dose: 100 mls/hr Sodium Chloride (Ns 0.9% 1000 Ml*) 1,000 mls @ 150 mls/hr IV PER RATE [facility] Stop: 10/07/18 01:09 Last Admin: 10/06/18 03:47 Dose: 150 mls/hr Ibuprofen (Motrin Tab*) 800 mg PO Q8H PRN PRN Reason: PAIN Last Admin: 10/05/18 20:16 Dose: 800 mg Insulin Glargine (Lantus(*)) 25 units SUBCUT Q24H [facility] Last Admin: 10/05/18 14:39 Dose: 25 units Insulin Human Lispro (Humalog*) 0 units SUBCUT ACHS [facility]; Protocol Last Admin: 10/05/18 22:09 Dose: 9 units Insulin Human Lispro (Humalog*) 6 units SUBCUT AC [facility] Last Admin: 10/05/18 18:47 Dose: 6 units Ondansetron HCl (Zofran Inj*) 4 mg IV Q6H PRN PRN Reason: NAUSEA Last Admin: 10/06/18 05:09 Dose: 4 mg Oxycodone HCl (Roxycodone Tab*) 5 mg PO Q4H PRN PRN Reason: PAIN Last Admin: 10/05/18 22:24 Dose: 5 mg Pharmacy Consult (Vancomycin Per Pharmacy*) 1 note FOLLOW UP .VANC PER PHARMACY [facility] Pharmacy Profile Note (Vancomycin Trough Check) 1 note FOLLOW UP 0830 ONE Stop: 10/06/18 08:31 Potassium Chloride (Klor Con Er Tab*) 20 meq PO BID [facility] Stop: 10/07/18 23:59 Last Admin: 10/05/18 20:16 Dose: 20 meq Vital Signs - 8 hr 10/06/18 10/06/18 10/06/18 00:27 01:01 03:40 Temperature 99.0 F 98.5 F Pulse Rate 103 99 Respiratory 16 20 16 Rate Blood Pressure 129/72 116/64 (mmHg) O2 Sat by Pulse 99 97 Oximetry 10/06/18 07:23 Temperature Pulse Rate Respiratory 20 Rate Blood Pressure (mmHg) O2 Sat by Pulse Oximetry Oxygen Devices in Use Now: None Appearance: Lying in bed in NAD Eyes: No Scleral Icterus Ears/Nose/Mouth/Throat: NL Teeth, Lips, Gums Neck: NL Appearance and Movements; NL JVP Respiratory: Symmetrical Chest Expansion and Respiratory Effort, Clear to Auscultation Cardiovascular: NL Sounds; No Murmurs; No JVD Abdominal: NL Sounds; No Tenderness; No Distention Lymphatic: No Cervical Adenopathy Extremities: No Edema Skin: No Rash or Ulcers, - - Back wound dressed Neurological: Alert and Oriented x 3 Result Diagrams: 10/06/18 06:23 10/06/18 06:23 Additional Lab and Data: ABG done, normal at time of decompensation yesterday afternoon. Microbiology and Other Data: Microbiology 10/04/18 19:49 Aerobic Blood Culture - Preliminary Blood Venous Anaerobic Blood Culture - Preliminary 10/04/18 19:50 Aerobic Blood Culture - Preliminary Blood Venous Anaerobic Blood Culture - Preliminary Blood MRSA/MSSA (PCR) - Final Mrsa Negative S.aureus Positive 10/04/18 23:55 Skin and Soft Tissue MRSA/MSSA (PCR - Final Back Mrsa Negative S.aureus Positive Gram Stain - Final 10/04/18 22:25 Nasal Screen MRSA (PCR) - Final Nasal Mrsa Not Detected Diagnostic Imaging: CXR: No acute path Assess/Plan/Problems-Billing Plan By Medical Problem: 57 yo F with PMH NIDDM and s/p back surgery 3 weeks ago, also with chronic hypoNA came in for acute onset pain currently on neurosurgical service, found to have epidural enhancement concerning for wound infection c/b staph bacteremia and sepsis which is resolving. Plan for washout 10/06/18. - Patient Problems (1) Back pain Current Visit: Yes Status: Acute Code(s): M54.9 - DORSALGIA, UNSPECIFIED SNOMED Code(s): 624828940 Comment: Most c/w surgical site infection with e/o epidural enhancement and jeanie collection --Neurosurgery consult recommends to go for washout --Tylenol ATC, Oxy 5 PRN --Ibuprofen PRN (2) Sepsis Current Visit: Yes Status: Acute Comment: 2/2 to staph infection, staph bacteremia from surgical site infection -Vanc and Zosyn to remain on 10/05 overnight given continuing to spike fevers, post op narrow to Cefazolin if remains afebrile -Lactate trended down -CXR unremarkable, urine showing signs of UTI, Urine Cx rec'd per lab -Remains on LR per surgery -Will need daily blood culture and ID consult to determine senior care abx mgmt (3) Staphylococcus aureus bacteremia Current Visit: Yes Status: Acute Code(s): R78.81 - BACTEREMIA SNOMED Code( s): 483408756 Comment: Continue broad spectrum for 10/05/18 PM, today narrow to Cefazolin after surgery -ID consult 10/06 -Routine blood cultures daily until neg -FRANCISCO J per ID recs if appropriate (4) Hyponatremia Current Visit: Yes Status: Acute Code(s): E87.1 - HYPO-OSMOLALITY AND HYPONATREMIA SNOMED Code(s): 67842231 Comment: Appears chronic, mild at 130 on admission -Trend and evaluate urine as necessary (5) Altered mental state Current Visit: Yes Status: Resolved Code(s): R41.82 - ALTERED MENTAL STATUS , UNSPECIFIED SNOMED Code(s): 786243938 Comment: During setting of fever, tachycardia, most likely from infection, neurological exam is intact -hypercarbia r/o ABG -Improved sig today (6) DMII (diabetes mellitus, type 2) Current Visit: No Status: Acute Comment: - Very poor control in the hospital like 2/2 to infection - Increase glargine 25U QHS, Lispro 6 U AC and SSI for post meal coverage - Will resume oral medications at D/C - A1C 10.3 reflecting likely need for home on Lantus (7) Obesity Current Visit: No Status: Acute Code(s): E66.9 - OBESITY, UNSPECIFIED SNOMED Code(s): 736313724 Comment: Concern for OHS/MILAN (8) DVT prophylaxis Current Visit: Yes Status: Acute Code(s): [id number] - SNOMED Code(s): 606508158 Comment: Lovenox q 24 hrs Status and Disposition: Remains inpatient on med tele service with NS consult
[2018-10-06] MEDS: Ibuprofen TAB* 800 MG PO PRN (08:27)
[2018-10-06] MEDS: Insulin LISPRO* 1 UNITS UNIT SUBCUT SCH ×7 (08:27→20:52)
[2018-10-06] MEDS: Potassium Chlor TAB* 20 MEQ TAB.ER PO SCH ×2 (08:27→20:18)
[2018-10-06] MEDS ORDERED: Vancomycin Trough Check NOTE FOLLOW UP ONE ×2 (08:30)
[2018-10-06] MEDS: Vancomycin(*) 1,500 MG in NS 0.9% 250 ML* 250 ML IVPB SCH (09:11)
[2018-10-06 10:44] LABS: ABS Basophils 0 10^3/ul (0-0.2); ABS Eosinophils 0 10^3/ul (0-0.6); ABS Lymphocytes 0.2 10^3/ul (1.0-4.8); ABS Monocytes 0.2 10^3/ul (0-0.8); ABS Neutrophils 3.1 10^3/ul (1.5-7.7); ABS Nucleated RBC 0 10^3/ul; Eosinophil % 0.9 %; Lymphocyte % 6.7 %; Mean Platelet Volume 9.4 fL (7.4-10.4); Nucleated Red Blood Cells % 0.1; Platelet Count 99 10^3/ul (150-450)
--- NOTE | 2018-10-06 11:47 | PN ---
Progress Note - Progress Note Date of Service: 10/06/18 SOAP: Subjective: [Patient seen and evaluated this morning [address] Carmichael. S/p decompressive lumbar laminectomy L2-3 on 09/17/18. Admitted for lumbar wound infection on 10/04/18. Transferred to tele floor yesterday. Patient reports wound drainage overnight. Back pain improved with pain medications. Nausea last night. ] Objective: [ Vital Signs: Temp Pulse Resp BP Pulse Ox 99.0 F 96 20 114/71 98 10/06/18 11:05 10/06/18 11:05 10/06/18 11:05 10/06/18 11:05 10/06/18 11:05 General: Laying comfortably supine in bed Neuro: Motor intact, RLE sensation diminished at baseline secondary to previous fusion surgery. Incision: Lumbar surgical wound dehiscence, draining significant amount fluid. ] Assessment/Plan: [Lumbar wound drainage increased yesterday and overnight. MRI lumbar w/wo obtained yesterday shows large subcutaneous collection of fluid infection. Recommend lumbar wound wash out and reclosure. Procedure was discussed with the patient and she would like to proceed. Plan is for lumbar wound wash out in OR today. Patient permitted clear liquid breakfast this morning, other watson NPO. ]
[2018-10-06] MEDS ORDERED: Insulin LISPRO* 1 UNITS UNIT SUBCUT ONE (12:45)
[2018-10-06] MEDS ORDERED: Famotidine IV* 10 MG/ML 2 ML (20 mg) IV ONE (13:52)
[2018-10-06] MEDS ORDERED: Buffered Lidocaine 1% SYRIN* 1 ML/SYRINGE INTRADERM ONE (13:52)
[2018-10-06] MEDS ORDERED: Ondansetron INJ* 2 MG/ML VIAL IV ONE (13:52)
[2018-10-06] MEDS ORDERED: Ondansetron INJ* 2 MG/ML VIAL ONE (13:55)
[2018-10-06] MEDS ORDERED: Famotidine IV* 10 MG/ML 2 ML (20 mg) ONE (13:55)
[2018-10-06] MEDS ORDERED: Propofol* 10 MG/ML 20 ML BTL ONE (14:09)
[2018-10-06] MEDS ORDERED: Lidocaine 2% PF * 5 ML VIAL ONE (14:09)
[2018-10-06] MEDS ORDERED: fentaNYL* 50 MCG/ML 2 ML VIAL (100 MCG VIAL) ONE (14:10)
[2018-10-06] MEDS ORDERED: KETAMINE HCL* 50 MG/ML 10 ML VIAL ONE (14:10)
[2018-10-06] MEDS ORDERED: Midazolam* 1 MG/ML 10 ML VIAL (10 MG) ONE (14:10)
[2018-10-06] MEDS ORDERED: Lidocaine 1% MPF wEPI 200,000* 30 ML SDV ONE (14:14)
[2018-10-06] MEDS ORDERED: Bacitracin IV* 50,000 UNITS INJ ONE (14:14)
[2018-10-06] MEDS ORDERED: Thrombin 5,000 UNITS* 1 APPLIC KIT - topical use - TOPICAL ONE (14:14)
[2018-10-06] MEDS ORDERED: Naloxone* 0.4 MG/ML 1 ML VIAL IV PRN (15:00)
[2018-10-06] MEDS ORDERED: Ondansetron INJ* 2 MG/ML VIAL IV PRN (15:00)
[2018-10-06] MEDS ORDERED: fentaNYL* 50 MCG/ML 2 ML VIAL (100 MCG VIAL) IV PRN (15:00)
[2018-10-06] MEDS: Lactated Ringers 1000 ML Bag* 1,000 ML IV SCH (16:23)
[2018-10-06] MEDS: ceFAZolin 2 GM PREMIX in ORs 2 GM/50 ML BAG IVPB SCH ×2 (16:23→22:54)
[2018-10-06] MEDS: Enoxaparin(*) 40 MG/0.4 ML SYR SUBCUT SCH (16:51)
[2018-10-06] MEDS: Insulin GLARGINE(*) 1 UNITS UNIT SUBCUT SCH (16:51)
[2018-10-06] MEDS ORDERED: Vancomycin(*) 1,250 MG in NS 0.9% 250 ML* 250 ML IVPB SCH (17:00)
[2018-10-06] MEDS: oxyCODONE TAB* 5 MG TAB PO PRN ×2 (18:10→22:29)
[2018-10-06] MEDS: Docusate CAP* 100 MG PO SCH (20:18)
[2018-10-06] MEDS: Senna TAB PO SCH (20:18)
[2018-10-06] MEDS: Polyethylene Glycol 3350* 17 GM PACKET PO PRN (20:18)
[2018-10-07] MEDS: Ondansetron INJ* 2 MG/ML VIAL IV PRN ×2 (01:34→07:22)
[2018-10-07] MEDS: oxyCODONE TAB* 5 MG TAB PO PRN ×3 (03:21→21:11)
[2018-10-07] MEDS: Lactated Ringers 1000 ML Bag* 1,000 ML IV SCH ×2 (07:10→17:11)
[2018-10-07] MEDS: ceFAZolin 2 GM PREMIX in ORs 2 GM/50 ML BAG IVPB SCH ×3 (07:10→17:14)
--- NOTE | 2018-10-07 07:13 | PN ---
Subjective Date of Service: 10/07/18 Interval History: HD # 3 10/07/18 57 yo F with PMH recent laminectomy 3 weeks ago presented with surgical wound infection and back pain hospital stay b/c sepsis and staph bacteremia. Overnight no acute events, c/o pain off and on Oxycodone 5mg x3, PRN tylenol and flexeril offered. T Max 98, HR 103-106, BP 101-116/73-76, satting well on RA. Voiding urine, no BM as of yet, started regimen, 125cc out of IRENE drain placed yesterday, 10/06 in washout procedure done by neurosurg. ID is consult as of 10/06. Will likely need PICC line today. Glu elevated throughout night, got 25U of Lantus yesterday afternoon, along with 6 U bolus and SSI corrective. This morning sitting up in chair, feeling better than in prior days. Gets relief from Flexeril, making good urine, tolerating diet, has pain in back but it is improving compared to admission. Just finished getting TTE. Otherwise pleasant and well with no acute issues Objective Active Medications: Acetaminophen (Tylenol Tab*) 650 mg PO Q4H PRN PRN Reason: FEVER/PAIN Last Admin: 10/06/18 03:45 Dose: 650 mg Cyclobenzaprine HCl (Flexeril Tab*) 10 mg PO TID PRN PRN Reason: muscle spasms Last Admin: 10/04/18 21:51 Dose: 10 mg Dextrose (D50w Syringe 50 Ml*) 12.5 gm IV PUSH .FOR FS < 60 - SS PRN PRN Reason: FS < 60 Docusate Sodium (Colace Cap*) 100 mg PO 0900,2100 [facility] Last Admin: 10/06/18 20:18 Dose: 100 mg Enoxaparin Sodium (Lovenox(*)) 40 mg SUBCUT Q24H [facility] Last Admin: 10/06/18 16:51 Dose: 40 mg Lactated Ringer's (Lactated Ringers 1000 Ml Bag*) 1,000 mls @ 125 mls/hr IV PER RATE [facility] Last Admin: 10/06/18 16:23 Dose: 125 mls/hr Cefazolin Sodium/Dextrose (Kefzol 2 Gm Premix In Ors(*)) 2 gm in 50 mls @ 100 mls/hr IVPB Q8H [facility] Last Admin: 10/06/18 22:54 Dose: 100 mls/hr Ibuprofen (Motrin Tab*) 800 mg PO Q8H PRN PRN Reason: PAIN Last Admin: 10/06/18 08:27 Dose: 800 mg Insulin Glargine (Lantus(*)) 25 units SUBCUT Q24H [facility] Last Admin: 10/06/18 16:51 Dose: 25 units Insulin Human Lispro (Humalog*) 0 units SUBCUT ACHS [facility]; Protocol Last Admin: 10/06/18 20:52 Dose: 15 units Insulin Human Lispro (Humalog*) 6 units SUBCUT AC [facility] Last Admin: 10/06/18 16:51 Dose: 6 units Ondansetron HCl (Zofran Inj*) 4 mg IV Q6H PRN PRN Reason: NAUSEA Last Admin: 10/07/18 01:34 Dose: 4 mg Oxycodone HCl (Roxycodone Tab*) 5 mg PO Q4H PRN PRN Reason: PAIN Last Admin: 10/07/18 03:21 Dose: 5 mg Polyethylene Glycol/Electrolytes (Miralax*) 17 gm PO DAILY PRN PRN Reason: CONSTIPATION Last Admin: 10/06/18 20:18 Dose: 17 gm Potassium Chloride (Klor Con Er Tab*) 20 meq PO BID [facility] Stop: 10/07/18 23:59 Last Admin: 10/06/18 20:18 Dose: 20 meq Senna (Senokot Tab*) 1 tab PO 2100 [facility] Last Admin: 10/06/18 20:18 Dose: 1 tab Vital Signs - 8 hr 10/07/18 10/07/18 10/07/18 00:00 00:15 00:40 Temperature 98.0 F Pulse Rate 106 Respiratory 20 18 Rate Blood Pressure 101/77 (mmHg) O2 Sat by Pulse 98 98 Oximetry 10/07/18 10/07/18 10/07/18 03:21 03:55 06:05 Temperature 98.0 F Pulse Rate 103 Respiratory 20 18 18 Rate Blood Pressure 116/73 (mmHg) O2 Sat by Pulse 97 Oximetry 10/07/18 06:54 Temperature Pulse Rate Respiratory 18 Rate Blood Pressure (mmHg) O2 Sat by Pulse Oximetry Oxygen Devices in Use Now: None Appearance: Well appearing woman sitting up in chair Ears/Nose/Mouth/Throat: NL Teeth, Lips, Gums, Mucous Membranes Moist Neck: NL Appearance and Movements; NL JVP Respiratory: Symmetrical Chest Expansion and Respiratory Effort, Clear to Auscultation Cardiovascular: NL Sounds; No Murmurs; No JVD, RRR Abdominal: NL Sounds; No Tenderness; No Distention Lymphatic: No Cervical Adenopathy Extremities: No Edema Skin: No Rash or Ulcers, - - Back with well dressed wound, IRENE drain in place Neurological: Alert and Oriented x 3 Result Diagrams: 10/07/18 06:51 10/07/18 06:51 Additional Lab and Data: ABG done 10/05 normal Repeat blood cx 10/06 pending in micro Microbiology and Other Data: Microbiology 10/04/18 19:49 Aerobic Blood Culture - Preliminary Blood Venous Anaerobic Blood Culture - Preliminary 10/04/18 19:50 Aerobic Blood Culture - Preliminary Blood Venous Anaerobic Blood Culture - Preliminary Blood MRSA/MSSA (PCR) - Final Mrsa Negative S.aureus Positive 10/04/18 23:55 Skin and Soft Tissue MRSA/MSSA (PCR - Final Back Mrsa Negative S.aureus Positive Gram Stain - Final 10/04/18 22:25 Nasal Screen MRSA (PCR) - Final Nasal Mrsa Not Detected Diagnostic Imaging: CXR: No acute path Assess/Plan/Problems-Billing Plan By Medical Problem: 57 yo F with PMH NIDDM and s/p back surgery 3 weeks ago, also with chronic hypoNA came in for acute onset pain currently on neurosurgical service, found to have epidural enhancement c/w wound infection c/b staph bacteremia and sepsis which is resolving. She is s/p washout with IRENE drain placement on . - Patient Problems (1) Back pain Current Visit: Yes Status: Acute Code(s): M54.9 - DORSALGIA, UNSPECIFIED SNOMED Code(s): 474464268 Comment: Most c/w surgical site infection with e/o epidural enhancement and jeanie collection - s/p washout with some improvement - Tylenol ATC, Flexeril PRN, Oxy 5 PRN - Ibuprofen PRN (2) Sepsis Current Visit: Yes Status: Acute Comment: 2/2 to staph infection, staph bacteremia from surgical site infection - Vanc and Zosyn 10/04-10/06, narrowed to Cefazolin 10/06, currently on Day 4/4-6 weeks, appreciate ID recs - Lactate trended down - CXR unremarkable, Urine Cx NGTD, repeat blood cx rec'd - Remains on LR per surgery (3) Staphylococcus aureus bacteremia Current Visit: Yes Status: Acute Code(s): R78.81 - BACTEREMIA SNOMED Code( s): 361986152 Comment: - Currently on Cefazolin for MSSA since 10/06, prior Vanc + Zosyn for sepsis, currently Day 4/-6 weeks abx on 10/07/18 - ID consult in place - Routine blood culture until neg - PICC today - TTE to evaluate for valvular path (4) Hyponatremia Current Visit: Yes Status: Acute Code(s): E87.1 - HYPO-OSMOLALITY AND HYPONATREMIA SNOMED Code(s): 90989301 Comment: Appears chronic, mild at 130 on admission - Trend and evaluate urine as necessary (5) Thrombocytopenia Current Visit: Yes Status: Acute Code(s): D69.6 - THROMBOCYTOPENIA, UNSPECIFIED SNOMED Code(s): 222296352 Comment: New onset now at 85, initially 160 on admission - Possibly all 2/2 to sepsis, meds - 4T score was 3 for HIT, low probability given no clear onset of 5 to 10 days no new thrombosis, will continue to monitor if onofre falls below 50, will d/c Lovenox (6) Hypokalemia Current Visit: Yes Status: Acute Code(s): E87.6 - HYPOKALEMIA SNOMED Code( s): 15578182 Comment: Started supplemneation at 20 BID yesterday, increase to 40 BID today 10/07 (7) DMII (diabetes mellitus, type 2) Current Visit: No Status: Acute Comment: - Very poor control in the hospital like 2/2 to infection - Glargine 25U QHS, Lispro 6->8 U AC and SSI for post meal coverage, may increase today as more POC gluose data - Will resume oral medications at D/C - A1C 10.3 reflecting likely need for home on Lantus (8) Obesity Current Visit: No Status: Acute Code(s): E66.9 - OBESITY, UNSPECIFIED SNOMED Code(s): 711372996 Comment: Concern for OHS/MILAN (9) DVT prophylaxis Current Visit: Yes Status: Acute Code(s): [id number] - SNOMED Code(s): 881360061 Comment: Lovenox q 24 hrs-watch plts Status and Disposition: Remains inpatient on med tele service with NS consult
[2018-10-07 07:16] LABS: BUN/Creatinine Ratio 12.3 (8-20); Hematocrit 33 % (35-47); Hemoglobin 11.5 g/dl (12.0-16.0); Mean Corpuscular HGB Conc 34 g/dl (31-36); Mean Corpuscular Hemoglobin 31 pg (27-31); Mean Corpuscular Volume 89 fL (80-97); Mean Platelet Volume 9.2 fL (7.4-10.4); Platelet Count 85 10^3/ul (150-450); Red Blood Count 3.75 10^6/ul (4.00-5.40); Red Cell Distribution Width 13 % (10.5-15); White Blood Count 3.5 10^3/ul (3.5-10.8)
[2018-10-07] MEDS: Cyclobenzaprine TAB* 10 MG PO PRN ×2 (07:20→17:49)
[2018-10-07] MEDS: Acetaminophen TAB* 325 MG PO PRN (07:21)
[2018-10-07] MEDS ORDERED: Perflutren Lipid Microsphere* 3 ML VIAL ONE (07:53)
[2018-10-07 07:58] LABS: Immature Granulocytes 4 % (0-9); Lymphocytes % 25 %; Monocytes % 6 %; Neutrophil % 63 %
[2018-10-07 07:59] LABS: ABS Neutrophils 2.3 10^3/ul (1.5-7.7)
[2018-10-07 08:00] LABS: ABS Eosinophils 0.07 10^3/ul (0-0.6)
[2018-10-07] MEDS: Insulin LISPRO* 1 UNITS UNIT SUBCUT SCH ×7 (08:46→21:10)
[2018-10-07] MEDS: Polyethylene Glycol 3350* 17 GM PACKET PO PRN (08:46)
[2018-10-07] MEDS: Docusate CAP* 100 MG PO SCH ×2 (08:46→21:00)
[2018-10-07] MEDS: Potassium Chlor TAB* 20 MEQ TAB.ER PO SCH ×2 (08:46→21:00)
--- NOTE | 2018-10-07 10:16 | CONS ---
CONSULTATION REPORT: DATE OF CONSULT: 10/07/18 REQUESTING PHYSICIAN: Dr. Wilder. CONSULTING SERVICE: Infectious Diseases. REASON FOR CONSULTATION: Staphylococcal bacteremia. IMPRESSION: 1. Status post decompressive lumbar laminectomy L2-L3, 09/17/18, with staphylococcal bacteremia and epidural abscess, prior lumbar spine fusion at L3-S1 complicated by infection. 2. Morbid obesity. 3. PENICILLIN allergy caused hives, tolerating Ancef. 4. Insulin-dependent diabetes. RECOMMENDATIONS: Ancef 2 g IV every 8 hours. She will have 6 or 8 weeks of antibiotics. Weekly CBC , CMP, CRP while she is on IV antibiotics. She will have a transthoracic echocardiogram for regurgit ant valve lesions or other large vegetation, but assuming that is negative and given that she is nader g to have 6 weeks of IV antibiotics, I do not believe she will need any transesophageal echocardiogra m. We will change the cefazolin from 2 g every 8 hours to 2 g every 6 hours given her weight. HISTORY OF PRESENT ILLNESS: This is a 57-year-old woman with obesity and diabetes, who had a lumbar laminectomy in August, did well initially and then developed low back pain, drainage from her wound , fever, chills and sweats and she came to the hospital on 10/04/18. White count was 10, she was oct rile, her blood cultures 12/24 growing MSSA. She had an incision and debridement yesterday which she t olerated well. The fluid taken, the culture is pending. The PCR is positive for MSSA. She has no o ther joint pain. She has a right knee replacement which is not bothering her more than usual. She h as no other prosthetic material present. She had a lumbar spine fusion at [facility] years ago, which was complicated by infection; she kovacs s not remember the organism. ALLERGIES: PENICILLIN causes hives. In addition, ROSUVASTATIN, CODEINE and TAPE. MEDICATIONS: 1. Tylenol. 2. Flexeril. 3. Docusate. 4. Enoxaparin. 5. Famotidine. 6. Insulin glargine. 7. Ibuprofen as needed. 8. Insulin lispro. 9. Cefazolin 2 g IV every 8 hours. 10. Senna. SOCIAL HISTORY: She lives in [place] with her and daughter. No travel, she is nonsmoker. FAMILY HISTORY: Diabetes, no recurrent infections. REVIEW OF SYSTEMS: All negative to 14-point review except as noted above in history of present illne ss. PHYSICAL EXAM: Vital Signs: Temperature 37, heart rate 100, respiratory rate 16, blood pressure 109 /70, oxygen saturation 98% on room air. In general, she is awake, not in distress, eating breakfast. HEENT: There is no conjunctival hemorrhage. Oropharynx without lesions. Neck: Supple without ma ss. Heart: Regular rate and rhythm without murmurs, rubs or gallops. Lungs: Clear to auscultation bilaterally. Abdomen: Soft, nontender, nondistended. Bowel sounds present. Skin: There is no kevin h or splinter hemorrhage. Musculoskeletal: Lumbar spine incision intact. There is no surrounding e rythema. There is no joint synovitis. In her right knee, there is no effusion. There is a well-hea led arthroplasty scar. LAB DATA: White blood cell count 3, hemoglobin 11, platelets 85, creatinine is 0.6. Please see impression and recommendations as outlined above. Thank you for asking me to see Ms. Lynn in consultation. [id number]/[facility] #: [id number]
--- NOTE | 2018-10-07 12:43 | OP ---
DATE OF OPERATION: 10/06/18 - ROOM #447 DATE OF : 60 PRIMARY SURGEON: Neville Carmichael MD ANESTHESIA: Local with monitored anesthesia care. PRE-OP DIAGNOSIS: Infected lumbar wound. POST-OP DIAGNOSIS: Infected lumbar wound. OPERATIVE PROCEDURE: Incision and debridement of infected lumbar wound with subfascial dissection. DESCRIPTION OF PROCEDURE: The patient was placed on operating table in the left lateral decubitus position and after satisfactory IV sedation had been given, the lumbar region was prepped and draped in a sterile manner for exploration of a postoperative lumbar wound infection. Local anesthetic was applied to her previous incision and the incision opened with flow of marked purulent fluid noted. The patient had already had cultures confirming that this was a Staph aureus infection sensitive to cephalosporins. The dissection was carried down until the fascial sutures were identified and divided. This enabled irrigation and debridement down to the dural level. After having the wound widely opened, copious amounts of antibiotic irrigation was applied to the wound. A Selvin drain was then placed in the wound and tunnelled out towards the left side. The wound was then closed using 0 Prolene horizontal mattress interrupted sutures as a single layer. The estimated blood loss was less than 50 cc and the final sponge, padding and needle counts were correct. The patient was taken to the recovery room in stable condition. [id number]/[facility] #: [id number] [facility]
--- NOTE | 2018-10-07 13:36 | ECHO ---
Patient: PATRICE FLANNERY [facility] Rec#: [id number] : 1960 Date: 10/07/2018 Age: 57y Height: 168 cm / 66.1 in Weight: 145.2 kg / 320.0 lbs Sex: F BSA: 2.45 Room#: [facility] Admit Date#: 10/05/2018 Type: Inpatient Referring: Maggie Barajas MD Reading: Crista Chisholm MD Tile Burner: Libby Paez RDCS CC: Julianna Catalan MD Transthoracic Echocardiogram Indication: Bacteremia BP: 116/73 HR: 102 Rhythm: Tachycardia Findings History: Obesity,+ Blood cultures Staph Aureus,DM,HLD,HTN, s/p lumbar surgery with drain present. Technical Comments: The study is technically difficult. Definity used to enhance images. The study is technically limited due to patient body habitus. The study was technically limited due to the patient's inability to lay in the left lateral decubitus position. This was secondary to lumbar drain placement. Left Ventricle: The left ventricular chamber size is normal. The estimated ejection fraction is 50-55%. septum appears dysynchronous in some views, otherwise grossly normal wall motion and contractility. Left Atrium: The left atrium is not well visualized. Right Ventricle: The right ventricle is not well visualized.Grossly normal systolic function. Right Atrium: The right atrium is not well visualized. Aortic Valve: The aortic valve structure is not well visualized. Mitral Valve: The mitral valve structure is not well visualized. Tricuspid Valve: The tricuspid valve structure is not well visualized. Pulmonic Valve: The pulmonic valve structure is not well visualized. Pericardium: A pericardial fat pad is visualized. Aorta: The ascending aorta is not well visualized. The aortic arch is not well visualized. There is no dilation of the aortic root. Pulmonary Artery: The main pulmonary artery is not well visualized. Venous: The venous system is not well visualized. Contrast: Definity was used to optimize study. A total of 4 ml used. Intravenous contrast was used to enhance endocardial border definition. Conclusions The study is technically difficult. Definity used to enhance images. The estimated ejection fraction is 50-55%. septum appears dysynchronous in some views, otherwise grossly normal wall motion and contractility. The right ventricle is not well visualized.Grossly normal systolic function. Valves not well visualized. No prior study to compare. If clinically indicated I recommend FRANCISCO J (transesophogeal echo) to image valves, unable to comment at all on valve morphology or function. Measurements Name Value Normal Range RVIDd (AP) 2D 2.6 cm (0.9 - 2.6) IVSd (2D) 0.8 cm (0.6 - 1) LVPWd (2D) 0.8 cm (0.6 - 1) LVIDd (2D) 4.2 cm (3.6 - 5.4) LVIDs (2D) 2.7 cm - LV FS (2D) 36 % (25 - 45) Aortic Annulus 1.8 cm (1.4 - 2.6) Ao root diameter (2D) 3 cm (2.1 - 3.5)
[2018-10-07] MEDS ORDERED: Insulin GLARGINE(*) 1 UNITS UNIT SUBCUT SCH (17:00)
[2018-10-07] MEDS: Enoxaparin(*) 40 MG/0.4 ML SYR SUBCUT SCH (17:13)
[2018-10-07] MEDS: Senna TAB PO SCH (21:00)
[2018-10-07] MEDS ORDERED: Morphine VIAL* 4 MG/ML VIAL (1 ml vial) IV ONE (21:45)
[2018-10-08] MEDS: ceFAZolin 2 GM PREMIX in ORs 2 GM/50 ML BAG IVPB SCH ×3 (00:15→11:35)
[2018-10-08] MEDS: Cyclobenzaprine TAB* 10 MG PO PRN ×2 (05:00→08:08)
[2018-10-08] MEDS: oxyCODONE TAB* 5 MG TAB PO PRN ×2 (05:00→09:34)
[2018-10-08 07:55] LABS: ABS Basophils 0 10^3/ul (0-0.2); ABS Eosinophils 0.1 10^3/ul (0-0.6); ABS Lymphocytes 1.4 10^3/ul (1.0-4.8); ABS Monocytes 0.5 10^3/ul (0-0.8); ABS Neutrophils 2.7 10^3/ul (1.5-7.7); ABS Nucleated RBC 0 10^3/ul; Eosinophil % 1.1 %; Hematocrit 34 % (35-47); Hemoglobin 11.6 g/dl (12.0-16.0); Lymphocyte % 29.8 %; Mean Corpuscular HGB Conc 34 g/dl (31-36); Mean Corpuscular Hemoglobin 31 pg (27-31); Mean Corpuscular Volume 89 fL (80-97); Mean Platelet Volume 9.3 fL (7.4-10.4); Nucleated Red Blood Cells % 0; Platelet Count 121 10^3/ul (150-450); Red Cell Distribution Width 13 % (10.5-15); White Blood Count 4.7 10^3/ul (3.5-10.8)
[2018-10-08] MEDS: Polyethylene Glycol 3350* 17 GM PACKET PO PRN (08:08)
[2018-10-08] MEDS: Ibuprofen TAB* 800 MG PO PRN (08:08)
[2018-10-08] MEDS: Docusate CAP* 100 MG PO SCH (08:08)
[2018-10-08] MEDS: Insulin LISPRO* 1 UNITS UNIT SUBCUT SCH ×4 (08:09→11:34)
[2018-10-08] MEDS: Acetaminophen TAB* 325 MG PO PRN (08:09)
[2018-10-08 08:16] LABS: BUN/Creatinine Ratio 8.6 (8-20); C Reactive Protein 170.56 mg/L (<8.01); Calcium 8.6 mg/dL (8.6-10.3); EGFR Non-African American 86.2 (>60); Potassium 3.4 mmol/L (3.5-5.0)
[2018-10-08] MEDS ORDERED: Vancomycin Trough Check NOTE FOLLOW UP ONE (08:30)
--- NOTE | 2018-10-08 09:30 | PN ---
Progress Note - Progress Note Date of Service: 10/08/18 SOAP: Subjective: CC: epidural abscess HPI: 57 year old woman with hx L spine fusion and recent L spine decompression with MSSA bacteremia and JEREMY. Tolerated surgery well. Pain improving, no fever , rash, or diarrhea. Objective: Vital Signs Temp 37.6 C 10/08/18 08:04 Pulse 103 10/08/18 08:04 Resp 20 10/08/18 08:14 BP 144/87 10/08/18 08:04 Pulse Ox 98 10/08/18 08:04 Intake & Output 10/07/18 10/08/18 10/08/18 18:59 06:59 18:59 Intake Total 2608 1755 Output Total 445 Balance 2163 1755 Intake: IV Fluids 1911 1155 ABX - CEFAZOLIN 50 LR 1911 1105 IVPB 216 LR 216 Oral 480 600 Output: IRENE #1 45 Urine 400 Other: Estimated Void Medium # Voids 2 8 Gen:AAOx3 HEENT: no thrush Heart:RRR no murmur Lungs:CTA BL Abd:+BS NTND soft Skin: no rash MSK: L spine bandaged Laboratory Results - last 24 hr 10/07/18 10/07/18 10/07/18 06:51 11:16 16:18 WBC RBC Hgb Hct MCV MCH MCHC RDW Plt Count MPV Neut % (Auto) Lymph % (Auto) Lassen % (Auto) Eos % (Auto) Baso % (Auto) Absolute Neuts (auto) Absolute Lymphs (auto) Absolute Monos (auto) Absolute Eos (auto) Absolute Basos (auto) Absolute Nucleated RBC Nucleated RBC % Hem Pathologist Commnt Sodium Potassium Chloride Carbon Dioxide Anion Gap BUN Creatinine Est GFR ( Amer) Est GFR (Non-Af Amer) BUN/Creatinine Ratio Glucose POC Glucose (mg/dL) 286 H 222 H Calcium C-Reactive Protein 10/07/18 10/08/18 10/08/18 20:10 07:08 07:42 WBC 4.7 RBC 3.80 L Hgb 11.6 L Hct 34 L MCV 89 MCH 31 MCHC 34 RDW 13 Plt Count 121 L MPV 9.3 Neut % (Auto) 58.0 Lymph % (Auto) 29.8 Lassen % (Auto) 10.6 Eos % (Auto) 1.1 Baso % (Auto) 0.5 Absolute Neuts (auto) 2.7 Absolute Lymphs (auto) 1.4 Absolute Monos (auto) 0.5 Absolute Eos (auto) 0.1 Absolute Basos (auto) 0 Absolute Nucleated RBC 0 Nucleated RBC % 0 Hem Pathologist Commnt Sodium Potassium Chloride Carbon Dioxide Anion Gap BUN Creatinine Est GFR ( Amer) Est GFR (Non-Af Amer) BUN/Creatinine Ratio Glucose POC Glucose (mg/dL) 212 H 199 H Calcium C-Reactive Protein 10/08/18 07:42 WBC RBC Hgb Hct MCV MCH MCHC RDW Plt Count MPV Neut % (Auto) Lymph % (Auto) Lassen % (Auto) Eos % (Auto) Baso % (Auto) Absolute Neuts (auto) Absolute Lymphs (auto) Absolute Monos (auto) Absolute Eos (auto) Absolute Basos (auto) Absolute Nucleated RBC Nucleated RBC % Hem Pathologist Commnt Sodium 135 Potassium 3.4 L Chloride 99 L Carbon Dioxide 27 Anion Gap 9 BUN 6 Creatinine 0.70 Est GFR ( Amer) 104.4 Est GFR (Non-Af Amer) 86.2 BUN/Creatinine Ratio 8.6 Glucose 198 H POC Glucose (mg/dL) Calcium 8.6 C-Reactive Protein 170.56 H Assessment: 1. MSSA bacteremia, persistent; TTE benign, no murmur, no peripheral stigmata of IE and she will have long course IV abx so does not need FRANCISCO J. 2. MSSA epidural abscess; adjacent prior fusion hardware 3. morbid obesity 4. IDDM Plan: 1. Ancef while here, then daptomycin 1000 mg IV daily (7 mg/kg) to complete 8 weeks w weekly cbc, cmp, crp, ck (ordered). 2. FU BC pending
[2018-10-08] MEDS ORDERED: RiFAMPin CAP* 300 MG CAP PO SCH (10:00)
--- NOTE | 2018-10-08 10:30 | PN ---
Progress Note - Progress Note Date of Service: 10/08/18 SOAP: Subjective: [Admitted for lumbar wound infection, MSSA bacteremia. S/p decompressive lumbar laminectomy L2-3 on 09/17/19, lumbar wound wash out and reclosure on 10/06/18. Wound drain lost suction and removed last night. Patient reports low back discomfort and skin sensitivity this morning. Pain well controlled with PO medications. Ambulating with assistance. Eating and drinking well. ID following. ] Objective: [ Vital Signs: Temp Pulse Resp BP Pulse Ox 99.7 F 103 20 144/87 98 10/08/18 08:04 10/08/18 08:04 10/08/18 09:34 10/08/18 08:04 10/08/18 08:04 General: Alert and laying in bed on side Neuro: Motor intact. Sensation decreased RLE at baseline. Incision: Intact with suture. No swelling. Drain stitch removed today, drain dc last night. Skin irritation likely from dressing tape. Dressing in place. Wound drain output 10/06/18 10/06/18 10/07/18 16:56 20:15 02:29 Output, IRENE #1 30 30 35 10/07/18 10/07/18 10/07/18 05:37 10:02 13:53 Output, IRENE #1 30 25 20 ] Assessment: [Pt with lumbar wound infection, MSSA bacteremia.] Plan: [1. Encourage up out of bed, ambulation 2. Continue pain management 3. Possible dc home today if able to set up antibiotics infusion]
[2018-10-08 15:38] VITALS: BP 132/82
--- NOTE | 2018-10-08 20:57 | PN ---
Subjective Date of Service: 10/08/18 Interval History: Patient seen today. feeling better. No distress. Eager to go home. Discussed with ID and neurosurgery cleared for discharge on Daptomycin. Family History: Unchanged from Admission Objective Vital Signs - 8 hr 10/08/18 10/08/18 15:20 16:00 Temperature 96.0 F Pulse Rate 87 Respiratory 16 Rate Blood Pressure 132/82 (mmHg) O2 Sat by Pulse 99 99 Oximetry Oxygen Devices in Use Now: None Eyes: No Scleral Icterus, - - EOMI Ears/Nose/Mouth/Throat: NL Teeth, Lips, Gums Neck: NL Appearance and Movements; NL JVP Respiratory: Symmetrical Chest Expansion and Respiratory Effort Cardiovascular: NL Sounds; No Murmurs; No JVD, No Edema Neurological: Alert and Oriented x 3 Result Diagrams: 10/08/18 07:42 10/08/18 07:42 Additional Lab and Data: ABG done 10/05 normal Repeat blood cx 10/06 pending in micro Microbiology and Other Data: Microbiology 10/04/18 19:49 Aerobic Blood Culture - Preliminary Blood Venous Anaerobic Blood Culture - Preliminary 10/04/18 19:50 Aerobic Blood Culture - Preliminary Blood Venous Anaerobic Blood Culture - Preliminary Blood MRSA/MSSA (PCR) - Final Mrsa Negative S.aureus Positive 10/04/18 23:55 Skin and Soft Tissue MRSA/MSSA (PCR - Final Back Mrsa Negative S.aureus Positive Gram Stain - Final 10/04/18 22:25 Nasal Screen MRSA (PCR) - Final Nasal Mrsa Not Detected Diagnostic Imaging: CXR: No acute path Assess/Plan/Problems-Billing Plan By Medical Problem: 57 yo F with PMH NIDDM and s/p back surgery 3 weeks ago, also with chronic hypoNA came in for acute onset pain currently on neurosurgical service, found to have epidural enhancement c/w wound infection c/b staph bacteremia and sepsis which is resolving. She is s/p washout with IRENE drain placement on . - Patient Problems (1) Staphylococcus aureus bacteremia Status: Acute Code(s): R78.81 - BACTEREMIA SNOMED Code(s): 160940751 Comment: - Currently on Cefazolin for MSSA since ok to D/c daptomycin for 50 days. - ID consult in place - PICC today (2) DMII (diabetes mellitus, type 2) Status: Acute Comment: - Very poor control in the hospital like 2/2 to infection - Glargine 25U QHS, Lispro 6->8 U AC and SSI for post meal coverage, may increase today as more POC gluose data - Will resume oral medications at D/C - A1C 10.3 reflecting likely need for home on Lantus (3) HTN (hypertension) Status: Acute Code(s): I10 - ESSENTIAL (PRIMARY) HYPERTENSION SNOMED Code(s) : 21098900 Comment: - Normotensive on only Amlodipine - Continue to hold HCTZ, Losartan - Resume when able. Status and Disposition: Remains inpatient on med tele service with NS consult
== END 2018-10-08 17:00 | disposition home or self-care (01) | DRG 856 ==
LOC: ED 18:25 → SSU 19:34 → OBSVTOIN 10-05 12:00 → MEDTELE 10-05 17:48
PROVIDERS: ADMIT Neurological Surgery; ATTEND Neurological Surgery
PROC: 00D20ZZ Extraction of Dura Mater, Open Approach (ICD-10-PCS; principal; 2018-10-06 14:30)
PROC: 05H633Z Insertion of Infusion Device into Left Subclavian Vein, Percutaneous Approach (ICD-10-PCS; 2018-10-08)
DX: T81.42XA Infection following a procedure, deep incisional surgical site, initial encounter (principal); G06.1 Intraspinal abscess and granuloma; A41.01 Sepsis due to Methicillin susceptible Staphylococcus aureus; Z68.43 Body mass index [BMI] 50.0-59.9, adult; E87.1 Hypo-osmolality and hyponatremia; B95.61 Methicillin susceptible Staphylococcus aureus infection as the cause of diseases classified elsewhere; D69.6 Thrombocytopenia, unspecified; E66.01 Morbid (severe) obesity due to excess calories; E11.65 Type 2 diabetes mellitus with hyperglycemia; I10 Essential (primary) hypertension; E87.6 Hypokalemia; Z96.651 Presence of right artificial knee joint; E78.5 Hyperlipidemia, unspecified; Z88.5 Allergy status to narcotic agent; Z87.891 Personal history of nicotine dependence; Z88.0 Allergy status to penicillin; Z88.8 Allergy status to other drugs, medicaments and biological substances; Z91.048 Other nonmedicinal substance allergy status; Z83.3 Family history of diabetes mellitus; Z84.89 Family history of other specified conditions; Z79.84 Long term (current) use of oral hypoglycemic drugs; Z79.899 Other long term (current) drug therapy
CPT/HCPCS: 36415; 36600; 71046; 72158; 80048; 80053; 80202; 81003; 81015; 82803; 82947; 83036; 83605; 85025; 85060; 86140; 87040; 87070; 87077; 87086; 87150; 87186; 87205; 87640; 87641; 93306; 99283; A9270-GY; A9579; C8929; G8978-GP-CJ; G8979-GP-CH; J0690; J0692; J1650; J2001; J2250; J2270; J2405; J2704; J3010; J3370